=== PATIENT | male | born 1970 | race Caucasian/White ===

== ENCOUNTER 2017-08-24 15:31 | Emergency (ER) | payer SELFPAY ==
[2017-08-24] MEDS ORDERED: Ketorolac Tromethamine 30 MG/ML VIAL ONE (15:58)
[2017-08-24 16:27] LABS: #Eosinphils 0.1 thou/uL (0.0-0.7); #Lymphocytes 1.6 thou/uL (1.20-3.40); #Monocytes 0.8 thou/uL (0.11-0.59); #Neutrophils 4.8 thou/uL (1.40-6.50); %Basophils 0.6 % (0.0-1.0); %Eosinophils 1.6 % (0.0-10.0); %Lymphocytes 21.8 % (21.0-51.0); %Monocytes 10.2 % (0.0-10.0); Hematocrit 41.2 % (42.0-52.0); Mean Platelet Volume 6.6 fL (7.4-10.4); Red Blood Cell (RBC) Count 4.72 mill/uL (4.70-6.10); White Blood Cell (WBC) Count 7.3 thou/uL (4.8-10.8)
[2017-08-24 16:44] LABS: Lactic Acid - Sepsis 1.3 mmol/L (0.5-2.2)
[2017-08-24 16:53] LABS: ALT (SGPT) 27 U/L (8-55); AST (SGOT) 22 U/L (5-34); Alkaline Phosphatase 69 U/L (40-150); Anion Gap 13 mmol/L (10-20); BUN (Urea Nitrogen) 21 mg/dL (8.9-20.6); Bilirubin, Total 0.4 mg/dL (0.2-1.2); Calc. Creatinine Clearance 0 mL/min (70-130); Calcium 9.4 mg/dL (7.8-10.44); Carbon Dioxide 22 mmol/L (22-29); Chloride 105 mmol/L (98-107); Estimated GFR-MDRD 75; Globulin 3.8 g/dL (2.4-3.5); Protein, Total 7.8 g/dL (6.0-8.3)
[2017-08-24] MEDS ORDERED: Morphine 4 MG/ML VIAL ONE (17:08)
--- NOTE | 2017-08-24 20:31 | RAD ---
PELVIS ONE VIEW 08/24/17 HISTORY: Pain. COMPARISON: None. FINDINGS: The exam is limited due to patient rotation. There is gas stretching over the right testicle which ma y be a hernia. There is severe degenerative disease of the right hip with bridging bone formation of the greater tuberosity may be sequela of prior infection. There is heterotopic ossification on the ri ght hip with complete cartilage loss and subchondral sclerosis. There is subchondral cysts of the left hip. IMPRESSION: 1. Gas over the right hemiscrotum may be sequela of a hernia. Clinical correlation advised. 2. Severe degenerative disease of the right hip along with heterotopic ossification and bridging bone between the greater trochanter and the femoral head. These severe asymmetric findings could be sequela of prior septic arthritis. 3. Large subchondral cyst of the left acetabulum. POS: SANTIAGO
--- NOTE | 2017-08-24 20:33 | RAD ---
RIGHT HIP TWO VIEW 08/24/17 HISTORY: Pain. COMPARISON: None. FINDINGS: Severe degenerative changes of the right hip. Heterotopic ossification. Bridging bone within the grea ter trochanter and the femoral head. No displaced fracture. Complete degenerative disc cartilage loss . Lateral upturning of the acetabulum. IMPRESSION: Severe degenerative disease of the right hip with lateral upturning of the acetabulum along with femo ral head remodeling and large subchondral cysts. POS: SANTIAGO
== END 2017-08-24 18:36 | disposition home or self-care (01) ==
LOC: ERS 15:31
DX: M16.11 Unilateral primary osteoarthritis, right hip (principal); F17.210 Nicotine dependence, cigarettes, uncomplicated
CPT/HCPCS: 36415; 72170; 80053; 83605; 85025; 85652; 86140; 96374; 96375; J1885; J2270

== ENCOUNTER 2017-09-08 17:39 | Inpatient (IN) | payer OTHER, SELFPAY ==
[~2017-09-08 17:39] MED LIST: ISOVUE-370 76%-LOCM 1 ML ONE; Iopamidol 370 76% 50 ML VIAL FS ONE
[2017-09-08] MEDS ORDERED: Ibuprofen 200 MG TAB ONE (18:33)
[2017-09-08 19:03] LABS: Hematocrit 44.4 % (42.0-52.0); Mean Platelet Volume 6.1 fL (7.4-10.4); Red Blood Cell (RBC) Count 4.97 mill/uL (4.70-6.10); White Blood Cell (WBC) Count 24.2 thou/uL (4.8-10.8)
[2017-09-08 19:27] LABS: Band 6 % (5-11); Neutrophil 80 % (42-75); Reactive Lymphocytes 1 % (0-10)
[2017-09-08 19:36] LABS: Lactic Acid - Sepsis 2.2 mmol/L (0.5-2.2)
[2017-09-08 19:38] LABS: ALT (SGPT) 86 U/L (8-55); AST (SGOT) 190 U/L (5-34); Alkaline Phosphatase 156 U/L (40-150); Anion Gap 14 mmol/L (10-20); BUN (Urea Nitrogen) 37 mg/dL (8.9-20.6); Bilirubin, Total 0.4 mg/dL (0.2-1.2); Calc. Creatinine Clearance 0 mL/min (70-130); Carbon Dioxide 26 mmol/L (22-29); Chloride 95 mmol/L (98-107); Estimated GFR-MDRD 61; Globulin 6.3 g/dL (2.4-3.5); Protein, Total 9.2 g/dL (6.0-8.3)
[2017-09-08] MEDS ORDERED: Ondansetron HCl/PF 4 MG/2 ML Vial ONE (19:45)
[2017-09-08] MEDS ORDERED: Piperacillin/Tazobactam 4.5 GM in Sodium Chloride 0.9% 100 ML IVPB SCH (19:45)
--- NOTE | 2017-09-08 20:15 | RAD ---
AP VIEW CHEST 09/08/17 HISTORY: Cough. AP view chest is obtained. The lungs are well aerated. No evidence of active intrathoracic disease is seen. No evidence of effusions, pneumonia or pneumothorax seen. IMPRESSION: Unremarkable AP view chest. POS: [facility]
[2017-09-08 20:29] LABS: Sodium 131 mmol/L (135-148)
[2017-09-08] MEDS ORDERED: Morphine 2 mg/2ml in 0.9% NaCl PF SYRINGE ONE (20:29)
[2017-09-08] MEDS ORDERED: Morphine 4 MG/ML VIAL ONE (20:29)
[2017-09-08 20:30] LABS: Mode RA; Modified Allen's Test POSITIVE; Vent NO
[2017-09-08 20:36] LABS: Bilirubin Negative (Negative); Blood, Urine Negative (Negative); Glucose, Urine (Dipstick) Negative (Negative); Ketone, Urine Negative (Negative); Nitrite Negative (Negative); Protein, Urine (Dipstick) Trace mg/dL (Neg-Trace)
[2017-09-08 20:38] LABS: Bacteria/HPF None Seen HPF (None Seen); Hyaline Casts/LPF 7-10 HYALINE CAST LPF (0-3 Hyaline); RBC/HPF 0-3 HPF (0-3); Squamous Epithelial 0-3 HPF (0-3)
--- NOTE | 2017-09-08 22:18 | CT ---
CONTRAST ENHANCED CT IMAGES OF ABDOMEN AND PELVIS 09/08/[address] images of the abdomen and pelvis is obtained after administration of IV and oral contrast. The lung bases are unremarkable. The liver is unremarkable. The spleen contains some splenic granulom as. The pancreas and gallbladder are unremarkable. There is severe degenerative changes seen in the r ight hip joint with extensive interosseous cysts seen. There is a large synovial collection which is eroded upwards into the right iliopsoas muscle extending into the right psoas region migrating upward into the retroperitoneum. This may represent a possible abscess as well versus chronic synovial expa nsion. The right kidney is displaced anteriorly. The left kidney is unremarkable. There is vacuum dis c changes seen at L5-S1 intervertebral disc space. A large right inguinal hernia is seen with herniation of intraperitoneal fat and bowel into the right scrotal sac. IMPRESSION: Severe right hip degenerative change with cystic changes. There is a communication of the right hip j oint with a septated soft tissue collection which has migrated upwards into the right iliopsoas and r ight psoas muscle retroperitoneally. This may represent an unusual extension of synovial or synovial fluid versus possible loculated abscess collection which is originated from a septic right hip. POS: [facility]
[2017-09-08] MEDS ORDERED: Ondansetron ODT 4 MG TAB SL PRN (23:52)
[2017-09-08] MEDS ORDERED: Ondansetron HCl/PF 4 MG/2 ML Vial IVP PRN (23:52)
[2017-09-08] MEDS ORDERED: Acetaminophen 325 MG TAB PO PRN (23:52)
[2017-09-08] MEDS ORDERED: Sodium Chloride 0.9% 1,000 ML IV SCH (23:52)
[2017-09-08] MEDS ORDERED: Morphine 5 mg/5 ml in 0.9% NaCl/PF SYRINGE SLOW IVP PRN (23:54)
[2017-09-08 23:57] VITALS: BMI 25.7
[2017-09-09] MEDS ORDERED: cloNIDine 0.1 MG TAB PO PRN (01:12)
[2017-09-09] MEDS ORDERED: Ondansetron ODT 4 MG TAB PO PRN (01:12)
[2017-09-09] MEDS ORDERED: hydrALAZINE 20 MG/ML VIAL SLOW IVP PRN (01:12)
[2017-09-09] MEDS ORDERED: Ondansetron HCl/PF 4 MG/2 ML Vial IVP PRN (01:12)
[2017-09-09 02:06] LABS: Lactic Acid - Sepsis 0.7 mmol/L (0.5-2.2)
[2017-09-09] MEDS: Sodium Chloride 0.9% 1,000 ML IV SCH ×3 (02:27→16:46)
[2017-09-09] MEDS: Acetaminophen 500 MG TAB PO PRN ×2 (02:29→20:22)
--- NOTE | 2017-09-09 04:44 | HP ---
PRIMARY CARE PROVIDER: Dafne keane. CHIEF COMPLAINT: Abdominal pain and fatigue. HISTORY OF PRESENT ILLNESS: This is a 46-year-old male who presented to [facility] Emergency Department complaining of abdominal pain localizing to the right lower quad rant with hip pain and essentially nonweightbearing with the use of crutches over the last 2-3 weeks. The patient noted fever, worsening pain in the right lower quadrant and hip region with rigors. Th e patient was noted with a T-max of 102.7 degrees and tachycardic. The patient denies any recent tra ridge or injury, but does admit to IV drug abuse with heroin as well as methamphetamines. The patient states he has had to use crutches due to the pain in the right hip which has progressively gotten wor se. The patient describes the pain as sharp in nature, shooting into the back, rating it at 7/10. T he patient also notes a right-sided testicular pain with known history of right inguinal hernia. The patient denies taking any specific alleviating treatment other than the use crutches for ambulation. In the emergency room, the patient underwent evaluation including CT of the abdomen and pelvis show ing evidence of septic arthritis of the right hip with likely abscess into the iliopsoas complex. Th e patient was also noted with an incidental large right inguinal hernia containing peritoneal fat and bowel. The patient was noted with criteria for sepsis and received IV vancomycin and Zosyn in addit ion to 3 liters of normal saline. The patient also received intravenous morphine sulfate and ibuprof en. The patient was transferred to the surgical woods for further evaluation. PAST MEDICAL HISTORY: 1. Polysubstance abuse including heroin and methamphetamines. 2. Tobacco abuse. 3. Right inguinal hernia. PAST SURGICAL HISTORY: Status post vasectomy. CURRENT MEDICATIONS: Reviewed and negative. ALLERGIES: No known drug allergies. FAMILY HISTORY: No inheritable diseases per patient report. SOCIAL HISTORY: The patient resides in [place], [place]. Unemployed. Smokes up to half a pack of ci garettes daily. Positive for IV heroin and methamphetamine use. Occasional alcohol use. REVIEW OF SYSTEMS: The following complete review of systems was negative, unless otherwise mentioned in the HPI or below: Constitutional: Weight loss or gain, ability to conduct usual activities. Skin: Rash, itching. Eyes: Double vision, pain. ENT/Mouth: Nose bleeding, neck stiffness, pain, tenderness. Cardiovascular: Palpitations, dyspnea on exertion, orthopnea. Respiratory: Shortness of breath, wheezing, cough, hemoptysis, fever or night sweats. Gastrointestinal: Poor appetite, abdominal pain, heartburn, nausea, vomiting, constipation, or diarrhea. Genitourinary: Urgency, frequency, dysuria, nocturia. Musculoskeletal: Pain, swelling. Neurologic/Psychiatric: Anxiety, depression. Allergy/Immunologic: Skin rash, bleeding tendency. PHYSICAL EXAMINATION: VITAL SIGNS ON ADMISSION: Blood pressure 108/71, pulse 113, respiratory rate is 18, temperature 101. 8 degrees Fahrenheit, O2 saturation 94% on room air. GENERAL APPEARANCE: This is a 46-year-old male, ill-appearing, in mild distress. HEENT: Pupils are equal, round, and reactive to light and accommodation. Extraocular muscles are in tact. Mild conjunctival injection bilaterally. Nares patent. OP is clear. Teeth in fair repair. NECK: Supple, no cervical adenopathy, no thyromegaly, no carotid bruits, no JVD appreciated. Cervic al spine with full active and passive range of motion. No meningeal signs appreciated. CHEST: Diminished breath sounds in the bases bilaterally. CARDIOVASCULAR: S1, S2 with tachycardia. ABDOMEN: Rounded, soft, nontender, nondistended. Bowel sounds are positive in all 4 quadrants. No hepatosplenomegaly. Mild tenderness to deep palpation in the right upper quadrant. Right inguinal h ernia noted. EXTREMITIES: Warm and dry with fair turgor. Positive tenderness to palpation in the right greater t rochanter region. Limited range of motion and internal external rotation limited by pain. Pulses ar e palpable distally at the dorsalis pedis, posterior tibial, and popliteal arteries bilaterally. Cap illary refill less than 2 seconds. No distal asymmetric edema appreciated. NEUROLOGIC: Cranial nerves II-XII are grossly intact. No focal or lateralizing signs appreciated. PERTINENT LABORATORY AND X-RAY FINDINGS: Sodium 131, potassium 4.4, chloride 95, CO2 of 26, BUN 37, creatinine 1.26 with estimated GFR of 61, glucose 104, lactic acid level ranged between 1.0-2.2, calc ium 10.0, AST 190, ALT of 86, alkaline phosphatase 156, albumin 2.9. CBC showed a white blood cell c ount 24.2, hemoglobin 14, hematocrit 44, platelet count 611 with 80% neutrophilia. Urinalysis showed small leukocyte esterase with 11-20 WBCs per high power field. 7-10 hyaline casts noted. Influenza A and B antigen negative 09/08/2017. Portable chest x-ray dated 09/08/2017 showed no acute cardiopu lmonary process. CT of the abdomen and pelvis dated 09/08/2017 showed severe destructive changes of the right hip with cystic changes noted. Communication of the right hip joint with septated soft tis catherine collection migrating upward to the right iliopsoas and right psoas muscle retroperitoneally. Lar ge right inguinal hernia noted. ASSESSMENT AND PLAN: 1. Sepsis secondary to septic arthritis of the right hip. The patient will be admitted to the surgi hiram woods. We will continue vancomycin 1.25 grams IV q.12h. with additional Zosyn 4.5 grams IV q.6 ho urs. We will consult Orthopedic Surgery Service in the a.m. for evaluation and likely surgical inter vention with incision and debridement. Continue pain control with morphine sulfate 4 mg IV every 4 h ours p.r.n. Continue intravenous normal saline at 125 mL per hour. 2. Question of acute kidney injury. We will continue to avoid nephrotoxic agents and contrast media . Continue intravenous fluids as outlined previously. Repeat creatinine in the a.m. 3. Transaminitis. Suspect secondarily to sepsis; however, patient with polysubstance abuse. Check urine drug screen and hepatitis A, B, and C panel. Repeat LFTs in the a.m. 4. Hyponatremia. Suspect secondarily to #1. Continue normal saline and repeat sodium level in the a.m. 5. Leukocytosis with neutrophilia secondary to #1. Continue treatment as outlined in #1. Repeat CB C in the a.m. 6. Polysubstance abuse including heroin and methamphetamines. We will offer case management consult for drug abstinence programs after discharge. 7. Right inguinal hernia. Refer for outpatient evaluation after discharge. 8. Prophylaxis. Sequential compression devices while in bed. Pepcid 20 mg p.o. b.i.d. 9. Code status is full. Surrogate medical decision maker is the patient's mother.
[2017-09-09] MEDS: Piperacillin/Tazobactam 4.5 GM in Sodium Chloride 0.9% 100 ML IVPB SCH ×3 (05:16→17:09)
[2017-09-09 06:19] LABS: Band 5 % (5-11); Hematocrit 34.5 % (42.0-52.0); Mean Platelet Volume 5.9 fL (7.4-10.4); Neutrophil 83 % (42-75); Red Blood Cell (RBC) Count 3.88 mill/uL (4.70-6.10); White Blood Cell (WBC) Count 20.3 thou/uL (4.8-10.8)
[2017-09-09] MEDS: Morphine 4 MG/ML VIAL SLOW IVP PRN (06:31)
[2017-09-09 06:40] LABS: ALT (SGPT) 59 U/L (8-55); AST (SGOT) 94 U/L (5-34); Alkaline Phosphatase 111 U/L (40-150); Anion Gap 11 mmol/L (10-20); BUN (Urea Nitrogen) 30 mg/dL (8.9-20.6); Bilirubin, Total 0.3 mg/dL (0.2-1.2); Calc. Creatinine Clearance 105 mL/min (70-130); Calcium 8.8 mg/dL (7.8-10.44); Carbon Dioxide 24 mmol/L (22-29); Chloride 103 mmol/L (98-107); Estimated GFR-MDRD 70; Globulin 4.4 g/dL (2.4-3.5); Protein, Total 6.4 g/dL (6.0-8.3)
[2017-09-09 06:44] LABS: Amphetamine Detected (NotDetected); Methadone Not Detected (NotDetected); Methamphetamine Detected (NotDetected)
[2017-09-09] MEDS: Famotidine 20 MG TAB PO SCH ×3 (07:06→21:53)
--- NOTE | 2017-09-09 08:09 | CON ---
DATE OF CONSULTATION: 09/09/2017 CHIEF COMPLAINT: Right hip pain. HISTORY OF PRESENT ILLNESS: Mr. Jeffries is a 46-year-old male who presented to the emergency departm ent last night with severe right lower quadrant abdominal pain and hip pain. He has been basically i n bed for the last 2 weeks because of this pain. He has been worsening steadily. He has had fevers and chills. He presented with temperature max of 102.7. The patient underwent CT scan to rule out a ppendicitis; however, instead of that, he was found to have a large iliopsoas abscess with possible e xtension into the hip joint. Orthopedics was consulted for this finding. He has been admitted to [facility]. He has been started on intravenous antibiotics. He has received pain medication. PAST MEDICAL HISTORY: 1. Polysubstance abuse including intravenous heroin and methamphetamine. 2. Tobacco. 3. Right inguinal hernia. PAST SURGICAL HISTORY: Vasectomy. CURRENT MEDICATIONS: None. ALLERGIES: No known drug allergies. FAMILY MEDICAL HISTORY: Noncontributory. SOCIAL HISTORY: The patient again uses intravenous drugs. He is unemployed. He smokes cigarettes. He drinks alcohol. REVIEW OF SYSTEMS: Positive for right hip pain as well as abdominal pain. IMAGES: CT scan of the abdomen and pelvis is reviewed which demonstrates a large abscess of the righ t iliopsoas as well as extension around and possibly into the right hip joint. The patient has sever e chronic destructive and degenerative changes of the right hip joint. PHYSICAL EXAMINATION: VITAL SIGNS: Temperature is 98.1, pulse is 91, respiratory rate 16, oxygen saturation 92%, blood pre ssure is 103/63. GENERAL: The patient is lying on his left side. He will answer questions appropriately, in no appar ent distress. HEENT: Normocephalic and atraumatic. RESPIRATORY: Breathing comfortably. ABDOMEN: Soft and nondistended. He does have tenderness to palpation over the right lower quadrant. MUSCULOSKELETAL: He has pain with hip motion. There is swelling of his right thigh and hip. NEUROLOGICAL: He is neurovascularly intact distally. IMPRESSION: Right iliopsoas abscess and possible septic hip arthritis with chronic destructive carrasco es of the hip. PLAN: Given the CT scan findings, at this point, it appears that the primary focus of infection is a long the iliopsoas muscle with abscess formation. It is possible this involves the hip joint. [facility] er, the hip joint capsule has apparently spontaneously drained. At this point, I will recommend Inte rventional Radiology to place a percutaneous drain into the abscess if possible. This is in conjunct ion with intravenous antibiotics should treat his infectious process. This will allow a culture and sample to be taken. If this could not be achieved, we could consider operative drainage; however, dr guillermo the iliopsoas abscess is a largely invasive procedure and hopefully could be avoided. We will continue to follow and see the results of drainage with Interventional Radiology. He will have pain control. He has been started on intravenous antibiotics. Continue n.p.o. until after procedure.
[2017-09-09] MEDS: HYDROcodone/Acetaminophen 10/325 mg Tablet PO PRN ×2 (08:24→20:23)
[2017-09-09 08:48] LABS: Prothrombin Time 15.5 SEC (12.0-14.7)
[2017-09-09 08:49] LABS: PTT 34.2 SEC (22.9-36.1)
[2017-09-09] MEDS: Vancomycin HCl 1.5 GM in Sodium Chloride 0.9% 250 ML 300 ML IVPB SCH ×2 (08:56→21:40)
[2017-09-09] MEDS ORDERED: FLU VACC QS2017-18 36 mo. & older 0.5 ML SYRINGE IM ONE (09:00)
--- NOTE | 2017-09-09 12:05 | PDOC.EVN ---
Event Note - Event Note Event Note: Chart reviewed. Pt seen. c/o R hip pain. Awaiting abscess drainage. Will follow.
[2017-09-09] MEDS ORDERED: Midazolam HCl 2 mg/2 ml Vial ONE (13:00)
[2017-09-09] MEDS ORDERED: Fentanyl 100 MCG/2 ML VIAL ONE (13:00)
--- NOTE | 2017-09-09 16:31 | CT ---
CT GUIDED ABSCESS DRAINAGE 09/09/17 CLINICAL HISTORY: Pelvic abscess. PROCEDURE: Informed consent was obtained. Patient was escorted to the procedural suite and placed in a supine po sition. Tube Machine Operator Helper imaging revealed the abscess of interest within the right hemipelvis. The right hemipel vis was then prepped and draped in standard sterile fashion. Topical anesthesia was achieved with bu ffered 1% lidocaine. A small skin incision was made through which a 5 Slovak Yueh catheter was advanc ed into the infectious fluid collection of the right hemipelvis occupying expected region of the righ t iliacus muscle. The inner stylet of the Yueh catheter was removed and was exchanged for an Amplatz wire. The Yueh catheter was then removed and was exchanged for a 6 Slovak pigtail catheter which was advanced over the guide wire into the fluid cavity. Inner stylet was removed and the catheter was coi led as the guidewire was removed. Aspiration of the catheter yielded 10 mL of turbid, brown fluid. Th e fluid was placed into a sealed container and was sent to Laboratory for further analysis. The dave ter was then attached to a drainage bag and the catheter was secured to the patient's anterior lower abdominal wall with a Percu-Stay device. IMPRESSION: Technically successful drainage catheter placement within the right hemipelvic abscess. Laboratory results of the aspirated fluid are pending. POS: SANTIAGO
[2017-09-10] MEDS: Piperacillin/Tazobactam 4.5 GM in Sodium Chloride 0.9% 100 ML IVPB SCH ×4 (00:31→18:14)
[2017-09-10] MEDS: HYDROcodone/Acetaminophen 10/325 mg Tablet PO PRN ×4 (07:01→23:31)
[2017-09-10] MEDS: Sodium Chloride 0.9% 1,000 ML IV SCH (07:49)
[2017-09-10 09:09] LABS: Vancomycin, Trough 16.3 ug/mL
[2017-09-10] MEDS: Vancomycin HCl 1.5 GM in Sodium Chloride 0.9% 250 ML 300 ML IVPB SCH ×2 (09:54→21:06)
[2017-09-10] MEDS: Famotidine 20 MG TAB PO SCH ×2 (09:55→21:05)
--- NOTE | 2017-09-10 14:41 | PDOC.PN ---
- Subjective Encounter Start Date: 09/10/17 Encounter Start Time: 10:20 Pt seen for followup re: diarrhea. Reports pain still present right buttock to thigh, but medications are helping. No nausea, vomiting. Had diarrhea today. - Objective Resuscitation Status: Resuscitation Status FULL:Full Resuscitation MAR Reviewed: Yes Vital Signs & Weight: Vital Signs (12 hours) Temp Pulse Resp BP Pulse Ox 09/10/17 08:19 97.8 F 76 18 143/90 H 97 09/10/17 08:16 99.3 F 81 18 123/78 95 09/10/17 08:00 97.8 F 76 18 09/10/17 04:29 97.8 F 82 20 134/86 94 L I&O: 09/09/17 09/10/17 09/11/17 06:59 06:59 06:59 Intake Total 4650 Output Total 350 Balance 4300 Result Diagrams: 09/09/17 05:35 09/09/17 05:35 Phys Exam - Physical Examination Constitutional: NAD HEENT: moist MMs Neck: supple Respiratory: clear to auscultation bilateral Cardiovascular: RRR Gastrointestinal: positive bowel sounds Musculoskeletal: pulses present R thigh decreased ROM Neurological: moves all 4 limbs Psychiatric: normal affect Dx/Plan (1) Diarrhea Code(s): R19.7 - DIARRHEA, UNSPECIFIED Status: Acute (2) Iliopsoas abscess on right Code(s): K68.12 - PSOAS MUSCLE ABSCESS Status: Acute (3) Tobacco abuse Code(s): Z72.0 - TOBACCO USE Status: Chronic (4) Polysubstance abuse Code(s): F19.10 - OTHER PSYCHOACTIVE SUBSTANCE ABUSE, UNCOMPLICATED Status: Chronic - Plan continue antibiotics, out of bed/ambulate, DVT proph w/SCDs * . Continue IV Zosyn, IV vancomycin. s/p IR guided drainage of abscess. Smoking cessation counselling provided, start nicotine patch. Recreational drug use cessation counselling provided. Check stool studies (cultures, C. diff screen). Review of Systems - Review of Systems Respiratory: negative: Cough, Dry, Shortness of Breath, Hemoptysis, SOB with Excertion, Pleuritic Pain, Sputum, Wheezing Cardiovascular: negative: Chest Pain, Palpitations, Orthopnea, Paroxysmal Noc. Dyspnea, Edema, Light Headedness Musculoskeletal: Other (Thigh pain) - Medications/Allergies Allergies/Adverse Reactions: Allergies Allergy/AdvReac Type Severity Reaction Status Date / Time No Known Drug Allergies Allergy Verified 09/09/17 00:00 Medications: Current Medications Acetaminophen (Tylenol) 1,000 mg PO Q6H PRN PRN Reason: Headache/Fever or Mild Pain Last Admin: 09/09/17 20:22 Dose: 500 mg Hydrocodone Bitart/Acetaminophen ([place] 10/325) 2 tab PO Q4H PRN PRN Reason: Pain Last Admin: 09/10/17 13:57 Dose: 2 tab Clonidine (Catapres) 0.1 mg PO Q4H PRN PRN Reason: Systolic BP > 180 Famotidine (Pepcid) 20 mg PO BID [facility] Last Admin: 09/10/17 09:55 Dose: 20 mg Hydralazine HCl (Apresoline) 10 mg SLOW IVP Q4H PRN PRN Reason: Systolic BP > 180 Piperacillin Sod/Tazobactam (Sod 4.5 gm/ Sodium Chloride) 100 mls @ 200 mls/hr IVPB Q6HR [facility] Last Admin: 09/10/17 12:52 Dose: 100 mls Vancomycin HCl 1.5 gm/ Sodium (Chloride) 300 mls @ 200 mls/hr IVPB Q12HR [facility] Last Admin: 09/10/17 09:54 Dose: 300 mls Lorazepam (Ativan) 1 mg PO Q4H PRN PRN Reason: Anxiety/Agitation Miscellaneous Medication (Pharmacy To Dose) 0 each IVPB PRN PRN PRN Reason: [facility] Pharmacy to Dose Morphine Sulfate (Morphine) 4 mg SLOW IVP Q4H PRN PRN Reason: Moderate to Severe Pain (6-10) Last Admin: 09/09/17 06:31 Dose: 4 mg Ondansetron HCl (Zofran Odt) 4 mg PO Q6H PRN PRN Reason: Nausea/Vomiting Ondansetron HCl (Zofran) 4 mg IVP Q6H PRN PRN Reason: Nausea/Vomiting Sodium Chloride (Flush - Normal Saline) 10 ml IVF Q12HR [facility] Last Admin: 09/10/17 09:55 Dose: 10 ml Sodium Chloride (Flush - Normal Saline) 10 ml IVF PRN PRN PRN Reason: Saline Flush
[2017-09-10] MEDS: Nicotine 14 MG PATCH TD SCH ×2 (18:14→18:24)
[2017-09-11] MEDS: Piperacillin/Tazobactam 4.5 GM in Sodium Chloride 0.9% 100 ML IVPB SCH ×3 (00:48→11:55)
[2017-09-11] MEDS: HYDROcodone/Acetaminophen 10/325 mg Tablet PO PRN ×2 (06:12→10:10)
[2017-09-11] MEDS: Famotidine 20 MG TAB PO SCH ×2 (08:41→21:08)
[2017-09-11] MEDS: Vancomycin HCl 1.5 GM in Sodium Chloride 0.9% 250 ML 300 ML IVPB SCH (08:41)
[2017-09-11 08:53] LABS: #Basophils 0.1 thou/uL (0.0-0.2); #Eosinphils 0.1 thou/uL (0.0-0.7); #Lymphocytes 1.7 thou/uL (1.20-3.40); #Monocytes 0.9 thou/uL (0.11-0.59); #Neutrophils 14.3 thou/uL (1.40-6.50); %Basophils 0.5 % (0.0-1.0); %Eosinophils 0.9 % (0.0-10.0); %Lymphocytes 9.8 % (21.0-51.0); Hematocrit 36.3 % (42.0-52.0); Mean Platelet Volume 5.9 fL (7.4-10.4); Red Blood Cell (RBC) Count 4.06 mill/uL (4.70-6.10)
[2017-09-11] MEDS: Nicotine 14 MG PATCH TD SCH (11:06)
[2017-09-11 11:12] LABS: Hep C PCR-Quant HCV Not Detected IU/mL (.)
[2017-09-11] MEDS ORDERED: traMADol HCl 50 MG TAB PO PRN (13:28)
--- NOTE | 2017-09-11 13:34 | PDOC.PN ---
- Subjective Encounter Start Date: 09/11/17 Encounter Start Time: 13:33 Pt seen for followup re: diarrhea. Sleepy but arousable, no new complaints, still has diarrhea. - Objective Resuscitation Status: Resuscitation Status FULL:Full Resuscitation MAR Reviewed: Yes Vital Signs & Weight: Vital Signs (12 hours) Temp Pulse Resp BP Pulse Ox 09/11/17 11:00 98.2 F 84 18 131/85 93 L 09/11/17 07:33 98 F 68 14 114/70 94 L 09/11/17 07:20 99.4 F 85 19 09/11/17 04:00 98.4 F 79 16 109/73 95 I&O: 09/10/17 09/11/17 09/12/17 06:59 06:59 06:59 Intake Total 4650 650 Output Total 350 720 Balance 4300 -70 Result Diagrams: 09/11/17 08:34 09/09/17 05:35 Phys Exam - Physical Examination Constitutional: NAD HEENT: moist MMs Neck: supple Respiratory: clear to auscultation bilateral Cardiovascular: RRR Gastrointestinal: soft R hip tenderness Neurological: moves all 4 limbs Psychiatric: normal affect Dx/Plan (1) Diarrhea Code(s): R19.7 - DIARRHEA, UNSPECIFIED Status: Acute (2) Iliopsoas abscess on right Code(s): K68.12 - PSOAS MUSCLE ABSCESS Status: Acute (3) Tobacco abuse Code(s): Z72.0 - TOBACCO USE Status: Chronic (4) Polysubstance abuse Code(s): F19.10 - OTHER PSYCHOACTIVE SUBSTANCE ABUSE, UNCOMPLICATED Status: Chronic - Plan * .Staph aureus growing in hip aspirate, resistant to Zosyn, sensitive to vancomycin. * Will change antibiotic to ceftriaxone. * Await stool C. diff test * Continue NRT Review of Systems - Review of Systems Respiratory: negative: Cough, Dry, Shortness of Breath, Hemoptysis, SOB with Excertion, Pleuritic Pain, Sputum, Wheezing Cardiovascular: negative: Chest Pain, Palpitations, Orthopnea, Paroxysmal Noc. Dyspnea, Edema, Light Headedness, Other Gastrointestinal: Diarrhea - Medications/Allergies Allergies/Adverse Reactions: Allergies Allergy/AdvReac Type Severity Reaction Status Date / Time No Known Drug Allergies Allergy Verified 09/09/17 00:00 Medications: Current Medications Acetaminophen (Tylenol) 1,000 mg PO Q6H PRN PRN Reason: Headache/Fever or Mild Pain Last Admin: 09/09/17 20:22 Dose: 500 mg Hydrocodone Bitart/Acetaminophen ([place] 10/325) 2 tab PO Q4H PRN PRN Reason: Pain Last Admin: 09/11/17 10:10 Dose: 2 tab Clonidine (Catapres) 0.1 mg PO Q4H PRN PRN Reason: Systolic BP > 180 Famotidine (Pepcid) 20 mg PO BID [facility] Last Admin: 09/11/17 08:41 Dose: 20 mg Hydralazine HCl (Apresoline) 10 mg SLOW IVP Q4H PRN PRN Reason: Systolic BP > 180 Ceftriaxone Sodium 1 gm/ (Sodium Chloride) 100 mls @ 200 mls/hr IVPB Q24HR [facility] Lorazepam (Ativan) 1 mg PO Q4H PRN PRN Reason: Anxiety/Agitation Miscellaneous Medication (Pharmacy To Dose) 0 each IVPB PRN PRN PRN Reason: [facility] Pharmacy to Dose Morphine Sulfate (Morphine) 4 mg SLOW IVP Q4H PRN PRN Reason: Moderate to Severe Pain (6-10) Last Admin: 09/09/17 06:31 Dose: 4 mg Nicotine (Nicoderm Patch) 14 mg TD Q24HR [facility] Last Admin: 09/11/17 11:06 Dose: Not Given Ondansetron HCl (Zofran Odt) 4 mg PO Q6H PRN PRN Reason: Nausea/Vomiting Ondansetron HCl (Zofran) 4 mg IVP Q6H PRN PRN Reason: Nausea/Vomiting Sodium Chloride (Flush - Normal Saline) 10 ml IVF Q12HR [facility] Last Admin: 09/11/17 08:41 Dose: Not Given Sodium Chloride (Flush - Normal Saline) 10 ml IVF PRN PRN PRN Reason: Saline Flush Tramadol HCl (Ultram) 50 mg PO Q6H PRN PRN Reason: Pain
[2017-09-11] MEDS ORDERED: cefTRIAXone\\ROCEPHIN 1 GM in Sodium Chloride 0.9% 100 ML IVPB SCH (13:45)
[2017-09-11] MEDS: cefTRIAXone\\ROCEPHIN 1 GM, Syringe 0.4 ML in Sterile Water 9.6 ML SLOW IVP SCH (14:36)
[2017-09-11] MEDS ORDERED: Acetaminophen/Codeine 30-300mg Tablet PO PRN (17:46)
[2017-09-11] MEDS: traMADol HCl 50 MG TAB PO PRN (18:10)
[2017-09-11] MEDS: Acetaminophen/Codeine 30-300mg Tablet PO PRN (23:22)
[2017-09-11] MEDS: Lorazepam 1 MG TAB PO PRN (23:26)
[2017-09-12] MEDS: traMADol HCl 50 MG TAB PO PRN ×3 (06:51→20:59)
[2017-09-12] MEDS: Famotidine 20 MG TAB PO SCH ×2 (10:00→20:56)
[2017-09-12] MEDS: Nicotine 14 MG PATCH TD SCH (10:07)
[2017-09-12] MEDS: Acetaminophen/Codeine 30-300mg Tablet PO PRN ×2 (12:06→18:21)
--- NOTE | 2017-09-12 13:25 | PDOC.PN ---
- Subjective Encounter Start Date: 09/12/17 Encounter Start Time: 08:40 Pt seen for followup re: psoas abscess. No chest pain or shortness of breath. No fevers. - Objective Resuscitation Status: Resuscitation Status FULL:Full Resuscitation MAR Reviewed: Yes Vital Signs & Weight: Vital Signs (12 hours) Temp Pulse Resp BP Pulse Ox 09/12/17 12:00 98.5 F 79 14 107/65 95 09/12/17 08:00 97.9 F 79 14 143/89 H 93 L 09/12/17 07:24 98.1 F 76 16 09/12/17 04:00 98.1 F 76 16 122/79 98 I&O: 09/11/17 09/12/17 09/13/17 06:59 06:59 06:59 Intake Total 650 2960 Output Total 720 2270 Balance -70 690 Result Diagrams: 09/11/17 08:34 09/09/17 05:35 Phys Exam - Physical Examination Constitutional: NAD HEENT: moist MMs Neck: supple Respiratory: clear to auscultation bilateral Cardiovascular: RRR Gastrointestinal: soft Musculoskeletal: pulses present R hip tender Neurological: moves all 4 limbs Psychiatric: normal affect Dx/Plan (1) Iliopsoas abscess on right Code(s): K68.12 - PSOAS MUSCLE ABSCESS Status: Acute (2) Diarrhea Code(s): R19.7 - DIARRHEA, UNSPECIFIED Status: Acute (3) Tobacco abuse Code(s): Z72.0 - TOBACCO USE Status: Chronic (4) Polysubstance abuse Code(s): F19.10 - OTHER PSYCHOACTIVE SUBSTANCE ABUSE, UNCOMPLICATED Status: Chronic - Plan PT/OT, out of bed/ambulate * . Consult ID re; antibiotic choice and duration of treatment. Pt has some back pain as well. C. diff -ve. Start Imodium. Ambulate patient. Review of Systems - Review of Systems Constitutional: negative: Fever, Chills, Sweats, Weakness, Malaise Musculoskeletal: Other Other: RLE pain - Medications/Allergies Allergies/Adverse Reactions: Allergies Allergy/AdvReac Type Severity Reaction Status Date / Time No Known Drug Allergies Allergy Verified 09/09/17 00:00 Medications: Current Medications Acetaminophen (Tylenol) 1,000 mg PO Q6H PRN PRN Reason: Headache/Fever or Mild Pain Last Admin: 09/09/17 20:22 Dose: 500 mg Acetaminophen/Codeine Phosphate (Tylenol #3) 1 tab PO Q6H PRN PRN Reason: Pain 1-3 1ST LINE Acetaminophen/Codeine Phosphate (Tylenol #3) 2 tab PO Q6H PRN PRN Reason: Pain 1-3 2ND LINE Last Admin: 09/12/17 12:06 Dose: 2 tab Clonidine (Catapres) 0.1 mg PO Q4H PRN PRN Reason: Systolic BP > 180 Famotidine (Pepcid) 20 mg PO BID [facility] Last Admin: 09/12/17 10:00 Dose: 20 mg Hydralazine HCl (Apresoline) 10 mg SLOW IVP Q4H PRN PRN Reason: Systolic BP > 180 Ceftriaxone Sodium 1 gm/ (Syringe 0.4 ml/ Sterile Water) 10 mls @ 120 mls/hr SLOW IVP 1500 [facility] Last Admin: 09/11/17 14:36 Dose: 10 mls Lorazepam (Ativan) 1 mg PO Q4H PRN PRN Reason: Anxiety/Agitation Last Admin: 09/11/17 23:26 Dose: 1 mg Morphine Sulfate (Morphine) 4 mg SLOW IVP Q4H PRN PRN Reason: Moderate to Severe Pain (6-10) Last Admin: 09/09/17 06:31 Dose: 4 mg Nicotine (Nicoderm Patch) 14 mg TD Q24HR [facility] Last Admin: 09/12/17 10:07 Dose: Not Given Ondansetron HCl (Zofran Odt) 4 mg PO Q6H PRN PRN Reason: Nausea/Vomiting Ondansetron HCl (Zofran) 4 mg IVP Q6H PRN PRN Reason: Nausea/Vomiting Sodium Chloride (Flush - Normal Saline) 10 ml IVF Q12HR [facility] Last Admin: 09/12/17 09:58 Dose: Not Given Sodium Chloride (Flush - Normal Saline) 10 ml IVF PRN PRN PRN Reason: Saline Flush Tramadol HCl (Ultram) 50 mg PO Q6H PRN PRN Reason: Moderate Pain (4-6) Tramadol HCl (Ultram) 100 mg PO Q6H PRN PRN Reason: Pain 7-10 Last Admin: 09/12/17 06:51 Dose: 100 mg
[2017-09-12] MEDS ORDERED: Loperamide HCl 2 MG CAP PO PRN (13:28)
[2017-09-12] MEDS ORDERED: Loperamide HCl 2 MG CAP PO SCH (13:45)
[2017-09-12] MEDS: cefTRIAXone\\ROCEPHIN 1 GM, Syringe 0.4 ML in Sterile Water 9.6 ML SLOW IVP SCH (14:51)
[2017-09-13] MEDS: Morphine 4 MG/ML VIAL SLOW IVP PRN ×4 (00:17→21:52)
[2017-09-13] MEDS: Acetaminophen/Codeine 30-300mg Tablet PO PRN (03:23)
[2017-09-13 05:21] LABS: #Eosinphils 0.2 thou/uL (0.0-0.7); #Lymphocytes 1.7 thou/uL (1.20-3.40); #Monocytes 0.7 thou/uL (0.11-0.59); #Neutrophils 7.3 thou/uL (1.40-6.50); %Basophils 0.2 % (0.0-1.0); %Eosinophils 2.2 % (0.0-10.0); %Monocytes 7.4 % (0.0-10.0); Hematocrit 34.1 % (42.0-52.0); Mean Platelet Volume 6.1 fL (7.4-10.4); Red Blood Cell (RBC) Count 3.88 mill/uL (4.70-6.10)
[2017-09-13 05:41] LABS: Anion Gap 11 mmol/L (10-20); BUN (Urea Nitrogen) 10 mg/dL (8.9-20.6); Calc. Creatinine Clearance 154 mL/min (70-130); Calcium 9.1 mg/dL (7.8-10.44); Carbon Dioxide 26 mmol/L (22-29); Chloride 103 mmol/L (98-107); Estimated GFR-MDRD Greater than 90
[2017-09-13] MEDS: Famotidine 20 MG TAB PO SCH ×2 (09:55→21:53)
--- NOTE | 2017-09-13 12:40 | CON ---
DATE OF CONSULTATION: 09/13/2017 REASON FOR CONSULTATION: Staphylococcus aureus infection, right hip. HISTORY OF PRESENT ILLNESS: A 46-year-old with a history of IV drug use with heroin and methamphetam randy, previously on Suboxone treatment for drug dependency, but apparently the patient has stopped us ing it recently and has resumed IV heroin. He developed progressively worsening pain in the right hi p, which led to his admission. The patient had imaging study with an abdomen and pelvis CT on 2016, which demonstrated severe right hip degenerative change with cystic changes and a septated soft tissue collection extending from the hip joint towards the iliopsoas muscle on the right side. The patient had a CT-guided drainage. A catheter was advanced into the fluid collection and about 10 mL of turbid brown fluid was removed and then the catheter left for drainage. The patient is currently receiving ceftriaxone. He is still having quite a bit of pain and is unable to bear weight on the ri ght lower extremity. He is having withdrawals from his heroin, at this time with shivering. No head aches, visual symptoms, sore throat, odynophagia, dysphagia. No back pain, no chest pain, no dyspnea , no abdominal pain. Voiding without difficulty and some diarrhea. No other joint involvement noted at this time. PAST MEDICAL HISTORY: IV heroin and methamphetamine use, chronic smoking, inguinal hernia. PAST SURGICAL HISTORY: Vasectomy. ALLERGIES: None. MEDICATIONS: Medications have been listed above. FAMILY HISTORY: Noncontributory. SOCIAL HISTORY: Lives in [place] and has the drug use problems noted above, had been on Suboxone ma nagement of opioid dependency. Occasional alcoholic beverage use. PHYSICAL EXAMINATION: VITAL SIGNS: With a T-max 102.6. This has defervesced since admission. Blood pressure 120/80, puls e 71, respirations 16, O2 sat 96%. GENERAL: Shivering, a little bit diaphoretic, peripheral IV access in one of the extremities, no Fol ey catheter. LYMPH: No lymphadenopathy. HEENT: Ocular movements are conjugate. Pupils are equal and reactive. Nasal passages patent. Oral cavity normal. NECK: Supple. LUNGS: With symmetric clear breath sounds. HEART: S1, S2, regular rate without murmurs. ABDOMEN: Soft, not distended or tender, marked limitation of range of motion of the right hip. The patient has a percutaneous catheter in the anterior right groin region. EXTREMITIES: No other joint inflammatory process. Pulses are 1+ in dorsalis pedis. No edema. Plan tar responses are flexor. NEUROLOGIC: Cognitive function appears to be intact. LABORATORY DATA: White cell count down from 24,000 to 10,000, hemoglobin 11, platelets 482, 72% neut rophils. INR 1.2, pH 7.46, pCO2 of 32, pO2 of 70. Sodium 136; creatinine down to 0.76; AST 190, now 94; ALT 59; albumin 2.0. Patient is HIV serology nonreactive, hepatitis C antibody positive, but RN A PCR not detected. Toxicology positive for amphetamines. The imaging studies noted above. Chest x -ray unremarkable findings. ASSESSMENT: 1. IV methamphetamine and heroin use. 2. Right hip methicillin-resistant Staphylococcus aureus infection with extension into the psoas mus grey. 3. Withdrawal syndrome. DISCUSSION: The patient likely has had bacteremia with seeding of the right hip; the possibility of endocarditis is also considered. Other sites of involvement are not apparent at this time. Possibil ity of diskitis in the lumbosacral area with extension of the iliopsoas muscle is another considerati on, although he does not have significant pain in the back area. He will need protracted IV antimicr obial therapy with Rocephin given 2 grams daily until approximately 10/29/2017 with weekly labs. The issue of administration of outpatient antimicrobial therapy through PICC lines in IV drug users is c ontroversial. There are no guidelines. Some series published from other centers have demonstrated t he feasibility of doing such as long as there is clearcut establishment of goals and risks. Discusse d with patient the need to assume the responsibility of managing the access properly and avoiding rel apse. In this case, for example, he would have to resume his Suboxone withdrawal management program. The alternate would be to give intramuscular Rocephin, but I believe that it would not be feasible and most likely would lead to patient discontinuing treatment and end up being readmitted. So, I thi nk I would go ahead with a PICC line placement and plan for treatment in the outpatient oncology area with daily Rocephin until 10/29/2017 with weekly labs including CBC, CRP, comprehensive metabolic pa tramaine. Patient not ready for discharge planning at this time, still needs to become more functional be fore he can be discharged. We will go ahead and order a 2D echo to complete the workup. May need to order a lumbosacral spine MRI depending on clinical progress.
--- NOTE | 2017-09-13 14:48 | PDOC.PN ---
- Subjective Encounter Start Date: 09/13/17 Encounter Start Time: 08:40 Pt seen for followup re: psoas abscess. Reports pain R hip. Did not sleep well. Feels chills. - Objective Resuscitation Status: Resuscitation Status FULL:Full Resuscitation MAR Reviewed: Yes Vital Signs & Weight: Vital Signs (12 hours) Temp Pulse Resp BP Pulse Ox 09/13/17 11:35 98.4 F 71 16 125/82 97 09/13/17 08:00 97.6 F 71 16 09/13/17 07:20 97.6 F 71 16 125/80 96 I&O: 09/12/17 09/13/17 09/14/17 06:59 06:59 06:59 Intake Total 2960 2400 360 Output Total 2270 1930 Balance 690 470 360 Result Diagrams: 09/13/17 04:50 09/13/17 04:50 Phys Exam - Physical Examination Constitutional: NAD HEENT: moist MMs Neck: supple Respiratory: clear to auscultation bilateral Cardiovascular: RRR Gastrointestinal: soft R hip tenderness Neurological: moves all 4 limbs Psychiatric: normal affect Dx/Plan (1) Iliopsoas abscess on right Code(s): K68.12 - PSOAS MUSCLE ABSCESS Status: Acute (2) Tobacco abuse Code(s): Z72.0 - TOBACCO USE Status: Chronic (3) Polysubstance abuse Code(s): F19.10 - OTHER PSYCHOACTIVE SUBSTANCE ABUSE, UNCOMPLICATED Status: Chronic (4) Diarrhea Code(s): R19.7 - DIARRHEA, UNSPECIFIED Status: Resolved - Plan continue antibiotics, PT/OT, out of bed/ambulate, DVT proph w/lovenox * . Continue IV antibiotics as below. Appreciate ID service input. Review of Systems - Review of Systems Constitutional: Chills. negative: Fever, Sweats, Weakness, Malaise Cardiovascular: negative: Chest Pain, Palpitations, Orthopnea, Paroxysmal Noc. Dyspnea, Edema, Light Headedness Musculoskeletal: Other (R hip pain) - Medications/Allergies Allergies/Adverse Reactions: Allergies Allergy/AdvReac Type Severity Reaction Status Date / Time No Known Drug Allergies Allergy Verified 09/09/17 00:00 Medications: Current Medications Acetaminophen (Tylenol) 1,000 mg PO Q6H PRN PRN Reason: Headache/Fever or Mild Pain Last Admin: 09/09/17 20:22 Dose: 500 mg Acetaminophen/Codeine Phosphate (Tylenol #3) 1 tab PO Q6H PRN PRN Reason: Pain 1-3 1ST LINE Acetaminophen/Codeine Phosphate (Tylenol #3) 2 tab PO Q6H PRN PRN Reason: Pain 1-3 2ND LINE Last Admin: 09/13/17 03:23 Dose: 2 tab Clonidine (Catapres) 0.1 mg PO Q4H PRN PRN Reason: Systolic BP > 180 Famotidine (Pepcid) 20 mg PO BID [facility] Last Admin: 09/13/17 09:55 Dose: 20 mg Hydralazine HCl (Apresoline) 10 mg SLOW IVP Q4H PRN PRN Reason: Systolic BP > 180 Ceftriaxone Sodium 1 gm/ (Syringe 0.4 ml/ Sterile Water) 10 mls @ 120 mls/hr SLOW IVP 1500 [facility] Last Admin: 09/12/17 14:51 Dose: 10 mls Loperamide HCl (Imodium) 2 mg PO PRN PRN PRN Reason: Diarrhea/Loose Stools Lorazepam (Ativan) 1 mg PO Q4H PRN PRN Reason: Anxiety/Agitation Last Admin: 09/11/17 23:26 Dose: 1 mg Melatonin (Melatonin) 3 mg PO HSPRN PRN PRN Reason: Insomnia Morphine Sulfate (Morphine) 4 mg SLOW IVP Q4H PRN PRN Reason: Severe Pain (7-10) Last Admin: 09/13/17 10:16 Dose: 4 mg Morphine Sulfate (Morphine) 2 mg SLOW IVP Q4H PRN PRN Reason: Moderate Pain (4-6) Nicotine (Nicoderm Patch) 14 mg TD Q24HR [facility] Last Admin: 09/12/17 10:07 Dose: Not Given Ondansetron HCl (Zofran Odt) 4 mg PO Q6H PRN PRN Reason: Nausea/Vomiting Ondansetron HCl (Zofran) 4 mg IVP Q6H PRN PRN Reason: Nausea/Vomiting Sodium Chloride (Flush - Normal Saline) 10 ml IVF Q12HR [facility] Last Admin: 09/13/17 09:56 Dose: Not Given Sodium Chloride (Flush - Normal Saline) 10 ml IVF PRN PRN PRN Reason: Saline Flush Tramadol HCl (Ultram) 50 mg PO Q6H PRN PRN Reason: Moderate Pain (4-6) Tramadol HCl (Ultram) 100 mg PO Q6H PRN PRN Reason: Pain 7-10 Last Admin: 09/12/17 20:59 Dose: 100 mg
[2017-09-13] MEDS: Nicotine 14 MG PATCH TD SCH (15:33)
[2017-09-13] MEDS: Lorazepam 1 MG TAB PO PRN ×2 (15:35→16:19)
[2017-09-13] MEDS: cefTRIAXone\\ROCEPHIN 1 GM, Syringe 0.4 ML in Sterile Water 9.6 ML SLOW IVP SCH (15:54)
[2017-09-13] MEDS: Melatonin 3 MG TAB PO PRN (22:17)
[2017-09-14] MEDS: Lorazepam 1 MG TAB PO PRN (00:28)
[2017-09-14 05:37] LABS: #Basophils 0.1 thou/uL (0.0-0.2); #Eosinphils 0.1 thou/uL (0.0-0.7); #Lymphocytes 1.7 thou/uL (1.20-3.40); #Monocytes 0.6 thou/uL (0.11-0.59); #Neutrophils 5.3 thou/uL (1.40-6.50); %Basophils 0.9 % (0.0-1.0); %Eosinophils 1.6 % (0.0-10.0); %Lymphocytes 22.1 % (21.0-51.0); %Monocytes 7.8 % (0.0-10.0); Hematocrit 34.5 % (42.0-52.0); Red Blood Cell (RBC) Count 3.98 mill/uL (4.70-6.10); White Blood Cell (WBC) Count 7.9 thou/uL (4.8-10.8)
[2017-09-14 05:51] LABS: Anion Gap 10 mmol/L (10-20); BUN (Urea Nitrogen) 8 mg/dL (8.9-20.6); Calc. Creatinine Clearance 160 mL/min (70-130); Calcium 9.3 mg/dL (7.8-10.44); Carbon Dioxide 26 mmol/L (22-29); Chloride 102 mmol/L (98-107); Estimated GFR-MDRD Greater than 90
[2017-09-14] MEDS: Morphine 4 MG/ML VIAL SLOW IVP PRN ×4 (08:24→22:50)
[2017-09-14] MEDS: Famotidine 20 MG TAB PO SCH ×2 (08:24→20:15)
[2017-09-14] MEDS: Acetaminophen/Codeine 30-300mg Tablet PO PRN ×2 (10:09→16:40)
--- NOTE | 2017-09-14 12:48 | PDOC.PN ---
- Subjective Encounter Start Date: 09/14/17 Encounter Start Time: 08:40 Pt seen for followup re: psoas abscess. Denies chets pain. Hip pain better. Slept well last night. - Objective Resuscitation Status: Resuscitation Status FULL:Full Resuscitation MAR Reviewed: Yes Vital Signs & Weight: Vital Signs (12 hours) Temp Pulse Resp BP Pulse Ox 09/14/17 12:00 98.1 F 77 14 117/82 95 09/14/17 08:24 97.6 F 101 H 18 09/14/17 08:00 97.6 F 83 16 120/85 95 09/14/17 04:00 97.6 F 101 H 18 130/86 79 L I&O: 09/13/17 09/14/17 09/15/17 06:59 06:59 06:59 Intake Total 2400 1480 Output Total 1930 750 Balance 470 730 Result Diagrams: 09/14/17 04:43 09/14/17 04:43 Additional Labs: Accuchecks 09/14/17 09/13/17 05:29 21:09 POC Glucose 85 101 Phys Exam - Physical Examination Constitutional: NAD HEENT: moist MMs Neck: supple Respiratory: clear to auscultation bilateral Cardiovascular: RRR Gastrointestinal: soft R hip tenderness Neurological: moves all 4 limbs Psychiatric: normal affect Dx/Plan (1) Iliopsoas abscess on right Code(s): K68.12 - PSOAS MUSCLE ABSCESS Status: Acute (2) Tobacco abuse Code(s): Z72.0 - TOBACCO USE Status: Chronic (3) Polysubstance abuse Code(s): F19.10 - OTHER PSYCHOACTIVE SUBSTANCE ABUSE, UNCOMPLICATED Status: Chronic (4) Diarrhea Code(s): R19.7 - DIARRHEA, UNSPECIFIED Status: Resolved - Plan * . Continue IV antibiotics. Ambulate pt. Review of Systems - Review of Systems Cardiovascular: negative: Chest Pain, Palpitations, Orthopnea, Paroxysmal Noc. Dyspnea, Edema, Light Headedness Gastrointestinal: negative: Nausea, Vomiting, Abdominal Pain, Diarrhea, Constipation, Melena, Hematochezia Musculoskeletal: Other (Hip pain) - Medications/Allergies Allergies/Adverse Reactions: Allergies Allergy/AdvReac Type Severity Reaction Status Date / Time No Known Drug Allergies Allergy Verified 09/09/17 00:00 Medications: Current Medications Acetaminophen (Tylenol) 1,000 mg PO Q6H PRN PRN Reason: Headache/Fever or Mild Pain Last Admin: 09/09/17 20:22 Dose: 500 mg Acetaminophen/Codeine Phosphate (Tylenol #3) 1 tab PO Q6H PRN PRN Reason: Pain 1-3 1ST LINE Acetaminophen/Codeine Phosphate (Tylenol #3) 2 tab PO Q6H PRN PRN Reason: Pain 1-3 2ND LINE Last Admin: 09/14/17 10:09 Dose: 2 tab Clonidine (Catapres) 0.1 mg PO Q4H PRN PRN Reason: Systolic BP > 180 Famotidine (Pepcid) 20 mg PO BID [facility] Last Admin: 09/14/17 08:24 Dose: 20 mg Hydralazine HCl (Apresoline) 10 mg SLOW IVP Q4H PRN PRN Reason: Systolic BP > 180 Ceftriaxone Sodium 1 gm/ (Syringe 0.4 ml/ Sterile Water) 10 mls @ 120 mls/hr SLOW IVP 1500 [facility] Last Admin: 09/13/17 15:54 Dose: 10 mls Loperamide HCl (Imodium) 2 mg PO PRN PRN PRN Reason: Diarrhea/Loose Stools Lorazepam (Ativan) 1 mg PO Q4H PRN PRN Reason: Anxiety/Agitation Last Admin: 09/14/17 00:28 Dose: 1 mg Melatonin (Melatonin) 3 mg PO HSPRN PRN PRN Reason: Insomnia Last Admin: 09/13/17 22:17 Dose: 3 mg Morphine Sulfate (Morphine) 4 mg SLOW IVP Q4H PRN PRN Reason: Severe Pain (7-10) Last Admin: 09/14/17 08:24 Dose: 4 mg Morphine Sulfate (Morphine) 2 mg SLOW IVP Q4H PRN PRN Reason: Moderate Pain (4-6) Nicotine (Nicoderm Patch) 14 mg TD Q24HR [facility] Last Admin: 09/13/17 15:33 Dose: Not Given Ondansetron HCl (Zofran Odt) 4 mg PO Q6H PRN PRN Reason: Nausea/Vomiting Ondansetron HCl (Zofran) 4 mg IVP Q6H PRN PRN Reason: Nausea/Vomiting Sodium Chloride (Flush - Normal Saline) 10 ml IVF Q12HR [facility] Last Admin: 09/14/17 08:29 Dose: Not Given Sodium Chloride (Flush - Normal Saline) 10 ml IVF PRN PRN PRN Reason: Saline Flush Tramadol HCl (Ultram) 50 mg PO Q6H PRN PRN Reason: Moderate Pain (4-6) Tramadol HCl (Ultram) 100 mg PO Q6H PRN PRN Reason: Pain 7-10 Last Admin: 09/12/17 20:59 Dose: 100 mg
[2017-09-14] MEDS: cefTRIAXone\\ROCEPHIN 1 GM, Syringe 0.4 ML in Sterile Water 9.6 ML SLOW IVP SCH (15:12)
[2017-09-14] MEDS: Nicotine 14 MG PATCH TD SCH (15:12)
[2017-09-14] MEDS: traMADol HCl 50 MG TAB PO PRN ×2 (15:13→21:45)
[2017-09-14] MEDS: Melatonin 3 MG TAB PO PRN (21:45)
[2017-09-15] MEDS: Morphine 4 MG/ML VIAL SLOW IVP PRN ×5 (03:28→23:13)
[2017-09-15] MEDS: Acetaminophen/Codeine 30-300mg Tablet PO PRN ×3 (05:16→17:42)
[2017-09-15] MEDS ORDERED: Acetaminophen 325 MG TAB PO PRN (08:19)
[2017-09-15] MEDS ORDERED: Mag-Al 1200 mg/1200 mg/30 ML UDCUP PO PRN (08:19)
[2017-09-15] MEDS ORDERED: Loratadine 10 MG TAB PO PRN (08:19)
[2017-09-15] MEDS ORDERED: Eucerin (Mineral Oil/Petrolatum,White) 30 gm Jar TOP PRN (08:19)
[2017-09-15] MEDS ORDERED: Diabetic Tussin 200 MG/10 ML UDCUP PO PRN (08:19)
[2017-09-15] MEDS ORDERED: Senokot 8.6 MG TAB PO PRN (08:19)
[2017-09-15] MEDS ORDERED: Sodium Chloride 0.65% Nasal 44 ML BOT EA NARE PRN (08:19)
[2017-09-15] MEDS ORDERED: Milk Of Magnesia 30 ML UDCUP PO PRN (08:19)
[2017-09-15] MEDS ORDERED: Chloraseptic Spray 180 ml Bottle PO PRN (08:19)
[2017-09-15 09:02] LABS: #Basophils 0.1 thou/uL (0.0-0.2); #Eosinphils 0.1 thou/uL (0.0-0.7); #Lymphocytes 1.5 thou/uL (1.20-3.40); #Monocytes 0.6 thou/uL (0.11-0.59); #Neutrophils 4.4 thou/uL (1.40-6.50); %Basophils 0.8 % (0.0-1.0); %Eosinophils 1.7 % (0.0-10.0); %Lymphocytes 22.6 % (21.0-51.0); %Monocytes 8.9 % (0.0-10.0); Hematocrit 34.5 % (42.0-52.0); Mean Platelet Volume 5.8 fL (7.4-10.4); Red Blood Cell (RBC) Count 3.97 mill/uL (4.70-6.10); White Blood Cell (WBC) Count 6.7 thou/uL (4.8-10.8)
[2017-09-15 09:24] LABS: Alkaline Phosphatase 57 U/L (40-150); Anion Gap 9 mmol/L (10-20); Bilirubin, Total 0.2 mg/dL (0.2-1.2); Calcium 9.2 mg/dL (7.8-10.44); Carbon Dioxide 29 mmol/L (22-29); Chloride 103 mmol/L (98-107); Globulin 4.4 g/dL (2.4-3.5); Protein, Total 6.8 g/dL (6.0-8.3)
[2017-09-15 09:25] LABS: ALT (SGPT) 25 U/L (8-55); AST (SGOT) 20 U/L (5-34); BUN (Urea Nitrogen) 12 mg/dL (8.9-20.6); Calc. Creatinine Clearance 150 mL/min (70-130); Estimated GFR-MDRD Greater than 90
[2017-09-15] MEDS: Famotidine 20 MG TAB PO SCH ×2 (09:33→21:28)
--- NOTE | 2017-09-15 12:06 | PDOC.PN ---
- Subjective Encounter Start Date: 09/15/17 Encounter Start Time: 08:00 -: old records requested/rev Patient seen and examined. No new complaints. No overnight events - Objective Resuscitation Status: Resuscitation Status FULL:Full Resuscitation MAR Reviewed: Yes Vital Signs & Weight: Vital Signs (12 hours) Temp Pulse Resp BP Pulse Ox 09/15/17 08:00 98.3 F 71 16 114/78 96 09/15/17 03:34 98.1 F 78 18 127/75 96 I&O: 09/14/17 09/15/17 09/16/17 06:59 06:59 06:59 Intake Total 1480 3225 Output Total 750 2460 Balance 730 765 Result Diagrams: 09/15/17 08:37 09/15/17 08:37 Radiology Reviewed by me: Yes Phys Exam - Physical Examination Constitutional: NAD HEENT: PERRLA, moist MMs, sclera anicteric Neck: no JVD, supple Respiratory: no wheezing, no rales, no rhonchi Cardiovascular: RRR, no significant murmur, no rub Gastrointestinal: soft, non-tender, no distention, positive bowel sounds Musculoskeletal: no edema, pulses present Neurological: non-focal, normal sensation Psychiatric: normal affect, A&O x 3 Skin: no rash, normal turgor Dx/Plan (1) Sepsis Code(s): A41.9 - SEPSIS, UNSPECIFIED ORGANISM Status: Acute (2) Iliopsoas abscess on right Code(s): K68.12 - PSOAS MUSCLE ABSCESS Status: Acute (3) Abnormal LFTs Code(s): R79.89 - OTHER SPECIFIED ABNORMAL FINDINGS OF BLOOD CHEMISTRY Status : Acute (4) Methamphetamine abuse Code(s): F15.10 - OTHER STIMULANT ABUSE, UNCOMPLICATED Status: Chronic (5) Polysubstance abuse Code(s): F19.10 - OTHER PSYCHOACTIVE SUBSTANCE ABUSE, UNCOMPLICATED Status: Chronic (6) Tobacco abuse Code(s): Z72.0 - TOBACCO USE Status: Chronic (7) Diarrhea Code(s): R19.7 - DIARRHEA, UNSPECIFIED Status: Resolved - Plan cont current plan of care, continue antibiotics * continue IV rocephin * wound care * dr sharma to decide about antibiotics on discharge, IV vs oral and duration * pain control * pt needs more ambulation with PT * social work for discharge planning * medication reviewed as below * symptomatic treatment. * counselled to avoid polysubstance Review of Systems - Review of Systems ENT: negative: Ear Pain, Ear Discharge, Nose Pain, Nose Discharge, Nose Congestion, Mouth Pain, Mouth Swelling, Throat Pain, Throat Swelling, Other Respiratory: negative: Cough, Dry, Shortness of Breath, Hemoptysis, SOB with Excertion, Pleuritic Pain, Sputum, Wheezing Cardiovascular: negative: chest pain, palpitations, orthopnea, paroxysmal nocturnal dyspnea, edema, light headedness, other Gastrointestinal: negative: Nausea, Vomiting, Abdominal Pain, Diarrhea, Constipation, Melena, Hematochezia, Other Genitourinary: negative: Dysuria, Frequency, Incontinence, Hematuria, Retention , Other Musculoskeletal: Leg Pain. negative: Neck Pain, Shoulder Pain, Arm Pain, Back Pain, Hand Pain, Foot Pain, Other Skin: negative: Rash, Lesions, Parker, Bruising, Other - Medications/Allergies Allergies/Adverse Reactions: Allergies Allergy/AdvReac Type Severity Reaction Status Date / Time No Known Drug Allergies Allergy Verified 09/09/17 00:00 Medications: Current Medications Acetaminophen (Tylenol) 650 mg PO Q4H PRN PRN Reason: Headache/Fever or Mild Pain Acetaminophen/Codeine Phosphate (Tylenol #3) 1 tab PO Q6H PRN PRN Reason: Pain 1-3 1ST LINE Acetaminophen/Codeine Phosphate (Tylenol #3) 2 tab PO Q6H PRN PRN Reason: Pain 1-3 2ND LINE Last Admin: 09/15/17 11:34 Dose: 2 tab Hydrocodone Bitart/Acetaminophen ([place] 5/325) 1 tab PO Q4H PRN PRN Reason: Moderate Pain (4-6) Al Hydroxide/Mg Hydroxide (Maalox) 15 ml PO Q4H PRN PRN Reason: Heartburn or Indigestion Clonidine (Catapres) 0.1 mg PO Q4H PRN PRN Reason: Systolic BP > 180 Famotidine (Pepcid) 20 mg PO BID [facility] Last Admin: 09/15/17 09:33 Dose: 20 mg Guaifenesin (Robitussin Sf) 200 mg PO Q4H PRN PRN Reason: Cough Hydralazine HCl (Apresoline) 10 mg SLOW IVP Q4H PRN PRN Reason: Systolic BP > 180 Ceftriaxone Sodium 1 gm/ (Syringe 0.4 ml/ Sterile Water) 10 mls @ 120 mls/hr SLOW IVP 1500 [facility] Last Admin: 09/14/17 15:12 Dose: 10 mls Loperamide HCl (Imodium) 2 mg PO PRN PRN PRN Reason: Diarrhea/Loose Stools Loratadine (Claritin) 10 mg PO DAILYPRN PRN PRN Reason: Sinus Symptoms Lorazepam (Ativan) 1 mg PO Q4H PRN PRN Reason: Anxiety/Agitation Last Admin: 09/14/17 00:28 Dose: 1 mg Magnesium Hydroxide (Milk Of Magnesium) 30 ml PO DAILYPRN PRN PRN Reason: Constipation Melatonin (Melatonin) 3 mg PO HSPRN PRN PRN Reason: Insomnia Last Admin: 09/14/17 21:45 Dose: 3 mg Mineral Oil/White Petrolatum (Eucerin Cream) 0 gm TOP BIDPRN PRN PRN Reason: Dry Skin Morphine Sulfate (Morphine) 4 mg SLOW IVP Q4H PRN PRN Reason: Severe Pain (7-10) Last Admin: 09/15/17 09:34 Dose: 4 mg Morphine Sulfate (Morphine) 2 mg SLOW IVP Q4H PRN PRN Reason: Moderate Pain (4-6) Nicotine (Nicoderm Patch) 14 mg TD Q24HR [facility] Last Admin: 09/14/17 15:12 Dose: Not Given Ondansetron HCl (Zofran Odt) 4 mg PO Q6H PRN PRN Reason: Nausea/Vomiting Ondansetron HCl (Zofran) 4 mg IVP Q6H PRN PRN Reason: Nausea/Vomiting Phenol (Chloraseptic [place] 180 Ml Bot) 0 ml PO PRN PRN PRN Reason: Sore Throat Senna (Senokot) 2 tab PO HSPRN PRN PRN Reason: Constipation Sodium Chloride (Flush - Normal Saline) 10 ml IVF Q12HR [facility] Last Admin: 09/15/17 09:33 Dose: 10 ml Sodium Chloride (Flush - Normal Saline) 10 ml IVF PRN PRN PRN Reason: Saline Flush Sodium Chloride ([place] Nasal [place] 0.65%) 0 ml EA NARE QIDPRN PRN PRN Reason: Nasal Congestion Temazepam (Restoril) 15 mg PO HSPRN PRN PRN Reason: Insomnia Tramadol HCl (Ultram) 50 mg PO Q6H PRN PRN Reason: Moderate Pain (4-6) Tramadol HCl (Ultram) 100 mg PO Q6H PRN PRN Reason: Pain 7-10 Last Admin: 09/14/17 21:45 Dose: 100 mg
[2017-09-15] MEDS: cefTRIAXone\\ROCEPHIN 1 GM, Syringe 0.4 ML in Sterile Water 9.6 ML SLOW IVP SCH (15:13)
[2017-09-15] MEDS: Nicotine 14 MG PATCH TD SCH (15:20)
[2017-09-15] MEDS: traMADol HCl 50 MG TAB PO PRN ×2 (16:09→22:29)
[2017-09-15] MEDS ORDERED: cefTRIAXone\\ROCEPHIN 1 GM, Syringe 0.4 ML in Sterile Water 9.6 ML SLOW IVP SCH (18:30)
[2017-09-16] MEDS: traMADol HCl 50 MG TAB PO PRN (04:33)
[2017-09-16] MEDS: Famotidine 20 MG TAB PO SCH ×2 (08:46→20:24)
[2017-09-16] MEDS: Morphine 4 MG/ML VIAL SLOW IVP PRN ×4 (08:46→22:40)
--- NOTE | 2017-09-16 11:52 | PDOC.PN ---
- Subjective Encounter Start Date: 09/16/17 Encounter Start Time: 08:00 pt has lot of pain in right leg, he has drain in place, no fever - Objective Resuscitation Status: Resuscitation Status FULL:Full Resuscitation MAR Reviewed: Yes Vital Signs & Weight: Vital Signs (12 hours) Temp Pulse Resp BP BP Pulse Ox 09/16/17 08:00 97.6 F 75 16 135/78 94 L 09/16/17 05:02 98.0 F 70 16 130/88 96 09/16/17 00:51 98.0 F 81 16 119/75 94 L I&O: 09/15/17 09/16/17 09/17/17 06:59 06:59 06:59 Intake Total 3225 2040 Output Total 2460 870 Balance 765 1170 Result Diagrams: 09/15/17 08:37 09/15/17 08:37 Phys Exam - Physical Examination Constitutional: NAD HEENT: PERRLA, moist MMs, sclera anicteric Neck: no JVD, supple Respiratory: no wheezing, no rales, no rhonchi Cardiovascular: RRR, no significant murmur, no rub Gastrointestinal: soft, non-tender, no distention, positive bowel sounds Musculoskeletal: no edema, pulses present right hip with dressing and drain + Neurological: non-focal, normal sensation, moves all 4 limbs Psychiatric: normal affect, A&O x 3 Skin: no rash, normal turgor Dx/Plan (1) Sepsis Code(s): A41.9 - SEPSIS, UNSPECIFIED ORGANISM Status: Acute (2) Iliopsoas abscess on right Code(s): K68.12 - PSOAS MUSCLE ABSCESS Status: Acute (3) Abnormal LFTs Code(s): R79.89 - OTHER SPECIFIED ABNORMAL FINDINGS OF BLOOD CHEMISTRY Status : Acute (4) Methamphetamine abuse Code(s): F15.10 - OTHER STIMULANT ABUSE, UNCOMPLICATED Status: Chronic (5) Polysubstance abuse Code(s): F19.10 - OTHER PSYCHOACTIVE SUBSTANCE ABUSE, UNCOMPLICATED Status: Chronic (6) Tobacco abuse Code(s): Z72.0 - TOBACCO USE Status: Chronic (7) Diarrhea Code(s): R19.7 - DIARRHEA, UNSPECIFIED Status: Resolved - Plan cont current plan of care, continue antibiotics, PT/OT, renal social worker * continue pain control * start PT/OT * will need IV antibiotics rocephin 2 gm IV daily till Oct 29 * needs PICC line * MRI is pending * medication reviewed as below * symptomatic treatment. Review of Systems - Review of Systems Eyes: negative: Pain, Vision Change, Conjunctivae Inflammation, Eyelid Inflammation, Redness, Other ENT: negative: Ear Pain, Ear Discharge, Nose Pain, Nose Discharge, Nose Congestion, Mouth Pain, Mouth Swelling, Throat Pain, Throat Swelling, Other Respiratory: negative: Cough, Dry, Shortness of Breath, Hemoptysis, SOB with Excertion, Pleuritic Pain, Sputum, Wheezing Cardiovascular: negative: chest pain, palpitations, orthopnea, paroxysmal nocturnal dyspnea, edema, light headedness, other Gastrointestinal: negative: Nausea, Vomiting, Abdominal Pain, Diarrhea, Constipation, Melena, Hematochezia, Other Genitourinary: negative: Dysuria, Frequency, Incontinence, Hematuria, Retention , Other Musculoskeletal: Leg Pain. negative: Neck Pain, Shoulder Pain, Arm Pain, Back Pain, Hand Pain, Foot Pain, Other Skin: negative: Rash, Lesions, Parker, Bruising, Other - Medications/Allergies Allergies/Adverse Reactions: Allergies Allergy/AdvReac Type Severity Reaction Status Date / Time No Known Drug Allergies Allergy Verified 09/09/17 00:00 Medications: Current Medications Acetaminophen (Tylenol) 650 mg PO Q4H PRN PRN Reason: Headache/Fever or Mild Pain Acetaminophen/Codeine Phosphate (Tylenol #3) 1 tab PO Q6H PRN PRN Reason: Pain 1-3 1ST LINE Acetaminophen/Codeine Phosphate (Tylenol #3) 2 tab PO Q6H PRN PRN Reason: Pain 1-3 2ND LINE Last Admin: 09/15/17 17:42 Dose: 2 tab Hydrocodone Bitart/Acetaminophen ([place] 5/325) 1 tab PO Q4H PRN PRN Reason: Moderate Pain (4-6) Al Hydroxide/Mg Hydroxide (Maalox) 15 ml PO Q4H PRN PRN Reason: Heartburn or Indigestion Clonidine (Catapres) 0.1 mg PO Q4H PRN PRN Reason: Systolic BP > 180 Famotidine (Pepcid) 20 mg PO BID HERMAN Last Admin: 09/16/17 08:46 Dose: 20 mg Guaifenesin (Robitussin Sf) 200 mg PO Q4H PRN PRN Reason: Cough Hydralazine HCl (Apresoline) 10 mg SLOW IVP Q4H PRN PRN Reason: Systolic BP > 180 Ceftriaxone Sodium 2 gm/ (Sodium Chloride) 100 mls @ 200 mls/hr IVPB 1500 HERMAN Loperamide HCl (Imodium) 2 mg PO PRN PRN PRN Reason: Diarrhea/Loose Stools Loratadine (Claritin) 10 mg PO DAILYPRN PRN PRN Reason: Sinus Symptoms Lorazepam (Ativan) 1 mg PO Q4H PRN PRN Reason: Anxiety/Agitation Last Admin: 09/14/17 00:28 Dose: 1 mg Magnesium Hydroxide (Milk Of Magnesium) 30 ml PO DAILYPRN PRN PRN Reason: Constipation Melatonin (Melatonin) 3 mg PO HSPRN PRN PRN Reason: Insomnia Last Admin: 09/14/17 21:45 Dose: 3 mg Mineral Oil/White Petrolatum (Eucerin Cream) 0 gm TOP BIDPRN PRN PRN Reason: Dry Skin Morphine Sulfate (Morphine) 4 mg SLOW IVP Q4H PRN PRN Reason: Severe Pain (7-10) Last Admin: 09/16/17 08:46 Dose: 4 mg Morphine Sulfate (Morphine) 2 mg SLOW IVP Q4H PRN PRN Reason: Moderate Pain (4-6) Nicotine (Nicoderm Patch) 14 mg TD Q24HR COUNTS INCLUDE 234 BEDS AT THE [facility] Last Admin: 09/15/17 15:20 Dose: Not Given Ondansetron HCl (Zofran Odt) 4 mg PO Q6H PRN PRN Reason: Nausea/Vomiting Ondansetron HCl (Zofran) 4 mg IVP Q6H PRN PRN Reason: Nausea/Vomiting Phenol (Chloraseptic [place] 180 Ml Bot) 0 ml PO PRN PRN PRN Reason: Sore Throat Senna (Senokot) 2 tab PO HSPRN PRN PRN Reason: Constipation Sodium Chloride (Flush - Normal Saline) 10 ml IVF Q12HR COUNTS INCLUDE 234 BEDS AT THE [facility] Last Admin: 09/16/17 08:47 Dose: 10 ml Sodium Chloride (Flush - Normal Saline) 10 ml IVF PRN PRN PRN Reason: Saline Flush Last Admin: 09/15/17 18:25 Dose: 10 ml Sodium Chloride ([place] Nasal [place] 0.65%) 0 ml EA NARE QIDPRN PRN PRN Reason: Nasal Congestion Temazepam (Restoril) 15 mg PO HSPRN PRN PRN Reason: Insomnia Tramadol HCl (Ultram) 50 mg PO Q6H PRN PRN Reason: Moderate Pain (4-6) Tramadol HCl (Ultram) 100 mg PO Q6H PRN PRN Reason: Pain 7-10 Last Admin: 09/16/17 04:33 Dose: 100 mg
[2017-09-16] MEDS ORDERED: ISOVUE-370 76%-LOCM 1 ML ONE (12:24)
--- NOTE | 2017-09-16 14:31 | PRG ---
DATE OF SERVICE: 09/16/2017 SUBJECTIVE: Pain is steadily improving. He was able to walk to the restroom today on his own withou t any assistance. No headaches. No visual symptoms. No sore throat, odynophagia or dysphagia. No cough or sputum production. No chest pain. No abdominal pain or diarrhea. OBJECTIVE: VITAL SIGNS: Have normalized. He has not had a fever. GENERAL: He is awake, alert and oriented. LUNGS: Clear. HEART: S1 and S2, regular rate. ABDOMEN: Soft and not distended. LABORATORY DATA: Right groin area with a drainage catheter. Sodium 137 and creatinine 0.78. Liver profile normal. CRP down from 18-4.97. White cell count 6.7, hemoglobin 11 and platelets 513. Micr obiology with Staph aureus from the hip abscess, which is methicillin susceptible. The blood culture s with propionibacterium acne likely a contaminant. An MRI has been ordered, but patient could not t olerate. ASSESSMENT AND DISCUSSION: IV methamphetamine use and heroin use. Right hip methicillin-sensitive susceptible Staphylococcus aureus infection with extension at the psoas muscle and withdrawal syndrom e. Patient steadily improving inflammatory process. Continues with the drainage catheter and we zaina l repeat the CT instead of an MRI. I would only need an MRI to follow up the area of collection and see if we can remove the drainage catheter. The CT will suffice. Continue Rocephin. There is clear -cut improvement in the inflammatory markers. The end date of therapy is 10/29 and patient will have to be treated in the outpatient setting. He is getting close to discharge planning.
--- NOTE | 2017-09-16 15:25 | CT ---
CT OF PELVIS PERFORMED WITH IV CONTRAST ENHANCEMENT: Date: 09/16/17 HISTORY: Follow-up of iliopsoas muscle abscess. COMPARISON: 09/08/17 and 09/09/17 studies. FINDINGS: Today's examination only included the pelvis and the upper portion of the psoas component of this abs cess collection is not well visualized, although the portion seen is substantially decreased in size. The portion in the right of the right iliac muscle is also significantly decreased, and the collecti on which is in the region of the iliopsoas bursa is diminished. There is still a persistent collectio n in the region of the adductor muscles on the right, and there is joint effusion related to the righ t hip. There are severe arthritic changes of the hip joint. Subchondral cystic changes noted. I am no t certain of the primary source of the abscess. It is potentially arising from the hip region. Bilateral inguinal hernias, right larger than left, are also again noted. IMPRESSION: Interval reduction in the size of the visualized portion of the right psoas abscess. Significant redu ction in size of the right iliacus abscess. The catheter remains in place adjacent to the iliac crest . The fluid seen in the iliopsoas bursa is also decreased. There is still persistent fluid within the right hip joint with severe arthritic changes of the right hip which could be the sequelae of a sept ic arthritis and may be the original source of this infection. The abscess collection in the region o f the adductor muscles on the right is stable. POS: [facility]
[2017-09-16] MEDS: Nicotine 14 MG PATCH TD SCH (15:34)
[2017-09-16] MEDS: cefTRIAXone\\ROCEPHIN 2 GM in Sodium Chloride 0.9% 100 ML IVPB SCH (15:35)
[2017-09-16] MEDS: Acetaminophen/Codeine 30-300mg Tablet PO PRN (20:23)
[2017-09-16] MEDS: Melatonin 3 MG TAB PO PRN (23:00)
[2017-09-17] MEDS: Acetaminophen/Codeine 30-300mg Tablet PO PRN ×4 (01:30→22:10)
[2017-09-17] MEDS: Morphine 4 MG/ML VIAL SLOW IVP PRN ×4 (02:47→17:24)
[2017-09-17] MEDS: traMADol HCl 50 MG TAB PO PRN ×3 (03:58→18:45)
[2017-09-17] MEDS: Famotidine 20 MG TAB PO SCH ×2 (08:09→21:57)
--- NOTE | 2017-09-17 10:40 | PDOC.PN ---
- Subjective Encounter Start Date: 09/17/17 Encounter Start Time: 07:45 Patient seen and examined. No new complaints. No overnight events - Objective Resuscitation Status: Resuscitation Status FULL:Full Resuscitation MAR Reviewed: Yes Vital Signs & Weight: Vital Signs (12 hours) Temp Pulse Resp BP BP Pulse Ox 09/17/17 08:10 98.0 F 69 18 96 09/17/17 07:58 98.0 F 69 18 117/76 96 09/17/17 05:18 98.0 F 70 16 113/74 94 L 09/17/17 00:14 97.7 F 76 16 127/82 94 L Weight Admit Weight 199 lb 15.344 oz Weight 199 lb 15.344 oz I&O: 09/16/17 09/17/17 09/18/17 06:59 06:59 06:59 Intake Total 2040 600 500 Output Total 870 1090 650 Balance 1170 -490 -150 Result Diagrams: 09/15/17 08:37 09/15/17 08:37 Phys Exam - Physical Examination Constitutional: NAD HEENT: PERRLA, moist MMs, sclera anicteric Neck: no JVD, supple Respiratory: no wheezing, no rales, no rhonchi Cardiovascular: RRR, no significant murmur, no rub Gastrointestinal: soft, non-tender, no distention, positive bowel sounds right hip dressing with drain+ Musculoskeletal: no edema, pulses present Neurological: non-focal, normal sensation Lymphatic: no nodes Psychiatric: normal affect, A&O x 3 Skin: no rash, normal turgor Dx/Plan (1) Sepsis Code(s): A41.9 - SEPSIS, UNSPECIFIED ORGANISM Status: Acute (2) Iliopsoas abscess on right Code(s): K68.12 - PSOAS MUSCLE ABSCESS Status: Acute (3) Abnormal LFTs Code(s): R79.89 - OTHER SPECIFIED ABNORMAL FINDINGS OF BLOOD CHEMISTRY Status : Acute (4) Methamphetamine abuse Code(s): F15.10 - OTHER STIMULANT ABUSE, UNCOMPLICATED Status: Chronic (5) Polysubstance abuse Code(s): F19.10 - OTHER PSYCHOACTIVE SUBSTANCE ABUSE, UNCOMPLICATED Status: Chronic (6) Tobacco abuse Code(s): Z72.0 - TOBACCO USE Status: Chronic (7) Diarrhea Code(s): R19.7 - DIARRHEA, UNSPECIFIED Status: Resolved - Plan cont current plan of care, plan discussed w/ family, continue antibiotics, high school social studies tutor * still drain has lot of amount, so will need drain in place * discussed with ortho * pt needs Iv antibiotic rocephin 2 gm daily till october 29, 2017 * medication reviewed as below * symptomatic treatment * social work for iv antibiotics. Review of Systems - Review of Systems ENT: negative: Ear Pain, Ear Discharge, Nose Pain, Nose Discharge, Nose Congestion, Mouth Pain, Mouth Swelling, Throat Pain, Throat Swelling, Other Respiratory: negative: Cough, Dry, Shortness of Breath, Hemoptysis, SOB with Excertion, Pleuritic Pain, Sputum, Wheezing Cardiovascular: negative: chest pain, palpitations, orthopnea, paroxysmal nocturnal dyspnea, edema, light headedness, other Gastrointestinal: negative: Nausea, Vomiting, Abdominal Pain, Diarrhea, Constipation, Melena, Hematochezia, Other Genitourinary: negative: Dysuria, Frequency, Incontinence, Hematuria, Retention , Other Musculoskeletal: Leg Pain. negative: Neck Pain, Shoulder Pain, Arm Pain, Back Pain, Hand Pain, Foot Pain, Other Skin: negative: Rash, Lesions, Parker, Bruising, Other - Medications/Allergies Allergies/Adverse Reactions: Allergies Allergy/AdvReac Type Severity Reaction Status Date / Time No Known Drug Allergies Allergy Verified 09/09/17 00:00 Medications: Current Medications Acetaminophen (Tylenol) 650 mg PO Q4H PRN PRN Reason: Headache/Fever or Mild Pain Acetaminophen/Codeine Phosphate (Tylenol #3) 1 tab PO Q6H PRN PRN Reason: Pain 1-3 1ST LINE Acetaminophen/Codeine Phosphate (Tylenol #3) 2 tab PO Q6H PRN PRN Reason: Pain 1-3 2ND LINE Last Admin: 09/17/17 08:09 Dose: 2 tab Hydrocodone Bitart/Acetaminophen ([place] 5/325) 1 tab PO Q4H PRN PRN Reason: Moderate Pain (4-6) Al Hydroxide/Mg Hydroxide (Maalox) 15 ml PO Q4H PRN PRN Reason: Heartburn or Indigestion Clonidine (Catapres) 0.1 mg PO Q4H PRN PRN Reason: Systolic BP > 180 Famotidine (Pepcid) 20 mg PO BID HERMAN Last Admin: 09/17/17 08:09 Dose: 20 mg Guaifenesin (Robitussin Sf) 200 mg PO Q4H PRN PRN Reason: Cough Hydralazine HCl (Apresoline) 10 mg SLOW IVP Q4H PRN PRN Reason: Systolic BP > 180 Ceftriaxone Sodium 2 gm/ (Sodium Chloride) 100 mls @ 200 mls/hr IVPB 1500 HERMAN Last Admin: 09/16/17 15:35 Dose: 100 mls Loperamide HCl (Imodium) 2 mg PO PRN PRN PRN Reason: Diarrhea/Loose Stools Loratadine (Claritin) 10 mg PO DAILYPRN PRN PRN Reason: Sinus Symptoms Lorazepam (Ativan) 1 mg PO Q4H PRN PRN Reason: Anxiety/Agitation Last Admin: 09/14/17 00:28 Dose: 1 mg Magnesium Hydroxide (Milk Of Magnesium) 30 ml PO DAILYPRN PRN PRN Reason: Constipation Melatonin (Melatonin) 3 mg PO HSPRN PRN PRN Reason: Insomnia Last Admin: 09/16/17 23:00 Dose: 3 mg Mineral Oil/White Petrolatum (Eucerin Cream) 0 gm TOP BIDPRN PRN PRN Reason: Dry Skin Morphine Sulfate (Morphine) 4 mg SLOW IVP Q4H PRN PRN Reason: Severe Pain (7-10) Last Admin: 09/17/17 06:50 Dose: 4 mg Morphine Sulfate (Morphine) 2 mg SLOW IVP Q4H PRN PRN Reason: Moderate Pain (4-6) Nicotine (Nicoderm Patch) 14 mg TD Q24HR [facility] Last Admin: 09/16/17 15:34 Dose: Not Given Ondansetron HCl (Zofran Odt) 4 mg PO Q6H PRN PRN Reason: Nausea/Vomiting Ondansetron HCl (Zofran) 4 mg IVP Q6H PRN PRN Reason: Nausea/Vomiting Phenol (Chloraseptic [place] 180 Ml Bot) 0 ml PO PRN PRN PRN Reason: Sore Throat Senna (Senokot) 2 tab PO HSPRN PRN PRN Reason: Constipation Sodium Chloride (Flush - Normal Saline) 10 ml IVF Q12HR [facility]MAN Last Admin: 09/17/17 09:04 Dose: Not Given Sodium Chloride (Flush - Normal Saline) 10 ml IVF PRN PRN PRN Reason: Saline Flush Last Admin: 09/15/17 18:25 Dose: 10 ml Sodium Chloride ([place] Nasal [place] 0.65%) 0 ml EA NARE QIDPRN PRN PRN Reason: Nasal Congestion Temazepam (Restoril) 15 mg PO HSPRN PRN PRN Reason: Insomnia Tramadol HCl (Ultram) 50 mg PO Q6H PRN PRN Reason: Moderate Pain (4-6) Tramadol HCl (Ultram) 100 mg PO Q6H PRN PRN Reason: Pain 7-10 Last Admin: 09/17/17 03:58 Dose: 100 mg
[2017-09-17] MEDS: cefTRIAXone\\ROCEPHIN 2 GM in Sodium Chloride 0.9% 100 ML IVPB SCH (15:34)
[2017-09-17] MEDS: Nicotine 14 MG PATCH TD SCH (15:38)
[2017-09-17] MEDS: Temazepam 15 MG CAP PO PRN (22:11)
[2017-09-18] MEDS: Morphine 4 MG/ML VIAL SLOW IVP PRN ×5 (02:07→22:55)
[2017-09-18] MEDS: Acetaminophen/Codeine 30-300mg Tablet PO PRN ×3 (05:43→21:15)
[2017-09-18] MEDS: Famotidine 20 MG TAB PO SCH ×2 (09:04→21:15)
[2017-09-18] MEDS: HYDROcodone/Acetaminophen 5/325 mg Tablet PO PRN ×2 (09:11→16:21)
--- NOTE | 2017-09-18 11:30 | PDOC.PN ---
- Subjective Encounter Start Date: 09/18/17 Encounter Start Time: 07:45 Patient seen and examined. No new complaints. No overnight events pt has lot of pain with walking - Objective Resuscitation Status: Resuscitation Status FULL:Full Resuscitation MAR Reviewed: Yes Vital Signs & Weight: Vital Signs (12 hours) Temp Pulse Resp BP Pulse Ox 09/18/17 09:19 72 16 129/85 95 09/18/17 00:00 98.1 F 79 16 136/84 96 Weight Admit Weight 199 lb 15.344 oz Weight 199 lb 15.344 oz I&O: 09/17/17 09/18/17 09/19/17 06:59 06:59 06:59 Intake Total 600 3030 Output Total 1090 2630 Balance -490 400 Result Diagrams: 09/15/17 08:37 09/15/17 08:37 Phys Exam - Physical Examination Constitutional: NAD HEENT: PERRLA, moist MMs, sclera anicteric Neck: no nodes, no JVD, supple Respiratory: no wheezing, no rales, no rhonchi Cardiovascular: RRR, no significant murmur, no rub Gastrointestinal: soft, non-tender, no distention, positive bowel sounds Musculoskeletal: no edema, pulses present drain in place, dressing in place Neurological: non-focal, normal sensation, moves all 4 limbs Psychiatric: normal affect, A&O x 3 Skin: no rash, normal turgor Dx/Plan (1) Sepsis Code(s): A41.9 - SEPSIS, UNSPECIFIED ORGANISM Status: Acute (2) Iliopsoas abscess on right Code(s): K68.12 - PSOAS MUSCLE ABSCESS Status: Acute (3) Abnormal LFTs Code(s): R79.89 - OTHER SPECIFIED ABNORMAL FINDINGS OF BLOOD CHEMISTRY Status : Acute (4) Methamphetamine abuse Code(s): F15.10 - OTHER STIMULANT ABUSE, UNCOMPLICATED Status: Chronic (5) Polysubstance abuse Code(s): F19.10 - OTHER PSYCHOACTIVE SUBSTANCE ABUSE, UNCOMPLICATED Status: Chronic (6) Tobacco abuse Code(s): Z72.0 - TOBACCO USE Status: Chronic (7) Diarrhea Code(s): R19.7 - DIARRHEA, UNSPECIFIED Status: Resolved - Plan cont current plan of care, continue antibiotics, social worker palliative care * continue pain control * continue rocephin * social work to arrange outpt iv antibiotics * once pt ambulate well and pain controlled with oral meds, then will consider discharge * continue wound care and drain care * medication reviewed as below * symptomatic treatment. Review of Systems - Review of Systems ENT: negative: Ear Pain, Ear Discharge, Nose Pain, Nose Discharge, Nose Congestion, Mouth Pain, Mouth Swelling, Throat Pain, Throat Swelling, Other Respiratory: negative: Cough, Dry, Shortness of Breath, Hemoptysis, SOB with Excertion, Pleuritic Pain, Sputum, Wheezing Cardiovascular: negative: chest pain, palpitations, orthopnea, paroxysmal nocturnal dyspnea, edema, light headedness, other Gastrointestinal: negative: Nausea, Vomiting, Abdominal Pain, Diarrhea, Constipation, Melena, Hematochezia, Other Genitourinary: negative: Dysuria, Frequency, Incontinence, Hematuria, Retention , Other Musculoskeletal: negative: Neck Pain, Shoulder Pain, Arm Pain, Back Pain, Hand Pain, Leg Pain, Foot Pain, Other Skin: negative: Rash, Lesions, Parker, Bruising, Other - Medications/Allergies Allergies/Adverse Reactions: Allergies Allergy/AdvReac Type Severity Reaction Status Date / Time No Known Drug Allergies Allergy Verified 09/09/17 00:00 Medications: Current Medications Acetaminophen (Tylenol) 650 mg PO Q4H PRN PRN Reason: Headache/Fever or Mild Pain Acetaminophen/Codeine Phosphate (Tylenol #3) 1 tab PO Q6H PRN PRN Reason: Pain 1-3 1ST LINE Acetaminophen/Codeine Phosphate (Tylenol #3) 2 tab PO Q6H PRN PRN Reason: Pain 1-3 2ND LINE Last Admin: 09/18/17 05:43 Dose: 2 tab Hydrocodone Bitart/Acetaminophen ([place] 5/325) 1 tab PO Q4H PRN PRN Reason: Moderate Pain (4-6) Last Admin: 09/18/17 09:11 Dose: 1 tab Al Hydroxide/Mg Hydroxide (Maalox) 15 ml PO Q4H PRN PRN Reason: Heartburn or Indigestion Clonidine (Catapres) 0.1 mg PO Q4H PRN PRN Reason: Systolic BP > 180 Famotidine (Pepcid) 20 mg PO BID HERMAN Last Admin: 09/18/17 09:04 Dose: 20 mg Guaifenesin (Robitussin Sf) 200 mg PO Q4H PRN PRN Reason: Cough Hydralazine HCl (Apresoline) 10 mg SLOW IVP Q4H PRN PRN Reason: Systolic BP > 180 Ceftriaxone Sodium 2 gm/ (Sodium Chloride) 100 mls @ 200 mls/hr IVPB 1500 HERMAN Last Admin: 09/17/17 15:34 Dose: 100 mls Loperamide HCl (Imodium) 2 mg PO PRN PRN PRN Reason: Diarrhea/Loose Stools Loratadine (Claritin) 10 mg PO DAILYPRN PRN PRN Reason: Sinus Symptoms Lorazepam (Ativan) 1 mg PO Q4H PRN PRN Reason: Anxiety/Agitation Last Admin: 09/14/17 00:28 Dose: 1 mg Magnesium Hydroxide (Milk Of Magnesium) 30 ml PO DAILYPRN PRN PRN Reason: Constipation Melatonin (Melatonin) 3 mg PO HSPRN PRN PRN Reason: Insomnia Last Admin: 09/16/17 23:00 Dose: 3 mg Mineral Oil/White Petrolatum (Eucerin Cream) 0 gm TOP BIDPRN PRN PRN Reason: Dry Skin Morphine Sulfate (Morphine) 4 mg SLOW IVP Q4H PRN PRN Reason: Severe Pain (7-10) Last Admin: 09/18/17 06:55 Dose: 4 mg Morphine Sulfate (Morphine) 2 mg SLOW IVP Q4H PRN PRN Reason: Moderate Pain (4-6) Nicotine (Nicoderm Patch) 14 mg TD Q24HR [facility] Last Admin: 09/17/17 15:38 Dose: Not Given Ondansetron HCl (Zofran Odt) 4 mg PO Q6H PRN PRN Reason: Nausea/Vomiting Ondansetron HCl (Zofran) 4 mg IVP Q6H PRN PRN Reason: Nausea/Vomiting Phenol (Chloraseptic [place] 180 Ml Bot) 0 ml PO PRN PRN PRN Reason: Sore Throat Senna (Senokot) 2 tab PO HSPRN PRN PRN Reason: Constipation Sodium Chloride (Flush - Normal Saline) 10 ml IVF Q12HR [facility] Last Admin: 09/18/17 09:05 Dose: 10 ml Sodium Chloride (Flush - Normal Saline) 10 ml IVF PRN PRN PRN Reason: Saline Flush Last Admin: 09/18/17 02:07 Dose: 10 ml Sodium Chloride ([place] Nasal [place] 0.65%) 0 ml EA NARE QIDPRN PRN PRN Reason: Nasal Congestion Temazepam (Restoril) 15 mg PO HSPRN PRN PRN Reason: Insomnia Last Admin: 09/17/17 22:11 Dose: 15 mg Tramadol HCl (Ultram) 50 mg PO Q6H PRN PRN Reason: Moderate Pain (4-6) Tramadol HCl (Ultram) 100 mg PO Q6H PRN PRN Reason: Pain 7-10 Last Admin: 09/17/17 18:45 Dose: 100 mg
[2017-09-18] MEDS: cefTRIAXone\\ROCEPHIN 2 GM in Sodium Chloride 0.9% 100 ML IVPB SCH (14:56)
[2017-09-18] MEDS: Nicotine 14 MG PATCH TD SCH (14:56)
[2017-09-18] MEDS: traMADol HCl 50 MG TAB PO PRN (17:21)
[2017-09-18] MEDS: Temazepam 15 MG CAP PO PRN (22:55)
[2017-09-19] MEDS: traMADol HCl 50 MG TAB PO PRN (01:30)
[2017-09-19] MEDS: Acetaminophen/Codeine 30-300mg Tablet PO PRN ×3 (05:24→18:17)
[2017-09-19] MEDS: Famotidine 20 MG TAB PO SCH ×2 (08:50→20:53)
[2017-09-19] MEDS: Morphine 4 MG/ML VIAL SLOW IVP PRN ×3 (08:51→23:29)
--- NOTE | 2017-09-19 12:11 | PDOC.PN ---
- Subjective Encounter Start Date: 09/19/17 Encounter Start Time: 08:00 pt is only comfortable with left lateral position, other positing gives pain, still his pain level is high - Objective Resuscitation Status: Resuscitation Status FULL:Full Resuscitation MAR Reviewed: Yes Vital Signs & Weight: Vital Signs (12 hours) Temp Pulse Resp BP BP Pulse Ox 09/19/17 08:25 97.6 F 74 16 137/84 95 09/19/17 05:05 97.6 F 84 18 120/76 94 L 09/19/17 00:40 98.0 F 83 16 116/76 95 Weight Admit Weight 199 lb 15.344 oz Weight 199 lb 15.344 oz I&O: 09/18/17 09/19/17 09/20/17 06:59 06:59 06:59 Intake Total 3030 1200 Output Total 2630 30 Balance 400 1170 Result Diagrams: 09/15/17 08:37 09/15/17 08:37 Phys Exam - Physical Examination Constitutional: NAD HEENT: PERRLA, moist MMs, sclera anicteric Neck: no JVD, supple Respiratory: no wheezing, no rales, no rhonchi Cardiovascular: RRR, no significant murmur, no rub Gastrointestinal: soft, non-tender, no distention, positive bowel sounds Musculoskeletal: no edema, pulses present drain+, wound with dressing Neurological: non-focal, normal sensation, moves all 4 limbs Psychiatric: normal affect, A&O x 3 Skin: no rash, normal turgor Dx/Plan (1) Sepsis Code(s): A41.9 - SEPSIS, UNSPECIFIED ORGANISM Status: Acute (2) Iliopsoas abscess on right Code(s): K68.12 - PSOAS MUSCLE ABSCESS Status: Acute (3) Abnormal LFTs Code(s): R79.89 - OTHER SPECIFIED ABNORMAL FINDINGS OF BLOOD CHEMISTRY Status : Acute (4) Methamphetamine abuse Code(s): F15.10 - OTHER STIMULANT ABUSE, UNCOMPLICATED Status: Chronic (5) Polysubstance abuse Code(s): F19.10 - OTHER PSYCHOACTIVE SUBSTANCE ABUSE, UNCOMPLICATED Status: Chronic (6) Tobacco abuse Code(s): Z72.0 - TOBACCO USE Status: Chronic (7) Diarrhea Code(s): R19.7 - DIARRHEA, UNSPECIFIED Status: Resolved - Plan cont current plan of care, plan discussed w/ family, continue antibiotics, director of social work * continue IV rocephin * drain care, still draining will monitor * pain control with pain meds as below * will need arrangement for outpt IV antibiotics * medication reviewed as below * symptomatic treatment. Review of Systems - Review of Systems Constitutional: negative: fever, chills, sweats, weakness, malaise, other Eyes: negative: Pain, Vision Change, Conjunctivae Inflammation, Eyelid Inflammation, Redness, Other ENT: negative: Ear Pain, Ear Discharge, Nose Pain, Nose Discharge, Nose Congestion, Mouth Pain, Mouth Swelling, Throat Pain, Throat Swelling, Other Respiratory: negative: Cough, Dry, Shortness of Breath, Hemoptysis, SOB with Excertion, Pleuritic Pain, Sputum, Wheezing Cardiovascular: negative: chest pain, palpitations, orthopnea, paroxysmal nocturnal dyspnea, edema, light headedness, other Gastrointestinal: negative: Nausea, Vomiting, Abdominal Pain, Diarrhea, Constipation, Melena, Hematochezia, Other Genitourinary: negative: Dysuria, Frequency, Incontinence, Hematuria, Retention , Other Musculoskeletal: Leg Pain. negative: Neck Pain, Shoulder Pain, Arm Pain, Back Pain, Hand Pain, Foot Pain, Other - Medications/Allergies Allergies/Adverse Reactions: Allergies Allergy/AdvReac Type Severity Reaction Status Date / Time No Known Drug Allergies Allergy Verified 09/09/17 00:00 Medications: Current Medications Acetaminophen (Tylenol) 650 mg PO Q4H PRN PRN Reason: Headache/Fever or Mild Pain Acetaminophen/Codeine Phosphate (Tylenol #3) 1 tab PO Q6H PRN PRN Reason: Pain 1-3 1ST LINE Acetaminophen/Codeine Phosphate (Tylenol #3) 2 tab PO Q6H PRN PRN Reason: Pain 1-3 2ND LINE Last Admin: 09/19/17 12:09 Dose: 2 tab Hydrocodone Bitart/Acetaminophen (Waldo 5/325) 1 tab PO Q4H PRN PRN Reason: Moderate Pain (4-6) Last Admin: 09/18/17 16:21 Dose: 1 tab Al Hydroxide/Mg Hydroxide (Maalox) 15 ml PO Q4H PRN PRN Reason: Heartburn or Indigestion Clonidine (Catapres) 0.1 mg PO Q4H PRN PRN Reason: Systolic BP > 180 Famotidine (Pepcid) 20 mg PO BID [facility] Last Admin: 09/19/17 08:50 Dose: 20 mg Guaifenesin (Robitussin Sf) 200 mg PO Q4H PRN PRN Reason: Cough Hydralazine HCl (Apresoline) 10 mg SLOW IVP Q4H PRN PRN Reason: Systolic BP > 180 Ceftriaxone Sodium 2 gm/ (Sodium Chloride) 100 mls @ 200 mls/hr IVPB 1500 [facility] Last Admin: 09/18/17 14:56 Dose: 100 mls Loperamide HCl (Imodium) 2 mg PO PRN PRN PRN Reason: Diarrhea/Loose Stools Loratadine (Claritin) 10 mg PO DAILYPRN PRN PRN Reason: Sinus Symptoms Magnesium Hydroxide (Milk Of Magnesium) 30 ml PO DAILYPRN PRN PRN Reason: Constipation Melatonin (Melatonin) 3 mg PO HSPRN PRN PRN Reason: Insomnia Last Admin: 09/16/17 23:00 Dose: 3 mg Mineral Oil/White Petrolatum (Eucerin Cream) 0 gm TOP BIDPRN PRN PRN Reason: Dry Skin Morphine Sulfate (Morphine) 2 mg SLOW IVP Q4H PRN PRN Reason: Moderate Pain (4-6) Last Admin: 09/19/17 08:51 Dose: 2 mg Nicotine (Nicoderm Patch) 14 mg TD Q24HR [facility] Last Admin: 09/18/17 14:56 Dose: Not Given Ondansetron HCl (Zofran Odt) 4 mg PO Q6H PRN PRN Reason: Nausea/Vomiting Ondansetron HCl (Zofran) 4 mg IVP Q6H PRN PRN Reason: Nausea/Vomiting Phenol (Chloraseptic Kane 180 Ml Bot) 0 ml PO PRN PRN PRN Reason: Sore Throat Senna (Senokot) 2 tab PO HSPRN PRN PRN Reason: Constipation Sodium Chloride (Flush - Normal Saline) 10 ml IVF Q12HR [facility] Last Admin: 09/19/17 10:34 Dose: Not Given Sodium Chloride (Flush - Normal Saline) 10 ml IVF PRN PRN PRN Reason: Saline Flush Last Admin: 09/18/17 02:07 Dose: 10 ml Sodium Chloride (Vance Nasal Kane 0.65%) 0 ml EA NARE QIDPRN PRN PRN Reason: Nasal Congestion Temazepam (Restoril) 15 mg PO HSPRN PRN PRN Reason: Insomnia Last Admin: 09/18/17 22:55 Dose: 15 mg Tramadol HCl (Ultram) 50 mg PO Q6H PRN PRN Reason: Moderate Pain (4-6) Tramadol HCl (Ultram) 100 mg PO Q6H PRN PRN Reason: Pain 7-10 Last Admin: 09/19/17 01:30 Dose: 100 mg
[2017-09-19] MEDS: HYDROcodone/Acetaminophen 5/325 mg Tablet PO PRN ×2 (14:25→20:53)
[2017-09-19] MEDS: Nicotine 14 MG PATCH TD SCH (14:28)
[2017-09-19] MEDS: cefTRIAXone\\ROCEPHIN 2 GM in Sodium Chloride 0.9% 100 ML IVPB SCH ×2 (14:28→18:17)
[2017-09-19] MEDS: Temazepam 15 MG CAP PO PRN (20:55)
[2017-09-20] MEDS: Acetaminophen/Codeine 30-300mg Tablet PO PRN ×3 (02:56→19:56)
[2017-09-20] MEDS: traMADol HCl 50 MG TAB PO PRN ×3 (06:47→22:55)
[2017-09-20] MEDS: Famotidine 20 MG TAB PO SCH ×2 (08:37→19:55)
[2017-09-20] MEDS: HYDROcodone/Acetaminophen 5/325 mg Tablet PO PRN (11:34)
--- NOTE | 2017-09-20 14:15 | PDOC.PN ---
- Subjective Encounter Start Date: 09/20/17 Encounter Start Time: 14:13 Patient seen at bedside. No new events. - Objective Resuscitation Status: Resuscitation Status FULL:Full Resuscitation MAR Reviewed: Yes Vital Signs & Weight: Vital Signs (12 hours) Temp Pulse Resp BP Pulse Ox 09/20/17 12:05 97.5 F L 73 16 126/80 96 09/20/17 08:05 98.1 F 76 16 128/86 96 09/20/17 08:00 98.1 F 76 16 96 09/20/17 05:00 80 18 Weight Admit Weight 199 lb 15.344 oz Weight 199 lb 15.344 oz I&O: 09/19/17 09/20/17 09/21/17 06:59 06:59 06:59 Intake Total 1200 Output Total 30 800 Balance 1170 -800 Result Diagrams: 09/15/17 08:37 09/15/17 08:37 Phys Exam - Physical Examination Constitutional: NAD HEENT: PERRLA Neck: no nodes Respiratory: clear to auscultation bilateral Cardiovascular: RRR Gastrointestinal: soft Musculoskeletal: pulses present Drain (+) Neurological: moves all 4 limbs Psychiatric: A&O x 3 Dx/Plan (1) Iliopsoas abscess on right Code(s): K68.12 - PSOAS MUSCLE ABSCESS Status: Acute (2) Sepsis Code(s): A41.9 - SEPSIS, UNSPECIFIED ORGANISM Status: Acute (3) Polysubstance abuse Code(s): F19.10 - OTHER PSYCHOACTIVE SUBSTANCE ABUSE, UNCOMPLICATED Status: Chronic - Plan cont current plan of care, continue antibiotics, transition social worker * Continue with current management. * Awaiting outpatient abx arrangement
[2017-09-20] MEDS: Nicotine 14 MG PATCH TD SCH (15:29)
[2017-09-20] MEDS: Morphine 4 MG/ML VIAL SLOW IVP PRN (16:25)
[2017-09-20] MEDS: cefTRIAXone\\ROCEPHIN 2 GM in Sodium Chloride 0.9% 100 ML IVPB SCH (17:45)
[2017-09-20] MEDS: Temazepam 15 MG CAP PO PRN (19:56)
[2017-09-21] MEDS: HYDROcodone/Acetaminophen 5/325 mg Tablet PO PRN ×4 (01:09→22:11)
[2017-09-21] MEDS: Temazepam 15 MG CAP PO PRN ×2 (01:10→21:02)
[2017-09-21] MEDS: Acetaminophen/Codeine 30-300mg Tablet PO PRN ×2 (03:11→13:46)
[2017-09-21] MEDS: traMADol HCl 50 MG TAB PO PRN ×2 (05:49→16:11)
[2017-09-21] MEDS: Famotidine 20 MG TAB PO SCH ×2 (08:12→21:01)
--- NOTE | 2017-09-21 11:07 | PDOC.PN ---
- Subjective Encounter Start Date: 09/21/17 Encounter Start Time: 14:30 Subjective: Pain improved. Eager to go home. Ortho just pulled drain and has -: signed off. - Objective Resuscitation Status: Resuscitation Status FULL:Full Resuscitation MAR Reviewed: Yes Vital Signs & Weight: Vital Signs (12 hours) Temp Pulse Resp BP BP Pulse Ox 09/21/17 08:00 97.9 F 73 18 128/77 92 L 09/21/17 03:47 98.0 F 96 16 132/63 95 Weight Admit Weight 199 lb 15.344 oz Weight 199 lb 15.344 oz I&O: 09/20/17 09/21/17 09/22/17 06:59 06:59 06:59 Intake Total 1895 Output Total 800 20 5 Balance -800 1875 -5 Result Diagrams: 09/15/17 08:37 09/15/17 08:37 Phys Exam - Physical Examination Constitutional: NAD HEENT: moist MMs Respiratory: no wheezing, no rales, no rhonchi, clear to auscultation bilateral Cardiovascular: RRR, no significant murmur Gastrointestinal: soft, positive bowel sounds Neurological: non-focal Psychiatric: normal affect, A&O x 3 Dx/Plan (1) Iliopsoas abscess on right Code(s): K68.12 - PSOAS MUSCLE ABSCESS Status: Acute (2) Sepsis Code(s): A41.9 - SEPSIS, UNSPECIFIED ORGANISM Status: Acute Qualifiers: Sepsis type: methicillin susceptible Staphylococcus aureus Qualified Code(s ): A41.01 - Sepsis due to Methicillin susceptible Staphylococcus aureus (3) Methamphetamine abuse Code(s): F15.10 - OTHER STIMULANT ABUSE, UNCOMPLICATED Status: Chronic (4) Polysubstance abuse Code(s): F19.10 - OTHER PSYCHOACTIVE SUBSTANCE ABUSE, UNCOMPLICATED Status: Chronic (5) Tobacco abuse Code(s): Z72.0 - TOBACCO USE Status: Chronic - Plan cont current plan of care, continue antibiotics Will need outpatient IV abx until 10/29/2017 -: PICC line today and then plan on d/c tomorrow. * . - Discharge Day Encounter end time: 15:00
[2017-09-21] MEDS: Nicotine 14 MG PATCH TD SCH (17:30)
[2017-09-21] MEDS: cefTRIAXone\\ROCEPHIN 2 GM in Sodium Chloride 0.9% 100 ML IVPB SCH (17:54)
[2017-09-21] MEDS: Morphine 4 MG/ML VIAL SLOW IVP PRN (22:11)
[2017-09-22] MEDS: HYDROcodone/Acetaminophen 5/325 mg Tablet PO PRN ×3 (02:24→10:46)
[2017-09-22] MEDS: Morphine 4 MG/ML VIAL SLOW IVP PRN (05:06)
[2017-09-22] MEDS: Famotidine 20 MG TAB PO SCH (08:29)
--- NOTE | 2017-09-22 08:50 | PDOC.PN ---
- Subjective Encounter Start Date: 09/22/17 Encounter Start Time: 10:20 Subjective: Patient with pain from transfer after PICC. Otherwise doing well. - Objective Resuscitation Status: Resuscitation Status FULL:Full Resuscitation MAR Reviewed: Yes Vital Signs & Weight: Vital Signs (12 hours) Temp Pulse Resp BP Pulse Ox 09/22/17 04:51 98.0 F 78 18 128/84 94 L 09/22/17 00:15 97.7 F 81 18 125/81 96 09/21/17 21:23 98.2 F 81 17 134/81 99 09/21/17 21:02 98.2 F 81 17 99 Weight Admit Weight 199 lb 15.344 oz Weight 199 lb 15.344 oz I&O: 09/21/17 09/22/17 09/23/17 06:59 06:59 06:59 Intake Total 1895 1800 Output Total 20 2205 Balance 1875 -405 Result Diagrams: 09/15/17 08:37 09/15/17 08:37 Phys Exam - Physical Examination Constitutional: NAD HEENT: moist MMs Respiratory: no wheezing, no rales, no rhonchi Cardiovascular: RRR, no significant murmur Gastrointestinal: soft, positive bowel sounds Neurological: non-focal, moves all 4 limbs Psychiatric: normal affect, A&O x 3 Dx/Plan (1) Iliopsoas abscess on right Code(s): K68.12 - PSOAS MUSCLE ABSCESS Status: Acute (2) Sepsis Code(s): A41.9 - SEPSIS, UNSPECIFIED ORGANISM Status: Acute Qualifiers: Sepsis type: methicillin susceptible Staphylococcus aureus Qualified Code(s ): A41.01 - Sepsis due to Methicillin susceptible Staphylococcus aureus (3) Methamphetamine abuse Code(s): F15.10 - OTHER STIMULANT ABUSE, UNCOMPLICATED Status: Chronic (4) Polysubstance abuse Code(s): F19.10 - OTHER PSYCHOACTIVE SUBSTANCE ABUSE, UNCOMPLICATED Status: Chronic (5) Tobacco abuse Code(s): Z72.0 - TOBACCO USE Status: Chronic - Plan cont current plan of care, continue antibiotics PICC done today then d/c home -: IV Rocephin 2g daily until Oct 29, 2017 -: Weekly lab to Dr. Diaz' office * . - Discharge Day Encounter end time: 10:40
[2017-09-22] MEDS ORDERED: traMADol HCl 50 MG TAB PO PRN ×2 (10:45)
[2017-09-22] MEDS ORDERED: Heparin 1,000 UNITS/ML VIAL ONE (11:11)
--- NOTE | 2017-09-22 12:38 | SPC ---
SONOGRAPHIC GUIDED LEFT UPPER EXTREMITY PICC PLACEMENT: History: Hip infection. Need for long-term antibiotics. FINDINGS: After explaining the procedure and answering all questions, the left upper extremity was prepped and draped in the usual sterile fashion. Sterile technique, buffered local anesthesia, sonographic guidan ce, and a 22 gauge needle were used to access the left brachial vein. Standard technique was then use d to place a tip of a 5 [place] single lumen PICC so that the tip lies at the level of the superior ve na cava. Catheter was flushed and secured externally. Patient tolerated the procedure well and was re turned in unchanged condition. Fluoro time equals 0 seconds. IMPRESSION: Technically successful left upper extremity PICC placement. Catheter is now ready for use. POS: SANTIAGO
[2017-09-22 13:07] VITALS: BP 142/83; TEMP 97.9
--- NOTE | 2017-09-22 13:42 | DIS ---
PRIMARY CARE PHYSICIAN: Dafne keane. ADMISSION DIAGNOSES: 1. Sepsis. 2. Septic arthritis of the right hip. 3. Acute kidney injury. 4. Transaminitis. 5. Hypernatremia. 6. Polysubstance abuse including heroin and methamphetamines. 7. Right inguinal hernia, not incarcerated. DISCHARGE DIAGNOSES: 1. Right iliopsoas abscess, status post drainage. 2. Sepsis, resolved. 3. Polysubstance abuse. PROCEDURES: 1. CT abdomen and pelvis with contrast showing severe right hip degenerative changes along with comm unication of the right hip with a septated soft tissue collection in the right iliopsoas and right ps oas muscle retroperitoneal, likely an abscess. 2. CT guided cyst aspiration for abscess drainage with catheter placement. 3. Repeat CT of the pelvis showing reduction in the size of the psoas abscess. 4. PICC line placement. 5. Echocardiogram showing normal ejection fraction and borderline right ventricular heart size, no e vidence of congestive heart failure. PERTINENT LABORATORY: Culture from the abscess growing back Staphylococcus aureus resistant only to amoxicillin and sensitive to cephalosporins including Rocephin. CONSULTATIONS: 1. Orthopedics, Dr. Casas. 2. Infectious Disease, Dr. Diaz. SUMMARY OF HOSPITAL COURSE: This is a 46-year-old white male with a history of polysubstance abuse i ncluding IV drug abuse who came in with abdominal pain and nonweightbearing on the right hip for the last 2-3 weeks associated with a fever up to 102. He was found to have a septic hip with iliopsoas a bscess. He had surgery as above and culture positive for Staphylococcus. He was put on IV Rocephin with resolution of his white blood cell count, resolution of his fevers and improvement in his pain. The patient does have a history of IV drug abuse; however, he needed long-term IV antibiotics with w arnings given about not using the PICC line for injection of IV drugs. He had a PICC line placement and outpatient Rocephin was arranged per Dr. Diaz's orders. His mom has agreed to drive [facility]. DISCHARGE MANAGEMENT: Discharged home. The patient is to return for 2 grams of Rocephin daily IV un til 10/29/2017. He also needs weekly CBC, CRP, and CMP which will be drawn and sent to Dr. Diaz's o ffice. Follow up with Dr. Diaz as directed. ACTIVITY: As tolerated. DIET: Regular diet. IV therapy instructions. PICC line care given. DISCHARGE MEDICATIONS:. 1. Tylenol with codeine #3, 1-2 tablets every 6 hours as needed for pain, #60 tablets prescription d ispensed. 2. Rocephin 2 grams IV daily until 10/29/2017 as above. The patient has been warned strenuously not to use the PICC line for IV drug use.
== END 2017-09-22 13:09 | disposition home or self-care (01) | DRG 853 ==
LOC: ERS 17:39 → SURG A 23:35
PROVIDERS: ADMIT Family Medicine; ATTEND Family Medicine
PROC: 0W9J00Z Drainage of Pelvic Cavity with Drainage Device, Open Approach (ICD-10-PCS; principal; 2017-09-09)
PROC: 02HV33Z Insertion of Infusion Device into Superior Vena Cava, Percutaneous Approach (ICD-10-PCS; 2017-09-22)
DX: A41.01 Sepsis due to Methicillin susceptible Staphylococcus aureus (principal); K68.12 Psoas muscle abscess; M00.051 Staphylococcal arthritis, right hip; E87.1 Hypo-osmolality and hyponatremia; F19.10 Other psychoactive substance abuse, uncomplicated; K40.90 Unilateral inguinal hernia, without obstruction or gangrene, not specified as recurrent; F17.210 Nicotine dependence, cigarettes, uncomplicated; F15.10 Other stimulant abuse, uncomplicated; R19.7 Diarrhea, unspecified; R79.89 Other specified abnormal findings of blood chemistry
CPT/HCPCS: 36415; 36416; 36569; 49020; 71010; 72193; 74177; 77012; 80048; 80053; 80074; 80202; 80306; 81003; 81015; 82805; 83605; 85007; 85025; 85027; 85610; 85730; 86140; 87040; 87045; 87046; 87070; 87077; 87186; 87205; 87324; 87389; 87449; 87522; 87899; 93306; 96361; 96365; 96366; 96367; 96375; A4216; C1729; C1751; G8978-GP-CJ; G8979-GP-CJ; G8980-GP-CJ; G8987-GO-CK; G8988-GO-CI; J0696; J1644; J2250; J2270; J2405; J2543; J3010; J3370; J7050; Q0162

== ENCOUNTER 2017-10-06 19:07 | Emergency (ER) | payer OTHER, SELFPAY ==
[2017-10-06 20:09] LABS: #Eosinphils 0.2 thou/uL (0.0-0.7); #Lymphocytes 1.5 thou/uL (1.20-3.40); #Monocytes 0.6 thou/uL (0.11-0.59); #Neutrophils 5.2 thou/uL (1.40-6.50); %Basophils 0.1 % (0.0-1.0); %Lymphocytes 20.3 % (21.0-51.0); %Monocytes 7.8 % (0.0-10.0); %Neutrophils 69.7 % (42.0-75.0); Hemoglobin 10.5 g/dL (14.0-18.0); Mean Corpuscular HGB CONC 32.6 g/dL (32.0-36.0); Mean Corpuscular Hemoglobin 28.2 pg (27.0-31.0); Mean Corpuscular Volume 86.5 fl (80.0-94.0); Mean Platelet Volume 6.1 fL (7.4-10.4); Platelet Count 319 thou/uL (130-400); RBC Distribution Width 14.1 % (11.5-14.5); Red Blood Cell (RBC) Count 3.71 mill/uL (4.70-6.10); White Blood Cell (WBC) Count 7.4 thou/uL (4.8-10.8)
[2017-10-06 20:30] LABS: ALT (SGPT) 9 U/L (8-55); AST (SGOT) 13 U/L (5-34); Albumin 3.2 g/dL (3.5-5.0); Alkaline Phosphatase 73 U/L (40-150); Anion Gap 12 mmol/L (10-20); BUN (Urea Nitrogen) 17 mg/dL (8.9-20.6); Bilirubin, Total 0.2 mg/dL (0.2-1.2); Calc. Creatinine Clearance 0 mL/min (70-130); Calcium 9.7 mg/dL (7.8-10.44); Carbon Dioxide 29 mmol/L (22-29); Chloride 102 mmol/L (98-107); Estimated GFR-MDRD Greater than 90; Globulin 5.1 g/dL (2.4-3.5); Glucose 97 mg/dL (70-105); Potassium 4.5 mmol/L (3.5-5.1); Protein, Total 8.3 g/dL (6.0-8.3); Sodium 138 mmol/L (136-145)
[2017-10-06 20:35] LABS: CKMB 1.5 ng/mL (0-6.6); Troponin I Less than 0.010 ng/mL (< 0.028)
--- NOTE | 2017-10-06 20:59 | ULT ---
BILATERAL LOWER EXTREMITY VENOUS ULTRASOUND: History: Bilateral lower extremity pain and edema. Technique: Grayscale, color flow, and spectral doppler imaging of the deep venous systems of the lowe r extremities was performed bilaterally. FINDINGS: There is good flow, compression, and augmentation of the common femoral, femoral, deep femoral, popli teal, and posterior tibial veins on either side. There are lymph nodes seen in the groins on either s charlie. IMPRESSION: No evidence of DVT in either lower extremity. POS: SANTIAGO
== END 2017-10-06 22:00 | disposition home or self-care (01) ==
LOC: ERS 19:07
DX: R60.0 Localized edema (principal); K65.1 Peritoneal abscess; F17.210 Nicotine dependence, cigarettes, uncomplicated; Z71.6 Tobacco abuse counseling
CPT/HCPCS: 36415; 80053; 82553; 83880; 84484; 85025; 93970; 96372; 99406

== ENCOUNTER 2017-11-02 08:00 | Day surgery (SDC) | payer OTHER | END 2017-11-02 17:15 | disposition home or self-care (01) | LOC: ONC/OP 08:00 | PROVIDERS: ATTEND Internal Medicine Infectious Disease | DX: Z45.2 Encounter for adjustment and management of vascular access device (principal); M16.11 Unilateral primary osteoarthritis, right hip; F19.10 Other psychoactive substance abuse, uncomplicated; F15.10 Other stimulant abuse, uncomplicated; F17.200 Nicotine dependence, unspecified, uncomplicated; Z98.890 Other specified postprocedural states | CPT/HCPCS: 99211; G0463 ==

== ENCOUNTER 2018-01-30 18:25 | Inpatient (IN) | payer OTHER, SELFPAY ==
[~2018-01-30 18:25] MED LIST changes: -Iopamidol 370 76% 50 ML VIAL FS ONE
[2018-01-30] MEDS ORDERED: Ketorolac Tromethamine 30 MG/ML VIAL ONE (19:15)
[2018-01-30 19:18] LABS: #Eosinphils 0.1 thou/uL (0.0-0.7); #Lymphocytes 1.5 thou/uL (1.20-3.40); #Neutrophils 4.9 thou/uL (1.40-6.50); %Basophils 0.5 % (0.0-1.0); %Lymphocytes 19.8 % (21.0-51.0); %Monocytes 13.8 % (0.0-10.0); Mean Corpuscular HGB CONC 33.3 g/dL (32.0-36.0); Mean Corpuscular Hemoglobin 26.5 pg (27.0-31.0); Mean Corpuscular Volume 79.6 fl (80.0-94.0); Mean Platelet Volume 7.1 fL (7.4-10.4); Platelet Count 244 thou/uL (130-400); RBC Distribution Width 15.5 % (11.5-14.5); Red Blood Cell (RBC) Count 4.17 mill/uL (4.70-6.10); White Blood Cell (WBC) Count 7.5 thou/uL (4.8-10.8)
[2018-01-30 19:39] LABS: ALT (SGPT) 8 U/L (8-55); AST (SGOT) 13 U/L (5-34); Albumin 3.6 g/dL (3.5-5.0); Alkaline Phosphatase 59 U/L (40-150); Anion Gap 13 mmol/L (10-20); BUN (Urea Nitrogen) 21 mg/dL (8.9-20.6); Bilirubin, Total 0.5 mg/dL (0.2-1.2); Calc. Creatinine Clearance 0 mL/min (70-130); Calcium 9.4 mg/dL (7.8-10.44); Carbon Dioxide 25 mmol/L (22-29); Chloride 101 mmol/L (98-107); Estimated GFR-MDRD 67; Globulin 4.4 g/dL (2.4-3.5); Glucose 135 mg/dL (70-105); Potassium 3.9 mmol/L (3.5-5.1); Sodium 135 mmol/L (136-145)
--- NOTE | 2018-01-30 21:18 | CT ---
CT ABDOMEN AND PELVIS WITH CONTRAST: INDICATIONS: Right hip pain. Recently hospitalized with infection to right hip. COMPARISON: CT abdomen and pelvis from 09/08/2017. TECHNIQUE: Multiple axial tomograms obtained through the abdomen and pelvis with IV enhancement. FINDINGS: The lung bases are clear. The liver, spleen, and pancreas are unremarkable. Granulomatous calcifica tions are noted. There is mild nonspecific distention of proximal and mid small bowel loops. There is a large right i nguinal hernia with small and large bowel herniated into the inguinal canal and located in the scrotu m. This is probably producing a low grade bowel obstruction and resulting in the mild distention of the proximal and mid small bowel loops. There continues to be loculated fluid collections surrounding the right hip joint and extending into the iliacus muscle and the iliopsoas muscle. The collection in the iliacus muscle is smaller today, measuring approximately 3.2 cm on today's exam. Previously, this right iliacus collection was locula greta and measured up to 10 cm. The collections in the iliopsoas muscle are similar to the prior exam, with an area of low attenuation measuring up to 4 cm. Bone windows again show degenerative hypertro phic changes from the femoral head with erosive changes from the femoral head and acetabulum. A larg e cystic area in the femoral head has a similar appearance to the prior exam. Abnormal sclerosis in the femoral head and neck and acetabulum is seen. The kidneys are unremarkable with no evidence of hydronephrosis. IMPRESSION: 1. Large right inguinal hernia with colon and small bowel herniated into the scrotum. This appears to be producing a low grade small bowel obstruction. 2. Right hip effusion with loculated fluid collections adjacent to the right hip joint in the iliops oas muscle and iliacus muscle, similar to the prior exam of 09/08/2017. Erosive and cystic changes o f the hip joint are again noted, and appear stable. POS: AGW
[2018-01-30] MEDS ORDERED: Acetaminophen 325 MG TAB PO PRN (23:47)
[2018-01-30] MEDS ORDERED: Ondansetron HCl/PF 4 MG/2 ML Vial IVP PRN (23:47)
[2018-01-30] MEDS ORDERED: Ondansetron ODT 4 MG TAB SL PRN (23:51)
[2018-01-31 00:06] VITALS: BMI 23.5
--- NOTE | 2018-01-31 00:13 | PDOC.FPRHP ---
- History of Present Illness Chief Complaint: Right leg pain History of Present Illness: Pt is a 47 yo male with PMHx of IV drug use and R iliopsoas abscess with prolonged abx course who presents for recurrence of R hip pain. Pt states he has been on antibiotics since hospitalization in August of 2017 at which time he was diagnosed with MRSA psoas abscess and underwent drainage by IR. Patient was seen by Dr. Diaz during that hospitalization and started on rocephin as outpatient. He was then transitioned to Keflex which he was taking TID up until a week ago. After stopping antibiotics, patient notes that his right leg pain returned and was much worse than it had been. The pain has been progressing and was associated with a temperature of 101 F yesterday. Patient endorses IV heroin use for "pain", although it is suspected that the IVDA was the inciting factor for the abscess formation in the first place. He states that he uses heroin because he cannot get any doctor to give him pain medication. Per records, patient has been on suboxone treatment programs in the past, indicating that his heroin abuse started before his hospitalization in August. He does endorse using clean needles and does not share needles. He has had difficulty weight bearing on right leg due to pain. Patient also has a scrotal hernia which has been present for the last 4 years. He does not have funding available to have surgical repair. Patient denies any history of constipation, diarrhea, or decreased flatus. His last BM was yesterday. ED Course: Patient was given 1g of rocephin in 1 g of vancomycin in the ED for psoas abscess, possible septic joint, and likely osteomyelitis of right hip. Patient was also given 30 mg IV toradol for pain. - Allergies/Adverse Reactions Allergies Allergy/AdvReac Type Severity Reaction Status Date / Time No Known Drug Allergies Allergy Verified 01/31/18 00:04 - Home Medications Medication Instructions Recorded Confirmed Type No Known [No Known] 01/30/18 01/30/18 History - History PMHx: IVDA PSHx: Vasectomy, IR drainage of right iliopsoas abscess FHx: Non-contributory Social: Patient endorses IVDA. He admits to using heroin. Patient states he quit smoking during last hospitalization. He quit drinking alcohol 6 years ago. - Review of Systems General: reports: fever/chills. denies: weight/appetite/sleep changes Eyes: denies: vision changes ENT: denies: nasal congestion, rhinorrhea Respiratory: denies: cough, congestion, shortness of breath Cardiovascular: denies: chest pain, palpitation, edema Gastrointestinal: denies: nausea, vomiting, diarrhea, constipation, abdominal pain Genitourinary: denies: dysuria, polyuria Skin: denies: rashes, lesions, jaundice Musculoskeletal: reports: pain, tenderness, stiffness Neurological: reports: numbness, weakness. denies: syncope, seizure Psychological: reports: anxiety. denies: depression - Vital signs BP: 115/79 HR: 94 RR: 20 Tmax: 98.7 F Pox: 98% on RA Wt: 95.25 kg - Physical Exam Constitutional: awake, alert and oriented, well developed -Constitutional: Mild distress, particularly with movement HEENT: normocephalic and atraumatic, EOMI, no scleral icterus, normal nasal mucosa, MMM Neck: supple Heart: RRR, no murmurs/rubs/gallops, pulses present, no edema Lungs: CTAB, no respiratory distress, good air movement, no rales/rhonchi, no wheezing Abdomen: soft, non-tender, bowel sounds present -Abdomen: Right inguinal hernia reducible Musculoskeletal: normal structure -Musculoskeletal: Unable to lift right leg against gravity or resistance 2/2 pain, pain positional Neurological: no focal deficit Skin: no rash/lesions, capillary refill <2 seconds Heme/Lymphatic: no unusual bruising or bleeding, no purpura -Psychiatric: Anxious appearing FMR H&P: Results - Labs Result Diagrams: 01/31/18 05:17 01/31/18 05:17 Lab results: WBC 7.5 thou/uL (4.8-10.8) 01/30/18 19:05 Hgb 11.0 g/dL (14.0-18.0) L 01/30/18 19:05 Hct 33.2 % (42.0-52.0) L 01/30/18 19:05 MCV 79.6 fl (80.0-94.0) L 01/30/18 19:05 Plt Count 244 thou/uL (130-400) 01/30/18 19:05 Neutrophils % 65.0 % (42.0-75.0) 01/30/18 19:05 ESR Westergren 100 mm/hr (Less than 15) 01/30/18 19:05 Sodium 135 mmol/L (136-145) L 01/30/18 19:05 Potassium 3.9 mmol/L (3.5-5.1) 01/30/18 19:05 Chloride 101 mmol/L (98-107) 01/30/18 19:05 Carbon Dioxide 25 mmol/L (22-29) 01/30/18 19:05 BUN 21 mg/dL (8.9-20.6) H 01/30/18 19:05 Creatinine 1.17 mg/dL (0.6-1.3) 01/30/18 19:05 Glucose 135 mg/dL (70-105) H 01/30/18 19:05 Lactic Acid 1.0 mmol/L (0.5-2.2) 01/30/18 19:05 Calcium 9.4 mg/dL (7.8-10.44) 01/30/18 19:05 Total Bilirubin 0.5 mg/dL (0.2-1.2) 01/30/18 19:05 AST 13 U/L (5-34) 01/30/18 19:05 ALT 8 U/L (8-55) 01/30/18 19:05 Alkaline Phosphatase 59 U/L (40-150) 01/30/18 19:05 C-Reactive Protein 21.88 mg/dL (= or < 0.5) H 01/30/18 19:05 Serum Total Protein 8.0 g/dL (6.0-8.3) 01/30/18 19:05 Albumin 3.6 g/dL (3.5-5.0) 01/30/18 19:05 - Radiology Interpretation Other Status: image reviewed by me, report reviewed by me Additional comment: CT abdomen/pelvis: Large right inguinal hernia with colon and small bowel herniated into the scrotum which appears to be producing a low grade small bowel obstruction. Right hip effusion with loculated fluid collection adjacent to the right hip joint in the iliopsoas muscle and iliacus muscle. Erosive and cystic changes of the hip joint, consistent with changes of osteomyelitis. FMR H&P: A/P - Problem List (1) Iliopsoas abscess on right Current Visit: No Status: Acute Code(s): K68.12 - PSOAS MUSCLE ABSCESS (2) Osteomyelitis of right hip Current Visit: Yes Status: Acute Code(s): M86.9 - OSTEOMYELITIS, UNSPECIFIED (3) Polysubstance abuse Current Visit: No Status: Chronic Code(s): F19.10 - OTHER PSYCHOACTIVE SUBSTANCE ABUSE, UNCOMPLICATED (4) Tobacco abuse Current Visit: No Status: Chronic Code(s): Z72.0 - TOBACCO USE (5) Right inguinal hernia Current Visit: Yes Status: Chronic Code(s): K40.90 - UNIL INGUINAL HERNIA, W /O OBST OR GANGR, NOT SPCF RECUR - Plan Right psoas abscess - Chronic issue with R hip MRSA infection with iliopsoas extension - Has now completed protracted abx course (started in August and completed last week) - Worsening pain and fever at this time - CT shows continued suspected R psoas abscess; no imaging in interim to confirm resolution - Dr. Diaz was involved in mgmt; pt was on rocephin via PICC line and transitioned to keflex TID as outpatient for which he was taking up until a week ago - Pt has continued using IV drugs during this time - Will continue vancomycin and start patient on zosyn for broad spectrum coverage at this time - Dr. Casas consulted in ED and will evaluate tomorrow; appreciate recs - With osteomyelitis suspected on imaging, may need a hip washout vs IR drain; appreciate ortho recs - Blood cultures pending - No heart murmur or skin findings to suggest presence of endocarditis; No endocarditis in Sep 12. Right hip osteomyelitis - Suspected based on CT findings - ESR 100 - Ortho consulted; appreciate recs - Continue IV broad spectrum antibiotics - Pain control with opiates at this time with caution due to heroin addiction Polysubstance abuse - IV use of heroin - Has been in suboxone withdrawal program in past. Pt states only using for pain control. - [place] and prn morphine for pain control at this time. Likely to detox in hospital due to expected length of stay. - Blood cultures pending - HIV and RPR pending - Counseling given about need for primary care provider to assist in overall care and cessation of drug use Inguinal hernia - Very large and imaging suggested possible component of small bowel obstruction - Pt had bowel movement yesterday and does not clinically appear obstructed - Hernia was reduced with some effort by patient - Will not contact general surgery at this time as chronic hernia that has not yet been repaired due to funding issues. If concern for obstruction or no longer reducible, will consult general surgery. Dispo: Admit to medical unit with plans for possible surgical intervention by ortho. Anticipate LOS >48 hours. FMR H&P: Upper Level - Pertinent history Pt is a 47 yo CM with PMHx of IV drug use and R iliopsoas abscess with protracted abx course who presents for recurrence of R hip pain. Pt is poor historian overall. Poor follow-up and denies having a PCP. Had 2 wk hospital stay in Sep 12 for MRSA psoas abscess that was drained by IR and treated with outpt IV Rocephin per Dr. Diaz. Transitioned to Keflex at some point and ran out last week. States pain has been present since discharge in Aug and continues to worsen daily over last week ultimately leading to ED visit. Pt has hx of IV drug use (heroin) that is suspected to have been initial cause of hip infection. Pt endorses taking heroin currently due to no doctor giving him pain medicine. Per chart, he has been in suboxone treatment programs in past. Endorses using clean needles and not sharing needles. He states walking is difficult 2/2 pain. Fever 101 yesterday. Also has scrotal hernia present for at least 4 yrs but no funding available to have surgery to repair. Last bowel movement yesterday. - Pertinent findings Gen: A&Ox4, NAD CV: RRR, no m/r/g Lungs: CTAB, no increased WOB Abd: NT/ND, very large R scrotal hernia reducible with some effort, bowel sounds present in hernia MSK: + psoas sign (unable to extend hip against gravity 2/2 pain), pain with passive extension of R toes, normal active ROM L leg Ext: no edema or cyanosis Skin: track brown on bilateral antecubital fossa; no erythema or lesions visible on R hip - Plan Date/Time: 01/31/18 0013 1. R psoas abscess. Chronic issue with R hip MRSA infection with iliopsoas extension. Has now completed protracted abx course (started in August and completed last week) but endorses worsening pain and fever at this time. CT shows continued suspected R psoas abscess; no imaging in interim to confirm resolution. Dr. Diaz was involved in mgmt. Pt has continued using IV drugs during this time. Will expand to broad spectrum abx at this time. Dr. Casas consulted in ED and will evaluate tomorrow. With osteomyelitis suspected on imaging, may need a hip washout vs IR drain. Appreciate ortho recs. BCx collected. No heart murmur elicited. No endocarditis in Sep 12. No obvious findings on exam. Admit to medical with suspected >2 day stay. 2. R hip osteomyelitis. Suspected based on CT findings and ESR 100. Ortho consulted. Await recs. Continue IV abx. Pain control with opiates at this time with caution due to heroin addiction. 3. Polysubstance abuse. IV use of heroin continues at this time. Has been in suboxone withdrawal program in past. Pt states only using for pain control. [place] and prn morphine for pain control at this time. Likely to detox in hospital due to expected length of stay. Consider endocarditis. Await BCx. Also hx of methamphetamine abuse. Recheck HIV. Hep C Ab positive in Aug but RNA neg. Check RPR. Counseling given about need for primary care provider to assist in overall care. 4. Inguinal hernia. Very large and imaging suggested possible component of small bowel obstruction due to this. Pt had bowel movement yesterday and does not clinically appear obstructed. Hernia was reduced without issue. Will not contact general surgery at this time as chronic hernia that has not yet been repaired due to funding issues. If concern for obstruction or no longer reducible, will consult general surgery. I, Ed Barillas, have evaluated this patient and agree with findings/plan as outlined by internet sales representative resident. Pertinent changes/additions are listed here. Attending Addendum - Attending Addendum Date/Time: 01/31/182044 I personally evaluated the patient and discussed the management with Dr. Diaz and Dr. Barillas I agree with the History, Examination, Assessment and Plan documented above with any addition or exceptions noted below. 47 yo male with history of IV drug use complicated by recent right iliopsoas abscess presents with worsening s/sx of progressive infection. Now unable to ambulate. Worsening pain. Subjective fever and chills. Completed course of antibx 1.5 wks ago with symptoms started. Labs and imaging reviewed. Concern for right hip osteo. Will admit to medicine. Consult ortho surg and ID. Start vanc and zosyn. Discuss adding Rifampin with ID. Trend labs. Hernia. No obstruction at this time. Chronic, however worsening. Consider gen surg a needed. Reducible on exam. Continues to have regular BMs. Pain treatment. Maryam
[2018-01-31] MEDS ORDERED: Morphine 4 MG/ML VIAL SLOW IVP PRN (00:15)
[2018-01-31] MEDS: Sodium Chloride 0.9% 1,000 ML IV SCH ×4 (01:02→23:15)
[2018-01-31] MEDS: Piperacillin/Tazobactam 4.5 GM in Sodium Chloride 0.9% 100 ML IVPB SCH ×5 (01:03→23:15)
[2018-01-31] MEDS: HYDROcodone/Acetaminophen 10/325 mg Tablet PO SCH ×4 (01:04→07:52)
[2018-01-31 01:56] LABS: HIV (1/2) Antibody/Antigen Non-Reactive (NonReactive); HIV 1/2 INDEX 0.17 S/CO (<1.00)
[2018-01-31 05:06] LABS: Syphilis Antibody Nonreactive (Nonreactive); Syphilis Antibody Index 0.07 S/CO (<1.00 Non-Reactive)
[2018-01-31 05:43] LABS: Anion Gap 14 mmol/L (10-20); BUN (Urea Nitrogen) 26 mg/dL (8.9-20.6); Calc. Creatinine Clearance 83 mL/min (70-130); Calcium 8.7 mg/dL (7.8-10.44); Carbon Dioxide 23 mmol/L (22-29); Chloride 104 mmol/L (98-107); Estimated GFR-MDRD 60; Glucose 92 mg/dL (70-105); Potassium 4.2 mmol/L (3.5-5.1); Sodium 137 mmol/L (136-145)
[2018-01-31 05:47] LABS: Band 5 % (5-11); Eosinophils 4 % (0-10); Hemoglobin 9.9 g/dL (14.0-18.0); Lymphocytes 34 % (21-51); MDiff Complete? YES; Mean Corpuscular HGB CONC 32.4 g/dL (32.0-36.0); Mean Corpuscular Hemoglobin 26.2 pg (27.0-31.0); Mean Platelet Volume 6.9 fL (7.4-10.4); Monocytes 12 % (0-10); Neutrophil 45 % (42-75); PLT Morphology Comment Appears Adequate; Platelet Count 220 thou/uL (130-400); RBC Distribution Width 15.5 % (11.5-14.5); Red Blood Cell (RBC) Count 3.77 mill/uL (4.70-6.10); White Blood Cell (WBC) Count 6.2 thou/uL (4.8-10.8)
--- NOTE | 2018-01-31 05:56 | PDOC.FM ---
- Subjective Subjective: Patient states he did not have a good night. He states the pain did not allow him to sleep much overnight. He is resistant to moving because of his right hip pain. He has not had any n/v/d. He does complain of fevers that come and go. He has no other acute events overnight and no other complaints. - Objective Vital Signs & Weight: Vital Signs (12 hours) Temp Pulse Resp BP Pulse Ox 01/30/18 23:47 95 01/30/18 23:30 98.0 F 67 18 101/64 100 Weight Weight 83.007 kg Result Diagrams: 01/31/18 05:17 01/31/18 05:17 <Ren Navarrete - Last Filed: 01/31/18 06:53> - Objective Vital Signs & Weight: Vital Signs (12 hours) Temp Pulse Resp BP Pulse Ox 01/31/18 08:00 98.1 F 76 16 93/59 L 95 01/30/18 23:47 95 Weight Weight 83.007 kg I&O: 01/30/18 01/31/18 02/01/18 06:59 06:59 06:59 Intake Total 1015 Output Total 325 Balance 690 Result Diagrams: 01/31/18 05:17 01/31/18 05:17 <Zhao Castellanos - Last Filed: 01/31/18 11:32> Phys Exam - Physical Examination HEENT: moist MMs Respiratory: no wheezing, clear to auscultation bilateral Cardiovascular: RRR, no significant murmur Gastrointestinal: soft, non-tender, no distention, positive bowel sounds Musculoskeletal: no edema Neurological: non-focal Will not move RLE due to pain. Psychiatric: normal affect, A&O x 3 Skin: no rash <Ren Navarrete - Last Filed: 01/31/18 06:53> Dx/Plan (1) Osteomyelitis of right hip Code(s): M86.9 - OSTEOMYELITIS, UNSPECIFIED Status: Acute (2) Iliopsoas abscess on right Code(s): K68.12 - PSOAS MUSCLE ABSCESS Status: Acute (3) Right inguinal hernia Code(s): K40.90 - UNIL INGUINAL HERNIA, W/O OBST OR GANGR, NOT SPCF RECUR Status: Chronic (4) Polysubstance abuse Code(s): F19.10 - OTHER PSYCHOACTIVE SUBSTANCE ABUSE, UNCOMPLICATED Status: Chronic (5) Tobacco abuse Code(s): Z72.0 - TOBACCO USE Status: Chronic - Plan Plan: Right psoas abscess - 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 - Dr. Casas consulted, appreciate his rec - Blood cultures pending Right hip osteomyelitis - Suspected based on CT findings - ESR 100 - Ortho consulted; appreciate recs - Continue IV broad spectrum antibiotics - Pain control with opiates at this time with caution due to heroin addiction Polysubstance abuse - IV use of heroin - Has been in suboxone withdrawal program in past. Pt states only using for pain control. - [place] and prn morphine for pain control at this time. Likely to detox in hospital due to expected length of stay. - Blood cultures pending - HIV and RPR negative - Counseled on need to quit. Inguinal hernia - Very large and imaging suggested possible component of small bowel obstruction - Pt had bowel movement yesterday and does not clinically appear obstructed - Hernia was reduced with some effort by patient - Will consult General Surgery if patient becomes symptomatic Dispo: Stable, will await Ortho recs <Ren Navarrete - Last Filed: 01/31/18 06:53> Attending Addendum - Attending Addendum Date/Time: 01/31/18 1130 I personally evaluated the patient and discussed the management with Dr. Navarrete. I agree with the History, Examination, Assessment and Plan documented above with any addition or exceptions noted below. Patient resting comfortably at this time. Will work to control at this time with NSAIDs and add opiates for moderate/severe pain. Avoid IV opiates as much as possible due to his history of drug abuse, but will work to adequately control his pain. Ortho apparently planning surgery for debridement tomorrow morning. Will consult ID on case due to his risk for MDR organisms because of his IV drug use and fci antibiotic use in the recent past. No evidence of systemic infection at this time. <Zhao Castellanos - Last Filed: 01/31/18 11:32>
[2018-01-31 06:30] LABS: Amphetamine Detected (NotDetected); Barbiturates Screen Not Detected (NotDetected); Benzodiazepine Screen Not Detected (NotDetected); Cocaine Metabolite Screen Not Detected (NotDetected); Medtox Control Line Valid? VALID (VALID); Medtox Reader # READER 4; Methadone Not Detected (NotDetected); Methamphetamine Detected (NotDetected); Opiate Screen Detected (NotDetected); Oxycodone Screen Not Detected (NotDetected); Phencyclidine (PCP) Not Detected (NotDetected); THC/Cannabinoid Screen Not Detected (NotDetected); Tricyclic Screen Not Detected (NotDetected)
--- NOTE | 2018-01-31 09:00 | CON ---
DATE OF CONSULTATION: 01/31/2018 CHIEF COMPLAINT: Right hip pain. HISTORY OF PRESENT ILLNESS: Mr. Jeffries is a 47-year-old male who uses intravenous drugs. He has spann d an infection around the right hip in the past. He had an iliopsoas abscess, which was treated with a percutaneous drain and a 6 weeks course of intravenous antibiotics. He stopped his antibiotics ap proximately three weeks ago. He did have a MRSA infection. Unfortunately, he has had increased pain . He developed fevers and chills. He had a fever of 101 degrees Fahrenheit. He has been on crutche s since his previous infection. He has been unable to bear weight. He does have significant damage to his femoral head. He was admitted to the hospital after CT scan showed a recurrent abscess format ion with worsening of hip joint sepsis as well. There is evidence of osteomyelitis on his CT scan of the femoral head. PAST MEDICAL HISTORY: Intravenous drug use with osteomyelitis and psoas abscess as per HPI. PAST SURGICAL HISTORY: Vasectomy and drain placement into the right iliopsoas abscess. FAMILY MEDICAL HISTORY: Noncontributory. SOCIAL HISTORY: The patient uses intravenous drugs including heroin. He has a history of smoking. He has a history of alcohol use. IMAGES: CT scan of the right hip and pelvis is reviewed. The patient has an iliopsoas abscess with both intrapelvic and extrapelvic fluid collection. There is an abscess formation anterior to the hip joint as well as severe degenerative changes of the hip joint with cyst formation and collapse of th e femoral head suggestive of osteomyelitis. PHYSICAL EXAMINATION: VITAL SIGNS: Temperature is 98.0, pulse is 67, respiratory 18, oxygen saturation 100%. GENERAL: The patient is alert and oriented, sitting upright, in no apparent distress. RESPIRATORY: Breathing comfortably. ABDOMEN: Soft, nontender, and nondistended. MUSCULOSKELETAL: The patient's right lower extremity has pain with motion. There is some swelling o marshall the anterior and lateral aspect of the proximal thigh. He is neurovascularly intact in the foot and ankle. He has a palpable dorsalis pedis pulse. IMPRESSION: Recurrent iliopsoas abscess with septic hip joint and degenerative changes of the femora l head consistent with right hip osteomyelitis. PLAN: At this point, the patient will need to go to the operating room. I will plan for surgical in tervention tomorrow. I will plan for resection of his femoral head, irrigation and debridement of th e hip joint as well as the iliopsoas abscess. The patient will likely require a second surgery in ap proximately [address] bipolar hemiarthroplasty to restore some function. He will need a pro longed course of antibiotics. Goal of initial surgery is to assist in eradication of infection by re moving infected bone and decompression of his abscess. He is aware that he will have poor function o marshall the next one month. He will not be able to weightbear. He wants to proceed with this plan. He should be n.p.o. at midnight. He will continue his intravenous antibiotics.
[2018-01-31] MEDS: Vancomycin HCl 1.5 GM in Sodium Chloride 0.9% 250 ML 300 ML IVPB SCH ×2 (10:37→20:53)
[2018-01-31] MEDS: HYDROcodone/Acetaminophen 10/325 mg Tablet PO PRN ×2 (14:06→18:09)
[2018-02-01] MEDS: HYDROcodone/Acetaminophen 10/325 mg Tablet PO PRN ×4 (02:30→20:22)
[2018-02-01] MEDS: Sodium Chloride 0.9% 1,000 ML IV SCH (06:04)
[2018-02-01] MEDS: Piperacillin/Tazobactam 4.5 GM in Sodium Chloride 0.9% 100 ML IVPB SCH ×3 (06:04→20:11)
--- NOTE | 2018-02-01 06:21 | PDOC.FM ---
- Subjective Subjective: Patient had a good night. He states he still has pain in his right hip. He denies any fevers, chills, n/v/d. He states that he is ready to go to surgery today. He is unsure of his recovery and is hoping his pain is well controlled afterward. No other complaints this morning. - Objective Vital Signs & Weight: Vital Signs (12 hours) Temp Pulse Resp BP Pulse Ox 02/01/18 04:02 98 02/01/18 00:13 98.4 F 79 16 136/85 98 01/31/18 20:00 98.5 F 77 16 110/68 97 01/31/18 19:41 98.5 F 77 16 97 Weight Weight 83.007 kg I&O: 01/30/18 01/31/18 02/01/18 06:59 06:59 06:59 Intake Total 1015 3484 Output Total 325 1770 Balance 690 1714 Result Diagrams: 01/31/18 05:17 01/31/18 05:17 <Ren Navarrete - Last Filed: 02/01/18 07:38> - Objective Vital Signs & Weight: Vital Signs (12 hours) Temp Pulse Resp BP Pulse Ox 02/01/18 07:28 98.3 F 72 18 131/81 98 02/01/18 04:02 98 02/01/18 00:13 98.4 F 79 16 136/85 98 Weight Weight 83.007 kg I&O: 01/31/18 02/01/18 02/02/18 06:59 06:59 06:59 Intake Total 1015 3484 Output Total 325 1770 Balance 690 1714 Result Diagrams: 01/31/18 05:17 01/31/18 05:17 <Zhao Castellanos - Last Filed: 02/01/18 10:25> Phys Exam - Physical Examination HEENT: moist MMs Neck: no nodes Respiratory: no wheezing, clear to auscultation bilateral Cardiovascular: RRR, no significant murmur Gastrointestinal: soft, non-tender, no distention, positive bowel sounds Musculoskeletal: no edema, pulses present Neurological: non-focal, normal sensation Resistant to movement to Right lower extremity due to pain Lymphatic: no nodes Psychiatric: normal affect, A&O x 3 Skin: no rash <Ren Navarrete - Last Filed: 02/01/18 07:38> Dx/Plan (1) Osteomyelitis of right hip Code(s): M86.9 - OSTEOMYELITIS, UNSPECIFIED Status: Acute (2) Iliopsoas abscess on right Code(s): K68.12 - PSOAS MUSCLE ABSCESS Status: Acute (3) Right inguinal hernia Code(s): K40.90 - UNIL INGUINAL HERNIA, W/O OBST OR GANGR, NOT SPCF RECUR Status: Chronic (4) Polysubstance abuse Code(s): F19.10 - OTHER PSYCHOACTIVE SUBSTANCE ABUSE, UNCOMPLICATED Status: Chronic (5) Tobacco abuse Code(s): Z72.0 - TOBACCO USE Status: Chronic - Plan Plan: Right psoas abscess - 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 - Dr. Casas consulted, appreciate his rec. Surgery this AM. - Blood cultures pending Right hip osteomyelitis - Suspected based on CT findings - ESR 100 - Ortho consulted; appreciate recs - Surgery this AM, will follow up with Ortho recs Post-Op - Continue IV broad spectrum antibiotics - Pain control with opiates at this time with caution due to heroin addiction Polysubstance abuse - IV use of heroin - Has been in suboxone withdrawal program in past. Pt states only using for pain control. - [place] and prn morphine for pain control at this time. Likely to detox in hospital due to expected length of stay. - Blood cultures pending - UDS positive for opiates and amphetamines - HIV and RPR negative - Counseled on need to quit. Inguinal hernia - Very large and imaging suggested possible component of small bowel obstruction - Pt had bowel movement yesterday and does not clinically appear obstructed - Hernia was reduced with some effort by patient - Will consult General Surgery if patient becomes symptomatic Dispo: Stable, will await results from Surgery. <Ren Navarrete - Last Filed: 02/01/18 07:38> Attending Addendum - Attending Addendum Date/Time: 02/01/18 1023 I personally evaluated the patient and discussed the management with Dr. Navarrete. I agree with the History, Examination, Assessment and Plan documented above with any addition or exceptions noted below. Patient has continued pain in his hip joint and back, but is going for surgery sometime today with Ortho. Continue Vanc and Zosyn, and will obtain ID consult to help with decisions on intermodal customer service antibiotics. All likely a result of his IV drug use and bacterial seeding and non compliance with therapy. Will need intensive therapy and placement after his surgery. Pain control as needed but work to decrease need for opiates 2/2 heroin abuse. <Zhao Castellanos - Last Filed: 02/01/18 10:25>
[2018-02-01] MEDS: Ketorolac Tromethamine 30 MG/ML VIAL IVP PRN ×2 (08:33→20:21)
[2018-02-01 08:44] LABS: Vancomycin, Trough 13.2 ug/mL
[2018-02-01] MEDS: Vancomycin HCl 1.5 GM in Sodium Chloride 0.9% 250 ML 300 ML IVPB SCH ×2 (09:51→20:20)
[2018-02-01] MEDS ORDERED: PROPOFOL 200 MG/20 ML VIAL ONE (13:50)
[2018-02-01] MEDS ORDERED: Lidocaine 1% PF 5 ML VIAL ONE (13:50)
[2018-02-01] MEDS ORDERED: Fentanyl 250 MCG/5 ML VIAL ONE (14:42)
[2018-02-01] MEDS ORDERED: Fentanyl 100 MCG/2 ML VIAL ONE ×3 (14:43→18:49)
[2018-02-01] MEDS ORDERED: Albuterol Sulfate 2.5 mg/3 ml Neb NEB SCH (15:00)
[2018-02-01] MEDS ORDERED: Fentanyl 100 MCG/2 ML VIAL SLOW IVP SCH (15:00)
[2018-02-01] MEDS ORDERED: Tobramycin Sulfate 1.2 GM VIAL ONE (17:35)
[2018-02-01] MEDS ORDERED: HYDROmorphone 0.5 MG/0.5 ML SYRINGE ONE ×3 (18:18→19:15)
[2018-02-01] MEDS ORDERED: Promethazine HCl 25 MG/ML VIAL SLOW IVP PRN (18:48)
[2018-02-01] MEDS ORDERED: Ondansetron HCl/PF 4 MG/2 ML Vial IVP PRN (18:48)
[2018-02-01] MEDS ORDERED: HYDROmorphone 2 MG/ML VIAL SLOW IVP PRN (18:48)
[2018-02-01] MEDS ORDERED: Promethazine HCl 25 MG/ML VIAL IM PRN (18:48)
--- NOTE | 2018-02-01 19:10 | CON ---
DATE OF CONSULTATION: 02/01/2018 REASON FOR CONSULTATION: Recrudescence of hip inflammatory process. HISTORY OF PRESENT ILLNESS: A 47-year-old whom we had evaluated recently when he presented with a hi story of IV drug use with heroin and methamphetamine and right hip pain. The patient was identified with methicillin-sensitive Staph aureus infection with extension to the psoas muscle on withdrawal sy ndrome. There is improvement in inflammatory process. He was managed conservatively after percutane ous drainage and was sent to [place] with a PICC line for IV Rocephin. I did not see this patient in followup and now he presents with worsening pain in the right hip. He had been on Keflex orally whi ch he stopped about a week before this admission after stopping antimicrobial therapy noted the worse [place]non right hip pain associated with temperature elevation. He also acknowledges using IV heroin for pain management, claims to use clean needles for the injection. On initial evaluation, temperature 9 8.7, BP 115/79. HEENT exam is normal. Heart without murmurs. Lungs are clear. Abdomen is soft and nontender. There is a right reducible inguinal hernia. There was marked pain on mobilization of th e hip. White cell count 6.2, hemoglobin 9.9, platelets 220 with creatinine 1.28, sed rate 100. Live r profile within normal limits. CRP 21. CT of the abdomen and pelvis showed a right hip effusion wi th loculated fluid collection adjacent right hip joint and iliopsoas muscle and iliacus muscle, erosi ve and cystic changes in the hip joint and Dr. Casas has been consulted and is going to take the patient for I&D later on. No headaches or vomiting. No diarrhea. No dyspnea or chest pain. No gen itourinary symptoms. No skin disorder. PAST MEDICAL HISTORY: IV heroin and methamphetamine use; right hip and iliopsoas infection with MSSA ; chronic smoking; inguinal hernia, reducible. PAST SURGICAL HISTORY: Vasectomy. ALLERGIES: None. CURRENT MEDICATIONS: Tylenol, [place], Ventolin, Sublimaze, Toradol, Zofran, Zosyn, vancomycin. FAMILY HISTORY: Noncontributory. SOCIAL HISTORY: IV drug use, history of heroin addiction. PHYSICAL EXAMINATION: VITAL SIGNS: Essentially normal findings with temperature max 99.7. Peripheral IV access. No Gaytan catheter. No lymphadenopathy. HEENT: Ocular movements are conjugate. Oral cavity normal. NECK: Supple. LUNGS: With symmetric clear breath sounds. CARDIOVASCULAR: S1, S2. Regular rate without murmurs. ABDOMEN: Soft and not distended. Marked limitation of range of motion of the right hip. NEUROLOGIC: His cognitive function is intact. LABORATORY AND X-RAY FINDINGS: White cell count 6.2, hemoglobin 9.9, MCV 81, platelets 220, 65% neut rophils. Creatinine 1.17 to 1.28. Liver profile normal. CRP 21. HIV serology negative. Radiology studies reported above. ASSESSMENT: IV drug use dependency mostly heroin with previously identified in the right hip/psoas a nd iliacus pyomyositis, treated conservatively with percutaneous drainage and then protracted IV Roce phin, which he completed. He is doing well until recently when there is recrudescence of the infecti on with evidence of osteomyelitis. The patient is going to undergo I&D of the area probably resection of the head of the femur and then protracted antimicrobial therapy for at this time for 8 weeks and then continuation of suppressive th erapy probably for more than 6 months.
[2018-02-01] MEDS: Enoxaparin Sodium 40 MG/0.4 ML SYRINGE SC SCH (20:20)
--- NOTE | 2018-02-01 20:32 | RAD ---
AP PELVIS: 02/01/18 HISTORY: Resection of femoral head. COMPARISON: A 01/30/18 CT examination. Postoperative changes are now present. There has been resection of the femoral head with what appears to be some type of bone graft present. Sclerotic bone density now present in this area. IMPRESSION: Postoperative resection of the right femoral head. POS: [facility]
--- NOTE | 2018-02-01 22:02 | OP ---
DATE OF PROCEDURE: 02/01/2018 OPERATION: 1. Irrigation and debridement of right hip. 2. Resection of right femoral head. 3. Antibiotic spacer placement to right hip. 4. Irrigation and debridement of pelvic abscess. PREOPERATIVE DIAGNOSIS: Right septic hip with osteomyelitis and destruction of hip joint, right psoa s abscess, right pelvic wall abscess. POSTOPERATIVE DIAGNOSIS: Right septic hip with osteomyelitis and destruction of hip joint, right pso as abscess, right pelvic wall abscess. COMPLICATIONS: None. ESTIMATED BLOOD LOSS: 200 mL. SURGEON: Tanner Casas M.D. MINE CAPTAIN: Antwan Fuchs PA-C IMPLANTS: None. INDICATIONS FOR PROCEDURE: Mr. Jeffries is a 47-year-old male, who is an intravenous drug user. He h as become bacteremic and seeded his hip joint with bacteria. He has previously had a percutaneous dr ashley placed; however, this has failed to resolve his infection despite long-term antibiotics. He had a recurrence of infection and abscess formation. He has advanced osteomyelitis of the femoral head. He has been indicated for resection of the femoral head as well as irrigation and debridement to hop efully assist in eradication of infection. He will need long-term antibiotics as well. DESCRIPTION OF PROCEDURE: Mr. Jeffries was identified in the preoperative holding area. He was tami ed to the operating room. His correct extremity was marked. He was positioned supine. General anes thesia was induced. He was on intravenous antibiotics prior to surgery. We began the procedure with a Suárez-Sami approach to the right hip. We made an anterior incision, di ssected down through subcutaneous tissue to the tensor fascia. This was incised. We then worked med ially around the tensor fascia muscle more deeply. We then developed a plane between the rectus femo ris and the tensor fascia. We then opened the deep fascia down to the bony level. We placed a Hohma nn medially. We protected the neurovascular structures. We then performed a capsulotomy opening the anterior capsule of the hip joint. At this point, we dislocated the femoral head. There was a comp lete destruction of the femoral head with collapse, osteophyte formation and obvious infection. Ther e was purulent material. We cultured this. We sent bone as well to the lab. We then resected the f emoral head using oscillating saw. At this point, we thoroughly irrigated with copious lavage. We d ebrided deep tissue from the acetabulum. We then placed a batch of antibiotic laden cement, 3 grams of vancomycin and 3.6 grams of tobramycin were mixed and with our cement batch. This was placed with in the acetabulum. At this point, we moved more proximally. We made an incision over the iliac crest, dissected down th rough the subcutaneous tissue. We incised the fascia over the iliac crest. We then elevated the kenney acus muscle. At this point, we worked more deeply down into the pelvic brim. We encountered gross p urulence with abscess formation. A culture was taken from this fluid as well. We encountered signif icant abscess. This was thoroughly irrigated with copious lavage. We used a curette to debride as w ell. Once we had thorough debridement, we placed a deep Hemovac drain in this space. This was taken out through the skin. At this point, after final irrigation, we closed all wounds appropriately in layers. The patient was taken to the recovery room in good condition without complication.
[2018-02-02] MEDS ORDERED: HYDROcodone/Acetaminophen 5/325 mg Tablet PO SCH (00:15)
[2018-02-02] MEDS: Piperacillin/Tazobactam 4.5 GM in Sodium Chloride 0.9% 100 ML IVPB SCH ×4 (00:19→17:13)
[2018-02-02] MEDS: HYDROcodone/Acetaminophen 10/325 mg Tablet PO PRN ×5 (00:31→17:17)
[2018-02-02] MEDS: Ketorolac Tromethamine 30 MG/ML VIAL IVP PRN ×2 (02:03→20:44)
--- NOTE | 2018-02-02 06:10 | PDOC.FM ---
- Subjective Subjective: Patient has had significant pain since the procedure. He states that he didn't sleep much overnight. He has not had chest pain, sob, n/v/d, fevers, or chills. He would like better pain control. Because of his history of drug abuse, using Opiate pain medication is not ideal, patient has been counseled on using the provided ketoralac, ibuprofen, and tylenol with the [place] available for severe pain. No other complaints. - Objective Vital Signs & Weight: Vital Signs (12 hours) Temp Pulse Resp BP BP Pulse Ox 02/02/18 04:00 97.9 F 80 16 146/92 H 98 02/02/18 00:00 97.5 F L 82 18 125/81 95 02/01/18 20:00 98.5 F 74 20 128/83 97 Weight Weight 83.007 kg I&O: 01/31/18 02/01/18 02/02/18 06:59 06:59 06:59 Intake Total 1015 3484 Output Total 325 1770 80 Balance 690 1714 -80 Result Diagrams: 01/31/18 05:17 01/31/18 05:17 <Ren Navarrete - Last Filed: 02/02/18 08:18> - Objective Vital Signs & Weight: Vital Signs (12 hours) Temp Pulse Resp BP BP Pulse Ox 02/02/18 08:00 98.4 F 90 18 131/86 98 02/02/18 04:00 97.9 F 80 16 146/92 H 98 02/02/18 00:00 97.5 F L 82 18 125/81 95 Weight Weight 83.007 kg I&O: 02/01/18 02/02/18 02/03/18 06:59 06:59 06:59 Intake Total 3484 900 240 Output Total 1770 530 Balance 1714 370 240 Result Diagrams: 01/31/18 05:17 01/31/18 05:17 <Zhao Castellanos - Last Filed: 02/02/18 10:53> Phys Exam - Physical Examination HEENT: moist MMs Neck: no nodes Respiratory: no wheezing, clear to auscultation bilateral Cardiovascular: RRR, no significant murmur Gastrointestinal: soft, non-tender, no distention, positive bowel sounds Musculoskeletal: no edema, pulses present Right leg externally rotated Neurological: non-focal, normal sensation Does not move RLE secondary to pain, s/p surgery Lymphatic: no nodes Psychiatric: normal affect, A&O x 3 Skin: no rash <Ren Navarrete - Last Filed: 02/02/18 08:18> Dx/Plan (1) Osteomyelitis of right hip Code(s): M86.9 - OSTEOMYELITIS, UNSPECIFIED Status: Acute (2) Iliopsoas abscess on right Code(s): K68.12 - PSOAS MUSCLE ABSCESS Status: Acute (3) Right inguinal hernia Code(s): K40.90 - UNIL INGUINAL HERNIA, W/O OBST OR GANGR, NOT SPCF RECUR Status: Chronic (4) Polysubstance abuse Code(s): F19.10 - OTHER PSYCHOACTIVE SUBSTANCE ABUSE, UNCOMPLICATED Status: Chronic (5) Tobacco abuse Code(s): Z72.0 - TOBACCO USE Status: Chronic - Plan Plan: Right psoas abscess - 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 - Dr. Casas consulted, appreciate his rec. - Blood cultures no growth to date - Abscess cultures pending Right hip osteomyelitis - Suspected based on CT findings - ESR 100 - Ortho consulted; appreciate recs - S/P resection of femoral head - Continue IV broad spectrum antibiotics, Dr. Diaz recommends 6 months antibiotic therapy. - Pain control with opiates at this time with caution due to heroin addiction - Tylenol, Ibuprofen, Toradol, [place] available for pain. Polysubstance abuse - IV use of heroin - Has been in suboxone withdrawal program in past. Pt states only using for pain control. - [place] and prn morphine for pain control at this time. Likely to detox in hospital due to expected length of stay. - Blood cultures pending - UDS positive for opiates and amphetamines - HIV and RPR negative - Counseled on need to quit. Inguinal hernia - Very large and imaging suggested possible component of small bowel obstruction - Pt had bowel movement yesterday and does not clinically appear obstructed - Hernia was reduced with some effort by patient - Will consult General Surgery if patient becomes symptomatic Dispo: Stable, Tolerated surgery well. Will continue antibiotics. Patient will likely need placement. <Ren Navarrete - Last Filed: 02/02/18 08:18> Attending Addendum - Attending Addendum Date/Time: 02/02/18 1047 I personally evaluated the patient and discussed the management with Dr. Navarrete. I agree with the History, Examination, Assessment and Plan documented above with any addition or exceptions noted below. Patient is s/p femoral head surgery yesterday. Cultures were obtained during the surgery. Continue antibiotic treatment per ID recs. PT per Ortho. Will work to manage control of his pain but would appreciate Ortho assistance with the management of the patient's post op pain. <Zhao Castellanos - Last Filed: 02/02/18 10:53>
[2018-02-02] MEDS: Ibuprofen 800 MG TAB PO PRN (08:40)
[2018-02-02] MEDS: Vancomycin HCl 1.5 GM in Sodium Chloride 0.9% 250 ML 300 ML IVPB SCH ×2 (08:40→20:45)
[2018-02-02] MEDS: Morphine 4 MG/ML VIAL SLOW IVP PRN ×2 (10:08→14:43)
[2018-02-02] MEDS: tiZANidine HCl 4 MG TAB PO SCH ×2 (14:43→20:44)
--- NOTE | 2018-02-02 16:18 | PRG ---
DATE OF SERVICE: 02/02/2018 SUBJECTIVE: Mr. Jeffries had a resection of the hip and washout. He is having moderate pain at the s ite. No respiratory symptoms or abdominal pain. No diarrhea. OBJECTIVE: VITAL SIGNS: T-max 98.5, blood pressure 130/80, pulse 90, respirations 18, diaphoretic, probably fro m opioid withdrawal. HEENT: Pupils are somewhat miotic. NECK: Supple. LUNGS: Symmetric. Clear breath sounds. CARDIOVASCULAR: S1, S2, regular rate. ABDOMEN: Soft and not distended. HOSPITAL COURSE: Surgical report was reviewed and anterior incision made over the right hip, dissect ed down to subcutaneous tissue of the tensor fascia. The fascia was opened. Neurovascular structure s were protected. Capsulotomy was performed opening the anterior capsule of the hip joint. Femoral head was dislocated and noted complete destruction of the femoral head with collapse, osteophyte form ation, obvious infection, purulent material. The femoral head was resected and irrigated. The area irrigated. Antibiotic laden cement was placed with vancomycin and tobramycin. The incision over the iliac crest was performed and dissected down to the subcutaneous tissue. Fascia was incised over th e iliac crest and then gross purulence was found with abscess formation. Culture was taken and lavag ed. LABORATORY DATA: White cell count was 6.2, hemoglobin 9.9, platelets 220,000. Creatinine is up to 1 .28 and all the samples are pending. Gram stain did not show any organisms. ASSESSMENT AND DISCUSSION: IV drug use with dependency, mostly heroin with right hip/psoas and iliac us pyomyositis, which failed conservative treatment. Now, the patient is status post resection of th e head of the right hip and washout with incision and drainage of the pelvic area on the right side. The patient will have to continue IV antimicrobial therapy with Rocephin until 04/01, weekly labs, C BC, CRP, CMP. Setting of administration probably close to his residence, I believe somewhere in [facility].
[2018-02-02] MEDS: Enoxaparin Sodium 40 MG/0.4 ML SYRINGE SC SCH (20:43)
[2018-02-02 21:51] LABS: #Eosinphils 0.1 thou/uL (0.0-0.7); #Lymphocytes 1.5 thou/uL (1.20-3.40); #Monocytes 0.7 thou/uL (0.11-0.59); #Neutrophils 5.7 thou/uL (1.40-6.50); %Basophils 0.2 % (0.0-1.0); %Eosinophils 1.6 % (0.0-10.0); %Lymphocytes 18.7 % (21.0-51.0); %Monocytes 8.9 % (0.0-10.0); %Neutrophils 70.5 % (42.0-75.0); Hemoglobin 8.1 g/dL (14.0-18.0); Mean Corpuscular HGB CONC 32.9 g/dL (32.0-36.0); Mean Corpuscular Hemoglobin 26.2 pg (27.0-31.0); Mean Corpuscular Volume 79.6 fl (80.0-94.0); Mean Platelet Volume 6.1 fL (7.4-10.4); Platelet Count 295 thou/uL (130-400); RBC Distribution Width 14.9 % (11.5-14.5); Red Blood Cell (RBC) Count 3.08 mill/uL (4.70-6.10)
[2018-02-02 22:10] LABS: ALT (SGPT) Less than 7 U/L (8-55); AST (SGOT) 10 U/L (5-34); Albumin 2.6 g/dL (3.5-5.0); Alkaline Phosphatase 42 U/L (40-150); Anion Gap 11 mmol/L (10-20); BUN (Urea Nitrogen) 11 mg/dL (8.9-20.6); Bilirubin, Total 0.2 mg/dL (0.2-1.2); Calc. Creatinine Clearance 117 mL/min (70-130); Calcium 8.1 mg/dL (7.8-10.44); Carbon Dioxide 23 mmol/L (22-29); Chloride 108 mmol/L (98-107); Estimated GFR-MDRD 89; Globulin 3.2 g/dL (2.4-3.5); Glucose 139 mg/dL (70-105); Potassium 3.9 mmol/L (3.5-5.1); Protein, Total 5.8 g/dL (6.0-8.3); Sodium 138 mmol/L (136-145)
[2018-02-03] MEDS: Piperacillin/Tazobactam 4.5 GM in Sodium Chloride 0.9% 100 ML IVPB SCH ×5 (00:04→23:17)
[2018-02-03] MEDS: HYDROcodone/Acetaminophen 10/325 mg Tablet PO PRN ×5 (00:07→23:16)
[2018-02-03] MEDS: Ketorolac Tromethamine 30 MG/ML VIAL IVP PRN ×3 (03:48→20:30)
--- NOTE | 2018-02-03 06:22 | PDOC.FM ---
- Subjective Subjective: Patient has had improved pain control overnight. He does not have a firm grasp on the extent of his disease. He was counseled extensively on not being able to drive and a limitation in his ambulation until he can have his subsequent surgery. He states he doesn't have a great support system at home and won't be able to have a emergency medical technician/driver to take him to get his outpatient antibiotics every day. Otherwise no acute events. No other complaints. - Objective Vital Signs & Weight: Vital Signs (12 hours) Temp Pulse Resp BP BP Pulse Ox 02/03/18 03:57 98.5 F 80 16 109/69 97 02/02/18 20:01 99.6 F 86 20 99/62 96 02/02/18 20:00 99.6 F 86 20 96 Weight Weight 83.007 kg I&O: 02/01/18 02/02/18 02/03/18 06:59 06:59 06:59 Intake Total 3484 900 1840 Output Total 1770 530 860 Balance 1714 370 980 Result Diagrams: 02/02/18 21:43 02/02/18 21:43 <Ren Navarrete - Last Filed: 02/03/18 08:26> - Objective Vital Signs & Weight: Vital Signs (12 hours) Temp Pulse Resp BP Pulse Ox 02/03/18 03:57 98.5 F 80 16 109/69 97 Weight Weight 83.007 kg I&O: 02/02/18 02/03/18 02/04/18 06:59 06:59 06:59 Intake Total 900 1840 Output Total 530 860 Balance 370 980 Result Diagrams: 02/02/18 21:43 02/02/18 21:43 <Zhao Castellanos - Last Filed: 02/03/18 10:33> Phys Exam - Physical Examination HEENT: moist MMs Neck: no nodes Respiratory: no wheezing, clear to auscultation bilateral Cardiovascular: RRR, no significant murmur Gastrointestinal: soft, non-tender, no distention, positive bowel sounds Musculoskeletal: no edema, pulses present Neurological: non-focal, normal sensation RLE resists movement due to pain. Lymphatic: no nodes Psychiatric: normal affect, A&O x 3 Skin: no rash <Ren Navarrete - Last Filed: 02/03/18 08:26> Dx/Plan (1) Osteomyelitis of right hip Code(s): M86.9 - OSTEOMYELITIS, UNSPECIFIED Status: Acute (2) Iliopsoas abscess on right Code(s): K68.12 - PSOAS MUSCLE ABSCESS Status: Acute (3) Right inguinal hernia Code(s): K40.90 - UNIL INGUINAL HERNIA, W/O OBST OR GANGR, NOT SPCF RECUR Status: Chronic (4) Polysubstance abuse Code(s): F19.10 - OTHER PSYCHOACTIVE SUBSTANCE ABUSE, UNCOMPLICATED Status: Chronic (5) Tobacco abuse Code(s): Z72.0 - TOBACCO USE Status: Chronic - Plan Plan: Right psoas abscess - 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 - Dr. Casas consulted, appreciate his rec. - Blood cultures no growth to date - Abscess cultures pending Right hip osteomyelitis - Suspected based on CT findings - ESR 100 - Ortho consulted; appreciate recs - S/P resection of femoral head - Continue IV broad spectrum antibiotics, Dr. Diaz recommends antibiotics until 04/01 at this time. - Pain control with opiates at this time with caution due to heroin addiction - Tylenol, Ibuprofen, Toradol, [place] available for pain. - Ortho added Zanaflex and Morphine to regimen Polysubstance abuse - IV use of heroin - Has been in suboxone withdrawal program in past. Pt states only using for pain control. - [place] and prn morphine for pain control at this time. Likely to detox in hospital due to expected length of stay. - Blood cultures pending - UDS positive for opiates and amphetamines - HIV and RPR negative - Counseled on need to quit. Inguinal hernia - Very large and imaging suggested possible component of small bowel obstruction - Pt had bowel movement yesterday and does not clinically appear obstructed - Hernia was reduced with some effort by patient - Will consult General Surgery if patient becomes symptomatic Dispo: Stable, Will await PT recommendations. Placement will be large barrier because he is unfunded. Will monitor. <Ren Navarrete - Last Filed: 02/03/18 08:26> Attending Addendum - Attending Addendum Date/Time: 02/03/18 1032 I personally evaluated the patient and discussed the management with Dr. Navarrete. I agree with the History, Examination, Assessment and Plan documented above with any addition or exceptions noted below. Patient stable. Pain control regimen escalated by Ortho and we appreciate that. Continue IV abx until cultures result and then tailor per ID recs. Will be a placement issue due to his current disability and lack of funding. Will work with CM on that. Would like to repeat UDS today to ensure he is appropriately positive (opiates) in case of any concern in future time of drug use during hospitalization. <Zhao Castellanos - Last Filed: 02/03/18 10:33>
[2018-02-03] MEDS: tiZANidine HCl 4 MG TAB PO SCH ×3 (08:11→20:30)
[2018-02-03] MEDS: Vancomycin HCl 1.5 GM in Sodium Chloride 0.9% 250 ML 300 ML IVPB SCH ×2 (08:11→20:40)
[2018-02-03] MEDS: Lactated Ringer's 1,000 ML IV SCH (17:17)
[2018-02-03 20:30] LABS: Vancomycin, Trough 17.9 ug/mL
[2018-02-03] MEDS: Enoxaparin Sodium 40 MG/0.4 ML SYRINGE SC SCH (20:33)
[2018-02-04] MEDS: Lactated Ringer's 1,000 ML IV SCH ×3 (00:58→18:43)
[2018-02-04] MEDS: Ketorolac Tromethamine 30 MG/ML VIAL IVP PRN ×4 (03:58→23:34)
[2018-02-04] MEDS: HYDROcodone/Acetaminophen 10/325 mg Tablet PO PRN ×4 (03:59→18:37)
[2018-02-04 04:48] LABS: Amphetamine Detected (NotDetected); Barbiturates Screen Not Detected (NotDetected); Benzodiazepine Screen Not Detected (NotDetected); Cocaine Metabolite Screen Not Detected (NotDetected); Medtox Control Line Valid? VALID (VALID); Medtox Reader # READER 4; Methadone Not Detected (NotDetected); Methamphetamine Detected (NotDetected); Opiate Screen Detected (NotDetected); Oxycodone Screen Not Detected (NotDetected); Phencyclidine (PCP) Not Detected (NotDetected); THC/Cannabinoid Screen Not Detected (NotDetected); Tricyclic Screen Not Detected (NotDetected)
[2018-02-04] MEDS: Piperacillin/Tazobactam 4.5 GM in Sodium Chloride 0.9% 100 ML IVPB SCH ×4 (05:20→23:34)
--- NOTE | 2018-02-04 08:01 | PDOC.FM ---
- Subjective Subjective: Patient had good night. Better pain control overnight. Has not figured out his ADL plan upon discharge. He denies fevers, chills, n/v/d. No other complaints this morning. - Objective Vital Signs & Weight: Vital Signs (12 hours) Temp Pulse Resp BP Pulse Ox 02/04/18 07:43 98.1 F 75 16 109/68 97 02/03/18 20:00 98.5 F 83 18 97 Weight Weight 83.007 kg I&O: 02/03/18 02/04/18 02/05/18 06:59 06:59 06:59 Intake Total 1840 2640 Output Total 860 940 Balance 980 1700 Result Diagrams: 02/02/18 21:43 02/02/18 21:43 <Ren Navarrete - Last Filed: 02/04/18 07:59> - Objective Vital Signs & Weight: Vital Signs (12 hours) Temp Pulse Resp BP Pulse Ox 02/04/18 07:43 98.1 F 75 16 109/68 97 Weight Weight 83.007 kg I&O: 02/03/18 02/04/18 02/05/18 06:59 06:59 06:59 Intake Total 1840 2640 Output Total 860 940 Balance 980 1700 Result Diagrams: 02/02/18 21:43 02/02/18 21:43 <Zhao Castellanos - Last Filed: 02/04/18 09:50> Phys Exam - Physical Examination HEENT: moist MMs Neck: no nodes Respiratory: no wheezing, clear to auscultation bilateral Cardiovascular: RRR, no significant murmur Gastrointestinal: soft, non-tender, no distention, positive bowel sounds Musculoskeletal: no edema, pulses present Neurological: non-focal, normal sensation Resistent to movement to RLE Lymphatic: no nodes Psychiatric: normal affect, A&O x 3 Skin: no rash <Ren Navarrete - Last Filed: 02/04/18 07:59> Dx/Plan (1) Osteomyelitis of right hip Code(s): M86.9 - OSTEOMYELITIS, UNSPECIFIED Status: Acute (2) Iliopsoas abscess on right Code(s): K68.12 - PSOAS MUSCLE ABSCESS Status: Acute (3) Right inguinal hernia Code(s): K40.90 - UNIL INGUINAL HERNIA, W/O OBST OR GANGR, NOT SPCF RECUR Status: Chronic (4) Polysubstance abuse Code(s): F19.10 - OTHER PSYCHOACTIVE SUBSTANCE ABUSE, UNCOMPLICATED Status: Chronic (5) Tobacco abuse Code(s): Z72.0 - TOBACCO USE Status: Chronic - Plan Plan: Right psoas abscess - 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 - Dr. Casas consulted, appreciate his rec. - Blood cultures no growth to date - Abscess cultures growing Staph Aureas, sensitivities and final cultures pending Right hip osteomyelitis - Suspected based on CT findings - ESR 100 on admission - Ortho consulted; appreciate recs - S/P resection of femoral head - Continue IV broad spectrum antibiotics, Dr. Diaz recommends antibiotics ( Rocephin) until 04/01 as outpatient at this time. - Pain control with opiates at this time with caution due to heroin addiction - Tylenol, Ibuprofen, Toradol, [place] available for pain. - Ortho added Zanaflex and Morphine to regimen Polysubstance abuse - IV use of heroin - UDS positive for opiates and amphetamines x2 - HIV and RPR negative - Counseled on need to quit. Inguinal hernia - asymptomatic - Will consult General Surgery if patient becomes symptomatic Dispo: Stable, Will await surgical clearance and then options for outpatient antibiotic therapy and physical therapy. <Ren Navarrete - Last Filed: 02/04/18 07:59> Attending Addendum - Attending Addendum Date/Time: 02/04/18 0948 I personally evaluated the patient and discussed the management with Dr. Navarrete. I agree with the History, Examination, Assessment and Plan documented above with any addition or exceptions noted below. Patient feels better this morning. Contine opiate pain control and PT per Ortho. Abx to continue and will need routine vanc troughs checked to ensure no toxicity. No other active issues at this time. <Zhao Castellanos - Last Filed: 02/04/18 09:50>
[2018-02-04] MEDS: tiZANidine HCl 4 MG TAB PO SCH ×3 (08:56→20:22)
[2018-02-04] MEDS: Vancomycin HCl 1.5 GM in Sodium Chloride 0.9% 250 ML 300 ML IVPB SCH ×2 (08:59→20:22)
[2018-02-04] MEDS: Enoxaparin Sodium 40 MG/0.4 ML SYRINGE SC SCH (20:22)
[2018-02-05] MEDS: HYDROcodone/Acetaminophen 10/325 mg Tablet PO PRN ×4 (04:16→18:31)
[2018-02-05] MEDS: Lactated Ringer's 1,000 ML IV SCH ×4 (04:18→21:09)
[2018-02-05] MEDS: Piperacillin/Tazobactam 4.5 GM in Sodium Chloride 0.9% 100 ML IVPB SCH ×2 (05:32→12:50)
[2018-02-05] MEDS: Ketorolac Tromethamine 30 MG/ML VIAL IVP PRN (05:35)
--- NOTE | 2018-02-05 06:42 | PDOC.FM ---
- Subjective Subjective: Patient feels better. His pain is well controlled. He does not have a plan for discharge at this time. He is still currently waiting for social security disability benefits at this time. He denies any new complaints this morning. - Objective Vital Signs & Weight: Vital Signs (12 hours) Temp Pulse Resp BP Pulse Ox 02/04/18 21:40 97.6 F 76 18 99 02/04/18 19:57 97.6 F 76 18 126/80 99 Weight Weight 83.007 kg I&O: 02/03/18 02/04/18 02/05/18 06:59 06:59 06:59 Intake Total 1840 2640 4214 Output Total 949 517 1049 Balance 980 1700 3128 Result Diagrams: 02/02/18 21:43 02/02/18 21:43 <Rne Navarrete - Last Filed: 02/05/18 07:16> - Objective Vital Signs & Weight: Vital Signs (12 hours) Temp Pulse Resp BP Pulse Ox 02/05/18 07:20 98.5 F 76 16 143/94 H 98 Weight Weight 83.007 kg I&O: 02/04/18 02/05/18 02/06/18 06:59 06:59 06:59 Intake Total 2640 4214 Output Total 940 1786 Balance 1700 2428 Result Diagrams: 02/02/18 21:43 02/02/18 21:43 <Zhao Castellanos - Last Filed: 02/05/18 10:44> Phys Exam - Physical Examination HEENT: PERRLA, moist MMs Neck: no nodes Respiratory: no wheezing, clear to auscultation bilateral Cardiovascular: RRR, no significant murmur Gastrointestinal: soft, non-tender, no distention, positive bowel sounds Musculoskeletal: no edema, pulses present Neurological: non-focal, normal sensation Resistant to movement of RLE Lymphatic: no nodes Psychiatric: normal affect, A&O x 3 Skin: no rash <Ren Navarrete - Last Filed: 02/05/18 07:16> Dx/Plan (1) Osteomyelitis of right hip Code(s): M86.9 - OSTEOMYELITIS, UNSPECIFIED Status: Acute (2) Iliopsoas abscess on right Code(s): K68.12 - PSOAS MUSCLE ABSCESS Status: Acute (3) Right inguinal hernia Code(s): K40.90 - UNIL INGUINAL HERNIA, W/O OBST OR GANGR, NOT SPCF RECUR Status: Chronic (4) Polysubstance abuse Code(s): F19.10 - OTHER PSYCHOACTIVE SUBSTANCE ABUSE, UNCOMPLICATED Status: Chronic (5) Tobacco abuse Code(s): Z72.0 - TOBACCO USE Status: Chronic - Plan Plan: Right psoas abscess - 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 - Dr. Casas consulted, appreciate his rec. - Blood cultures no growth to date - Abscess cultures growing Staph Aureas, Rocephin sensitive. Will de-escalate therapy to that. Right hip osteomyelitis - Suspected based on CT findings - ESR 100 on admission - Ortho consulted; appreciate recs - S/P resection of femoral head - Continue IV broad spectrum antibiotics, Dr. Diaz recommends antibiotics ( Rocephin) until 04/01 as outpatient at this time. - Pain control with opiates at this time with caution due to heroin addiction - Tylenol, Ibuprofen, Toradol, [place] available for pain. - Ortho added Zanaflex and Morphine to regimen Polysubstance abuse - IV use of heroin - UDS positive for opiates and amphetamines x2 - HIV and RPR negative - Counseled on need to quit. - Admitted to use during hospitalization, have restricted visitation at this time. Inguinal hernia - asymptomatic - Will consult General Surgery if patient becomes symptomatic Dispo: Stable, Will await surgical clearance and then options for outpatient antibiotic therapy and physical therapy. <Ren Navarrete - Last Filed: 02/05/18 07:16> Attending Addendum - Attending Addendum Date/Time: 02/05/18 1043 I personally evaluated the patient and discussed the management with Dr. Navarrete. I agree with the History, Examination, Assessment and Plan documented above with any addition or exceptions noted below. Patient to be transitioned to Rocephin for abx based on bacterial cultures and ID recs. 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 Continue pain control and PT per Ortho recs. Patient admitted yesterday to using illicit drugs during hospitalization and he was been informed that if noted again he will be taken to long term. Security aware, and we will attempt to restrict visitors to his room. Recheck labs tomorrow. <Zhao Castellanos R - Last Filed: 02/05/18 10:44>
[2018-02-05] MEDS: tiZANidine HCl 4 MG TAB PO SCH ×3 (09:23→21:00)
[2018-02-05] MEDS: Vancomycin HCl 1.5 GM in Sodium Chloride 0.9% 250 ML 300 ML IVPB SCH (09:32)
[2018-02-05] MEDS: cefTRIAXone\\ROCEPHIN 2 GM in Sodium Chloride 0.9% 100 ML IVPB SCH (14:07)
[2018-02-05] MEDS: Ibuprofen 800 MG TAB PO PRN ×2 (15:31→21:14)
[2018-02-05] MEDS: Enoxaparin Sodium 40 MG/0.4 ML SYRINGE SC SCH (21:00)
[2018-02-06] MEDS: HYDROcodone/Acetaminophen 10/325 mg Tablet PO PRN ×5 (01:11→21:49)
[2018-02-06 04:49] LABS: ALT (SGPT) 7 U/L (8-55); AST (SGOT) 11 U/L (5-34); Albumin 2.7 g/dL (3.5-5.0); Alkaline Phosphatase 44 U/L (40-150); Anion Gap 11 mmol/L (10-20); BUN (Urea Nitrogen) 7 mg/dL (8.9-20.6); Bilirubin, Total 0.3 mg/dL (0.2-1.2); Calc. Creatinine Clearance 133 mL/min (70-130); Calcium 8.5 mg/dL (7.8-10.44); Carbon Dioxide 24 mmol/L (22-29); Chloride 109 mmol/L (98-107); Estimated GFR-MDRD Greater than 90; Globulin 3.5 g/dL (2.4-3.5); Glucose 87 mg/dL (70-105); Potassium 3.9 mmol/L (3.5-5.1); Protein, Total 6.2 g/dL (6.0-8.3); Sodium 140 mmol/L (136-145)
[2018-02-06 04:59] LABS: Eosinophils 7 % (0-10); Hemoglobin 7.8 g/dL (14.0-18.0); Lymphocytes 26 % (21-51); MDiff Complete? YES; Mean Corpuscular HGB CONC 32.4 g/dL (32.0-36.0); Mean Corpuscular Hemoglobin 25.9 pg (27.0-31.0); Mean Corpuscular Volume 79.8 fl (80.0-94.0); Monocytes 4 % (0-10); Neutrophil 63 % (42-75); Platelet Count 303 thou/uL (130-400); RBC Distribution Width 15.2 % (11.5-14.5); White Blood Cell (WBC) Count 6.7 thou/uL (4.8-10.8)
[2018-02-06] MEDS: Lactated Ringer's 1,000 ML IV SCH (05:15)
--- NOTE | 2018-02-06 07:37 | PDOC.FM ---
- Subjective Subjective: Patient continues to complain of out of control pain. He states that he isn't getting enough medicine and that he only wants to lay in bed from the pain. He was counseled on the need to reduce his opiate pain medication dosages because of his abuse history and the fact that he will not be going home on a substantial amount of opiates. He is advised to use some of the non-opiate pain medication for pain relief first. He has no other complaints this morning. - Objective Vital Signs & Weight: Vital Signs (12 hours) Temp Pulse Resp BP Pulse Ox 02/05/18 21:54 98.5 F 76 16 99 02/05/18 20:00 98.2 F 86 18 129/77 99 Weight Weight 83.007 kg I&O: 02/05/18 02/06/18 02/07/18 06:59 06:59 06:59 Intake Total 4214 2900 1500 Output Total 1801 2710 2508 Balance 2413 190 -1008 Result Diagrams: 02/06/18 04:24 02/06/18 04:24 <Ren Navarrete - Last Filed: 02/06/18 07:35> - Objective Vital Signs & Weight: Vital Signs (12 hours) Temp Pulse Resp BP Pulse Ox 02/06/18 07:59 98.1 F 76 18 157/86 H 98 Weight Weight 83.007 kg I&O: 02/05/18 02/06/18 02/07/18 06:59 06:59 06:59 Intake Total 4214 2900 1500 Output Total 1801 2710 2508 Balance 2413 190 -1008 Result Diagrams: 02/06/18 04:24 02/06/18 04:24 <Zhao Castellanos - Last Filed: 02/06/18 10:47> Phys Exam - Physical Examination HEENT: moist MMs Neck: no nodes Respiratory: no wheezing, clear to auscultation bilateral Cardiovascular: RRR, no significant murmur Gastrointestinal: soft, non-tender, no distention, positive bowel sounds Musculoskeletal: no edema, pulses present Neurological: non-focal, normal sensation RLE resistent to movement due to pain Psychiatric: normal affect, A&O x 3 Skin: no rash <Ren Navarrete - Last Filed: 02/06/18 07:35> Dx/Plan (1) Osteomyelitis of right hip Code(s): M86.9 - OSTEOMYELITIS, UNSPECIFIED Status: Acute (2) Iliopsoas abscess on right Code(s): K68.12 - PSOAS MUSCLE ABSCESS Status: Acute (3) Right inguinal hernia Code(s): K40.90 - UNIL INGUINAL HERNIA, W/O OBST OR GANGR, NOT SPCF RECUR Status: Chronic (4) Polysubstance abuse Code(s): F19.10 - OTHER PSYCHOACTIVE SUBSTANCE ABUSE, UNCOMPLICATED Status: Chronic (5) Tobacco abuse Code(s): Z72.0 - TOBACCO USE Status: Chronic - Plan Plan: Right psoas abscess - 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 Casas consulted, appreciate his rec. s/p surgery - Blood cultures no growth. - Abscess cultures growing Staph Aureas, Rocephin sensitive. Will de-escalate therapy to that. Right hip osteomyelitis - Ortho consulted; appreciate recs - S/P resection of femoral head - Rocephin /12 daily until 04/01 - Pain control with opiates at this time with caution due to heroin addiction - Tylenol, Ibuprofen, Toradol, [place] available for pain. - Ortho added Zanaflex and Morphine to regimen. Encouraged to use non-opiate medications. Polysubstance abuse - IV use of heroin - UDS positive for opiates and amphetamines x2 - HIV and RPR negative - Counseled on need to quit. - Admitted to use during hospitalization, have restricted visitation at this time. Inguinal hernia - asymptomatic - Will consult General Surgery if patient becomes symptomatic Dispo: Stable, continue current plan of care. <Ren Navarrete - Last Filed: 02/06/18 07:35> Attending Addendum - Attending Addendum Date/Time: 02/06/18 1046 I personally evaluated the patient and discussed the management with Dr. Navarrete. I agree with the History, Examination, Assessment and Plan documented above with any addition or exceptions noted below. Patient stable. Continue pain control and needs to participate with PT. 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 <Zhao Castellanos - Last Filed: 02/06/18 10:47>
[2018-02-06] MEDS: Ibuprofen 800 MG TAB PO PRN (09:17)
[2018-02-06] MEDS: tiZANidine HCl 4 MG TAB PO SCH ×3 (09:17→20:33)
[2018-02-06] MEDS: cefTRIAXone\\ROCEPHIN 2 GM in Sodium Chloride 0.9% 100 ML IVPB SCH (14:09)
[2018-02-06] MEDS: Enoxaparin Sodium 40 MG/0.4 ML SYRINGE SC SCH ×2 (20:33→21:54)
[2018-02-07] MEDS: HYDROcodone/Acetaminophen 10/325 mg Tablet PO PRN ×4 (01:49→17:42)
[2018-02-07] MEDS: Ibuprofen 800 MG TAB PO PRN ×2 (05:18→20:29)
--- NOTE | 2018-02-07 06:24 | PDOC.FM ---
- Subjective Subjective: Patient had a good night. He still complains of inadequate pain control. He has been counseled on likely being discharged at some point this week for follow up in one month for his next surgery. He denies any other complaints this morning. - Objective Vital Signs & Weight: Vital Signs (12 hours) Temp Pulse Resp BP Pulse Ox 02/06/18 20:17 99.4 F 82 18 146/80 H 98 02/06/18 20:00 99.4 F 82 18 Weight Weight 83.007 kg I&O: 02/05/18 02/06/18 02/07/18 06:59 06:59 06:59 Intake Total 4214 2900 4000 Output Total 1801 6370 5460 Balance 2411 190 -9551 Result Diagrams: 02/06/18 04:24 02/06/18 04:24 Phys Exam - Physical Examination Constitutional: NAD HEENT: moist MMs Neck: no nodes Respiratory: no wheezing, clear to auscultation bilateral Cardiovascular: RRR, no significant murmur Gastrointestinal: soft, non-tender, no distention, positive bowel sounds Musculoskeletal: no edema, pulses present Neurological: non-focal, normal sensation Improved movement of RLE Lymphatic: no nodes Psychiatric: normal affect, A&O x 3 Skin: no rash Dx/Plan (1) Osteomyelitis of right hip Code(s): M86.9 - OSTEOMYELITIS, UNSPECIFIED Status: Acute (2) Iliopsoas abscess on right Code(s): K68.12 - PSOAS MUSCLE ABSCESS Status: Acute (3) Right inguinal hernia Code(s): K40.90 - UNIL INGUINAL HERNIA, W/O OBST OR GANGR, NOT SPCF RECUR Status: Chronic (4) Polysubstance abuse Code(s): F19.10 - OTHER PSYCHOACTIVE SUBSTANCE ABUSE, UNCOMPLICATED Status: Chronic (5) Tobacco abuse Code(s): Z72.0 - TOBACCO USE Status: Chronic - Plan Plan: Right psoas abscess - 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 Casas consulted, appreciate his rec. s/p surgery - Blood cultures no growth. - Abscess cultures growing Staph Aureas, Rocephin sensitive. Will de-escalate therapy to that. - Begin discharge planning for outpatient antibiotics per Dr. Diaz Right hip osteomyelitis - Ortho consulted; appreciate recs - S/P resection of femoral head - Rocephin 02/05 daily until 04/01 - Pain control with opiates at this time with caution due to heroin addiction - Tylenol, Ibuprofen, Toradol, [place] available for pain. - Ortho added Zanaflex and Morphine to regimen. Encouraged to use non-opiate medications. Polysubstance abuse - IV use of heroin - UDS positive for opiates and amphetamines x2 - HIV and RPR negative - Counseled on need to quit. - Admitted to use during hospitalization, have restricted visitation at this time. Inguinal hernia - asymptomatic - Will consult General Surgery if patient becomes symptomatic Dispo: Stable, continue current plan of care and continue working for discharge.
[2018-02-07] MEDS: tiZANidine HCl 4 MG TAB PO SCH ×3 (07:19→20:28)
[2018-02-07] MEDS: cefTRIAXone\\ROCEPHIN 2 GM in Sodium Chloride 0.9% 100 ML IVPB SCH (13:47)
--- NOTE | 2018-02-07 14:27 | ADD-PRG ---
DATE OF SERVICE: 02/07/2018 Please add this as an addendum to the note of Dr. Ren Navarrete. Mr. Jeffries has a history of substance abuse and has an osteomyelitis of his right hip. He has alrea dy been seen by Dr. Diaz, who has recommended long-term intravenous antibiotics. We are waiting for arrangements to be made for him to have long-term outpatient antibiotics. Clinically stable.
[2018-02-07] MEDS: Enoxaparin Sodium 40 MG/0.4 ML SYRINGE SC SCH (22:00)
[2018-02-08] MEDS: HYDROcodone/Acetaminophen 10/325 mg Tablet PO PRN ×4 (00:26→17:32)
[2018-02-08] MEDS: Ibuprofen 800 MG TAB PO PRN ×3 (03:21→16:07)
--- NOTE | 2018-02-08 06:43 | PDOC.FM ---
- Subjective Subjective: Patient states pain is under better control. He is ready to get out of the hospital. He states that he can be successful at home. No other complaints today. - Objective Vital Signs & Weight: Vital Signs (12 hours) Temp Pulse Resp BP Pulse Ox 02/08/18 04:00 97.9 F 74 16 144/89 H 99 02/08/18 00:00 98.1 F 76 16 144/87 H 99 02/07/18 20:00 98.1 F 76 16 145/90 H 98 Weight Weight 83.007 kg I&O: 02/06/18 02/07/18 02/08/18 06:59 06:59 06:59 Intake Total 2900 4000 1080 Output Total 2710 5479 10 Balance 190 -3299 1070 Result Diagrams: 02/06/18 04:24 02/06/18 04:24 Phys Exam - Physical Examination HEENT: moist MMs Neck: no nodes Respiratory: no wheezing Cardiovascular: RRR, no significant murmur Gastrointestinal: soft, non-tender, no distention, positive bowel sounds Musculoskeletal: no edema, pulses present Neurological: non-focal RLE resistent to movement due to pain. However, increased motion of R foot Lymphatic: no nodes Psychiatric: normal affect, A&O x 3 Skin: no rash Dx/Plan (1) Osteomyelitis of right hip Code(s): M86.9 - OSTEOMYELITIS, UNSPECIFIED Status: Acute (2) Iliopsoas abscess on right Code(s): K68.12 - PSOAS MUSCLE ABSCESS Status: Acute (3) Right inguinal hernia Code(s): K40.90 - UNIL INGUINAL HERNIA, W/O OBST OR GANGR, NOT SPCF RECUR Status: Chronic (4) Polysubstance abuse Code(s): F19.10 - OTHER PSYCHOACTIVE SUBSTANCE ABUSE, UNCOMPLICATED Status: Chronic (5) Tobacco abuse Code(s): Z72.0 - TOBACCO USE Status: Chronic - Plan Plan: Right psoas abscess - 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 Casas consulted, appreciate his rec. s/p surgery. To return for surgery in February 2018 for hip prosthetic placement. - Will confirm with Dr. Casas for scheduling. - Blood cultures no growth. - Abscess cultures growing Staph Aureas, Rocephin sensitive. Will de-escalate therapy to that. - Begin discharge planning for outpatient antibiotics per Dr. Diaz Right hip osteomyelitis - Ortho consulted; appreciate recs - S/P resection of femoral head - Rocephin / daily until 04/01 - Pain control with opiates at this time with caution due to heroin addiction - Tylenol, Ibuprofen, Toradol, [place] available for pain. - Ortho added Zanaflex and Morphine to regimen. Encouraged to use non-opiate medications. Polysubstance abuse - IV use of heroin - UDS positive for opiates and amphetamines x2 - HIV and RPR negative - Counseled on need to quit. - Admitted to use during hospitalization, have restricted visitation at this time. Inguinal hernia - asymptomatic - Will consult General Surgery if patient becomes symptomatic Dispo: Stable, continue current plan of care and continue working for discharge.
[2018-02-08] MEDS: tiZANidine HCl 4 MG TAB PO SCH ×3 (09:28→20:53)
--- NOTE | 2018-02-08 13:28 | ADD-PRG ---
DATE OF SERVICE: 02/08/2018 This is an addendum to the note of Dr. Ren Navarrete. Mr. Jeffries is offering no new complaints this morning. We are awaiting placement and arrangements f or his long-term intravenous antibiotic therapy for osteomyelitis of his hip. Clinically, he remains improved though deconditioned. We have encouraged a bedside chair, walking in the hallway and walki ng outside.
[2018-02-08] MEDS: cefTRIAXone\\ROCEPHIN 2 GM in Sodium Chloride 0.9% 100 ML IVPB SCH (14:44)
[2018-02-08] MEDS: Enoxaparin Sodium 40 MG/0.4 ML SYRINGE SC SCH (20:54)
[2018-02-09] MEDS: Ibuprofen 800 MG TAB PO PRN ×2 (00:43→08:25)
[2018-02-09] MEDS: HYDROcodone/Acetaminophen 10/325 mg Tablet PO PRN ×2 (03:54→09:59)
--- NOTE | 2018-02-09 06:27 | PDOC.FM ---
- Subjective Subjective: Unchanged this AM. Patient states the pain is improved. He is ready to go home. No other complaints. - Objective Vital Signs & Weight: Vital Signs (12 hours) Temp Pulse Resp BP Pulse Ox 02/09/18 04:00 98.0 F 74 16 124/74 98 02/09/18 00:00 98.1 F 75 16 130/82 99 02/08/18 20:00 99.2 F 81 16 127/76 99 Weight Weight 83.007 kg I&O: 02/07/18 02/08/18 02/09/18 06:59 06:59 06:59 Intake Total 4000 1080 1060 Output Total 5479 310 700 Balance -1479 770 360 Result Diagrams: 02/06/18 04:24 02/06/18 04:24 Phys Exam - Physical Examination Constitutional: NAD HEENT: moist MMs Neck: no nodes Respiratory: no wheezing, clear to auscultation bilateral Cardiovascular: RRR, no significant murmur Gastrointestinal: soft, non-tender, no distention, positive bowel sounds Musculoskeletal: no edema, pulses present Neurological: non-focal, normal sensation, moves all 4 limbs Lymphatic: no nodes Psychiatric: normal affect, A&O x 3 Skin: no rash Dx/Plan (1) Osteomyelitis of right hip Code(s): M86.9 - OSTEOMYELITIS, UNSPECIFIED Status: Acute (2) Iliopsoas abscess on right Code(s): K68.12 - PSOAS MUSCLE ABSCESS Status: Acute (3) Right inguinal hernia Code(s): K40.90 - UNIL INGUINAL HERNIA, W/O OBST OR GANGR, NOT SPCF RECUR Status: Chronic (4) Polysubstance abuse Code(s): F19.10 - OTHER PSYCHOACTIVE SUBSTANCE ABUSE, UNCOMPLICATED Status: Chronic (5) Tobacco abuse Code(s): Z72.0 - TOBACCO USE Status: Chronic - Plan Plan: Right psoas abscess - 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 Casas consulted, appreciate his rec. s/p surgery. To return for surgery in February 2018 for hip prosthetic placement. - Will confirm with Dr. Casas for scheduling. - Blood cultures no growth. - Abscess cultures growing Staph Aureas, Rocephin sensitive. Will de-escalate therapy to that. - Begin discharge planning for outpatient antibiotics per Dr. Diaz Right hip osteomyelitis - Ortho consulted; appreciate recs - S/P resection of femoral head - Rocephin 5/12 daily until 04/01 - Pain control with opiates at this time with caution due to heroin addiction - Tylenol, Ibuprofen, Toradol, [place] available for pain. - Ortho added Zanaflex and Morphine to regimen. Encouraged to use non-opiate medications. - Coordinate discharge and return for 2nd surgery with Dr. Casas Polysubstance abuse - IV use of heroin - UDS positive for opiates and amphetamines x2 - HIV and RPR negative - Counseled on need to quit. - Admitted to use during hospitalization, have restricted visitation at this time. Inguinal hernia - asymptomatic - Will consult General Surgery if patient becomes symptomatic Dispo: Stable, continue current plan of care and continue working for discharge.
[2018-02-09] MEDS: tiZANidine HCl 4 MG TAB PO SCH (08:25)
[2018-02-09 12:01] VITALS: BP 118/74; TEMP 98.5
[2018-02-09] MEDS: cefTRIAXone\\ROCEPHIN 2 GM in Sodium Chloride 0.9% 100 ML IVPB SCH (12:11)
--- NOTE | 2018-02-09 12:46 | PRG ---
DATE OF SERVICE: 02/09/2018 This is an addendum to the note of Dr. Ren Navarrete. Mr. Jeffries is resting quietly in no distress. Arrangements have been made for him to receive outpat ient IV drug therapy and to follow up with Orthopedics. He will therefore be discharged today after these arrangements are made.
--- NOTE | 2018-02-10 13:11 | DIS-2 ---
DATE OF ADMISSION: 01/30/2018 DATE OF DISCHARGE: 02/09/2018 RESIDENT: Ren Navarrete MD ADMITTING ATTENDING: Arianne Birmingham MD DISCHARGE ATTENDING: Armando Brian MD CONSULTS: 1. Infectious Disease, Dr. Diaz. 2. Orthopedics, Dr. Casas. 3. Case management. PROCEDURES: The patient underwent abdominal pelvis CT on 01/30/2018 that showed large right inguinal hernia with colon and small bowel hernia into the scrotum. This appears to be producing a low grade small-bowel obstruction. Right hip effusion with loculated fluid collection adjacent to the right hip joint and the iliopsoas muscle and iliacus muscle similar to prior exam on 09/08/2017. Erosive and cystic change of the hip joint are again noted and appear stable. On 02/01/2018, the patient underwent an irrigation and debridement of the right hip, resection of the right femoral head, antibiotic spacer placement to the right hip, irrigation and debridement of pelvic abscess. On 02/01/2018, the patient underwent a pelvis x-ray that showed postoperative resection of the right femoral head. PRIMARY DIAGNOSES: 1. Osteomyelitis of the right hip. 2. Iliopsoas abscess of the right hip. 3. Right inguinal hernia. 4. Polysubstance abuse. 5. Tobacco abuse. DISCHARGE MEDICATIONS: 1. [place] Rio 10/325 mg 1 tab p.o. q.4 hours p.r.n. #84. 2. Ibuprofen 800 mg p.o. q.6 hours p.r.n. 3. Tizanidine 4 mg p.o. t.i.d. 4. Rocephin 1 gram daily until 04/01. DISCONTINUED MEDICATIONS: None. HISTORY OF PRESENT ILLNESS AND HOSPITAL COURSE: The patient is a 47-year-old male with past medical history of IV drug use and right iliopsoas abscess with prolonged antibiotic course, who presents for recurrence of right hip pain. Patient states he has been on antibiotics since hospitalization 2016 at which time he was diagnosed with bursa psoas abscess and underwent drainage by IR. patient was seen by Dr. Diaz during the hospitalization, started on Rocephin as an outpatient. He was then transitioned to Keflex, which he was taken t.i.d. until a week ago. After stopping antibiotics, patient notes that his right leg pain returned much worse than it had been. The pain has been progressing, and it was associated with temperature of 101 degrees yesterday. The patient endorses IV heroin use for pain, although it is suspected that the IV drug abuse was a side impact of the abscess formation in the first place. He states that he uses heroin because he cannot get any doctor give him pain medication. Per records, the patient has been on Suboxone treatment program in the past and indicating that heroin abuse started before his hospitalization in August. He does endorse using clean needles and does not share needles. He has had difficulty weightbearing on his right leg due to pain. Patient also has a scrotal hernia that has been present for the last 4 years. He does not have funding to be able to have surgical repair. Patient denies any history of constipation, diarrhea, or decreased flatus. His last BM was yesterday. In the ER, the patient was given 1 gram of Rocephin, 1 gram of vancomycin for the psoas abscess and 30 mg IV Toradol for pain. During this hospitalization, the patient was found to have a nonviable femoral head and had to have a resection with Dr. Casas, Orthopedics. Patient has had extensive antibiotic history in the past, so Dr. Diaz with Infectious Disease was consulted for further management. The patient had some blood cultures that were negative for any growth; however, the patient did have bacterial cultures of his hip tissue and inner pelvis, that did grow out methicillin sensitive Staph aureus. Those 2 growths were sensitive to Rocephin and the patient's antibiotics were then deescalated down to Rocephin daily, to be continued for 2 months. Patient had hemoglobin that ranged from 11.0 that trended down to 7.8, to be expected after the surgical procedure. The patient was syphilis and HIV negative. Patient did endorse a polysubstance abuse and stated that he does use more than just IV heroin. His urine drug screen on admission showed opiates as well as amphetamines present. The patient was tested again 4 days later and again had opiates and methamphetamines present in his UDS. Patient then admitted that he used at least IV heroin during the hospitalization that his friend brought up to give pain relief. The patient was advised that he could no longer use IV heroin as his infection could return , could become worse, and the result is he could lose his leg if the infection progresses. The patient had visitation restricted at that time because of the polysubstance abuse following in the hospital. The patient was seen by physical therapy and was evaluated for qualification into a rehab facility; however, the physical therapist felt that he would be successful if he returned home with good family support. Patient was able to become mobile and began to walk with crutches and at that time, it was decided that the patient was ready for discharge. Patient did undergo extensive case management evaluation for his outpatient antibiotics and for further physical therapy with support. The patient is totally unfunded and so would be very difficult for him to afford those medications and those treatments; however, he was not willing to give up his polysubstance abuse. The patient was accepted for outpatient antibiotics because of his recent polysubstance abuse, he was not given a PICC line and he will have to have injections or intravenous access obtained every time he goes to the hospital because of his prior history. Patient otherwise began to recover well and had no further complications. Dr. Casas would like to see this patient in 10 days, take out his stitches and then he also like to return in 6 weeks after his antibiotic course to have the second surgery to remove the antibiotic compound and to replace it with a hip prosthesis. Dr. Diaz with Infectious Disease would like to keep this patient on 2 months of antibiotics and so coordination of care between Dr. Casas and Dr. Diaz will happen as an outpatient. Otherwise, the patient tolerated the hospitalization well and had no further complications and was discharged on appropriate condition. DISPOSITION: Stable. DISCHARGE INSTRUCTIONS: 1. Location: The patient will be discharged to home in the care of himself and his family. 2. Diet will be as tolerated with no restrictions. 3. Activity will be obviously with orthopedic limitations as he is nonweightbearing on his right side. 4. Follow up will be with Dr. Tanner Casas, Orthopedics in 10 days [address]. Diaz in the [facility] for antibiotic treatment to be in 1 day and with further coordination of care to occur between those two specialists as an outpatient. We wish this paloma the best of luck and hope he has no further complications because of this condition. [facility] [place] DIVISIONSonja
== END 2018-02-09 13:35 | disposition home or self-care (01) | DRG 480 ==
LOC: ERS 18:25 → T4-B 23:24
PROVIDERS: ADMIT Student in an Organized Health Care Education/Training Program; ATTEND Student in an Organized Health Care Education/Training Program
PROC: 0QT60ZZ Resection of Right Upper Femur, Open Approach (ICD-10-PCS; principal; 2018-02-01)
PROC: 0KBN0ZZ Excision of Right Hip Muscle, Open Approach (ICD-10-PCS; 2018-02-01)
PROC: 0SH908Z Insertion of Spacer into Right Hip Joint, Open Approach (ICD-10-PCS; 2018-02-01)
DX: M00.051 Staphylococcal arthritis, right hip (principal); K68.12 Psoas muscle abscess; M86.8X5 Other osteomyelitis, thigh; F11.20 Opioid dependence, uncomplicated; K40.90 Unilateral inguinal hernia, without obstruction or gangrene, not specified as recurrent; B95.62 Methicillin resistant Staphylococcus aureus infection as the cause of diseases classified elsewhere; F19.10 Other psychoactive substance abuse, uncomplicated; F15.10 Other stimulant abuse, uncomplicated; Z87.891 Personal history of nicotine dependence
CPT/HCPCS: 36415; 72170; 74177; 80048; 80053; 80202; 80306; 83605; 85025; 85652; 86140; 86780; 87040; 87070; 87077; 87186; 87205; 87389; 88305; 88311; 96365; 96375; A4216; C1713; G8978-GP-CI; G8979-GP-CI; G8980-GP-CI; J0696; J1170; J1650; J1885; J2001; J2270; J2543; J2704; J3010; J3260; J3370; J7050

== ENCOUNTER 2018-05-19 19:54 | Inpatient (IN) | payer SELFPAY ==
[~2018-05-19 19:54] MED LIST changes: -ISOVUE-370 76%-LOCM 1 ML ONE; +Ketorolac Tromethamine 30 MG/ML VIAL ONE; +Lidocaine 1% PF 5 ML VIAL ONE; +Ondansetron HCl/PF 4 MG/2 ML Vial ONE; +PROPOFOL 200 MG/20 ML VIAL ONE; +Succinylcholine Chloride 20 MG/ML 10 ml SYRINGE FS ONE
[2018-05-19] MEDS ORDERED: Morphine 4 MG/ML VIAL ONE (20:53)
[2018-05-19] MEDS ORDERED: Ondansetron HCl/PF 4 MG/2 ML Vial ONE (21:01)
[2018-05-19] MEDS ORDERED: CEFAZOLIN/Water 2 GM/20 ML SYRINGE ONE (21:21)
[2018-05-19 21:24] LABS: #Eosinphils 0.2 thou/uL (0.0-0.7); #Lymphocytes 1.6 thou/uL (1.20-3.40); #Monocytes 0.6 thou/uL (0.11-0.59); #Neutrophils 4.9 thou/uL (1.40-6.50); %Basophils 0.3 % (0.0-1.0); %Eosinophils 2.5 % (0.0-10.0); %Lymphocytes 22.3 % (21.0-51.0); %Monocytes 7.9 % (0.0-10.0); %Neutrophils 67.1 % (42.0-75.0); Hemoglobin 12.3 g/dL (14.0-18.0); Mean Corpuscular HGB CONC 32.9 g/dL (32.0-36.0); Mean Corpuscular Hemoglobin 26.2 pg (27.0-31.0); Mean Corpuscular Volume 79.5 fL (78.0-98.0); Mean Platelet Volume 7.1 fL (7.4-10.4); Platelet Count 231 thou/uL (130-400); Red Blood Cell (RBC) Count 4.69 mill/uL (4.70-6.10); White Blood Cell (WBC) Count 7.3 thou/uL (4.8-10.8)
[2018-05-19 21:50] LABS: ALT (SGPT) 8 U/L (8-55); AST (SGOT) 14 U/L (5-34); Albumin 3.8 g/dL (3.5-5.0); Alkaline Phosphatase 71 U/L (40-150); Anion Gap 12 mmol/L (10-20); BUN (Urea Nitrogen) 18 mg/dL (8.9-20.6); Bilirubin, Total 0.4 mg/dL (0.2-1.2); Calc. Creatinine Clearance 0 mL/min (70-130); Carbon Dioxide 27 mmol/L (22-29); Chloride 104 mmol/L (98-107); Estimated GFR-MDRD 76; Globulin 3.3 g/dL (2.4-3.5); Glucose 112 mg/dL (70-105); Potassium 3.9 mmol/L (3.5-5.1); Protein, Total 7.1 g/dL (6.0-8.3); Sodium 139 mmol/L (136-145)
[2018-05-19] MEDS ORDERED: Bupivacaine/Epinephrine 0.25% 30 ML VIAL ONE (21:55)
[2018-05-19] MEDS ORDERED: Lidocaine 2% 10 ML INJ ONE (21:55)
[2018-05-19] MEDS ORDERED: Bupivacaine PF 0.5% 30 ML VIAL ONE (21:55)
[2018-05-19] MEDS ORDERED: Fentanyl 250 MCG/5 ML VIAL ONE (21:57)
[2018-05-19] MEDS ORDERED: Ondansetron HCl/PF 4 MG/2 ML Vial IVP PRN ×2 (23:28→23:43)
[2018-05-19] MEDS ORDERED: Meperidine HCl/PF 25 MG/ML VIAL SLOW IVP PRN (23:28)
[2018-05-19] MEDS ORDERED: HYDROmorphone 2 MG/ML VIAL SLOW IVP PRN (23:28)
[2018-05-19] MEDS ORDERED: Promethazine HCl 25 MG/ML VIAL IM PRN ×2 (23:28→23:43)
[2018-05-19] MEDS ORDERED: Morphine Sulfate 2 MG/ML SYRINGE SLOW IVP PRN (23:28)
[2018-05-19] MEDS ORDERED: Promethazine HCl 25 MG/ML VIAL SLOW IVP PRN (23:28)
[2018-05-19] MEDS ORDERED: Fentanyl 100 MCG/2 ML VIAL ONE (23:36)
[2018-05-19] MEDS ORDERED: Dextrose 50% Abboject 50 ML SYRINGE SLOW IVP PRN (23:43)
[2018-05-19] MEDS ORDERED: hydrALAZINE 20 MG/ML VIAL SLOW IVP PRN (23:43)
[2018-05-19] MEDS ORDERED: HYDROcodone/Acetaminophen 10/325 mg Tablet PO PRN (23:43)
[2018-05-19] MEDS ORDERED: Dextrose 5% in Water 1,000 ML IV PRN (23:43)
[2018-05-19] MEDS ORDERED: Morphine 4 MG/ML VIAL SLOW IVP PRN (23:43)
[2018-05-19] MEDS ORDERED: Ketorolac Tromethamine 30 MG/ML VIAL IVP SCH (23:59)
[2018-05-20] MEDS: D5 1/2 NS w/20 mEq KCL 1,000 ML IV SCH ×3 (01:01→15:33)
--- NOTE | 2018-05-20 02:24 | HP ---
DATE OF ADMISSION: 05/19/2018 CHIEF COMPLAINT: Right groin pain. HISTORY OF PRESENT ILLNESS: This is a 47-year-old male with a known right inguinal hernia, who has h ad previous multiple visits to the [facility] for this hernia, now presents with much larger and more painful associated with abdominal pain. This started a couple days ago. He states t hat he previously was able to reduce it on his own. He has never been seen by a physician in the out patient setting in terms of general surgeon: No nausea or vomiting, although he is not hungry. Pain is described as 8/10 and sharp, especially when people push on it he says. PAST MEDICAL HISTORY: Denies. PAST SURGICAL HISTORY: Denies. MEDICINES TAKEN DAILY: None. ALLERGIES: No known drug allergies. SOCIAL HISTORY: Former smoker, former heavy drinker, but none in the last 4 years. REVIEW OF SYSTEMS: Ten system review of systems otherwise negative unless described above. PHYSICAL EXAMINATION: HEENT: Sclerae are anicteric. Oropharynx clear. NECK: No lymphadenopathy. CHEST: Clear. HEART: Regular rate and rhythm. ABDOMEN: Soft, nontender, nondistended. Examination of the right groin reveals there to be a large incarcerated hernia. Multiple attempts at reduction are unsuccessful. The patient is complaining of severe pain when attempts at reduction are performed. LABORATORY DATA: Pending. ASSESSMENT: Incarcerated right inguinal hernia. PLAN: Emergent right inguinal hernia repair with mesh. Risks, benefits, alternatives discussed. He gives consent. We will do this today.
[2018-05-20 02:47] VITALS: BMI 28.6
[2018-05-20] MEDS: Ketorolac Tromethamine 30 MG/ML VIAL IVP SCH ×3 (06:13→18:04)
[2018-05-20] MEDS: Famotidine 20 MG TAB PO SCH ×2 (08:51→20:40)
[2018-05-20] MEDS: Famotidine/PF 20 mg/2ml Vial SLOW IVP SCH (08:51)
--- NOTE | 2018-05-20 15:00 | PRG ---
DATE OF SERVICE: 05/20/2018 SUBJECTIVE: Postop day #1, incarcerated right inguinal hernia. Mr. Jeffries is complaining of pain. He has not been out of bed yet. He is limited due to crutches and nonweightbearing to his right hip from prior injury and hip repair. He is afebrile. Vital signs are stable. His abdomen is soft and nondistended. His wounds healing well. ASSESSMENT: Postop day #1 incarcerated right inguinal hernia. PLAN: Advance diet. Potentially home tomorrow.
[2018-05-20] MEDS: HYDROcodone/Acetaminophen 10/325 mg Tablet PO PRN ×2 (15:33→20:40)
[2018-05-21] MEDS: Famotidine/PF 20 mg/2ml Vial SLOW IVP SCH ×2 (00:30→11:31)
[2018-05-21] MEDS: Ketorolac Tromethamine 30 MG/ML VIAL IVP SCH ×2 (00:32→06:55)
[2018-05-21] MEDS: D5 1/2 NS w/20 mEq KCL 1,000 ML IV SCH (04:36)
--- NOTE | 2018-05-21 09:04 | DIS ---
DATE OF ADMISSION: 05/20/2018 DATE OF DISCHARGE: 05/21/2018 ADMIT DIAGNOSIS: Incarcerated strangulated right inguinal hernia. DISCHARGE DIAGNOSIS: Incarcerated strangulated right inguinal hernia. PROCEDURES: Incarcerated strangulated right inguinal repair with mesh by Dr. Brooks without complic ation. CONDITION AT DISCHARGE: Improved. STAFF: Johan Brooks M.D. HOSPITAL COURSE: On postop day 2, the patient is doing well. He is tolerating regular food, althoug h he is not real hungry. He has some mild swelling in the right groin. His wounds are clear. He spann s active bowel sounds. He is discharged to home. DISPOSITION: He will follow up with me in 2 weeks. Prescription for Far[place] given for pain. I also r ecommended ibuprofen or Aleve. He will do MiraLax or Milk of Magnesia if he is not having bowel move ments daily. He is able to be up and around. Activities as tolerated.
[2018-05-21] MEDS: Famotidine 20 MG TAB PO SCH (09:29)
--- NOTE | 2018-05-21 10:54 | EKG ---
Test Reason : Blood Pressure : / mmHG Vent. Rate : 076 BPM Atrial Rate : 076 BPM P-R Int : 152 ms QRS Dur : 102 ms QT Int : 394 ms P-R-T Axes : 046 043 047 degrees QTc Int : 443 ms Normal sinus rhythm Possible Left atrial enlargement Borderline ECG Confirmed by KIRK GRADY, JAMES ([id number]), video news editor SHELTON MOSELEY ([id number]) on 05/21/2018 10:53:12 AM Referred By: Confirmed By:JAMES BRADLEY MD
[2018-05-21] MEDS: HYDROcodone/Acetaminophen 10/325 mg Tablet PO PRN (11:29)
[2018-05-21 11:32] VITALS: BP 156/98; TEMP 98.1
== END 2018-05-21 12:05 | disposition home or self-care (01) | DRG 352 ==
LOC: ERS 19:54 → SDC/OP 23:00 → SURG B 05-20 00:02
PROVIDERS: ADMIT Surgery; ATTEND Surgery
PROC: 0YU50JZ Supplement Right Inguinal Region with Synthetic Substitute, Open Approach (ICD-10-PCS; principal; 2018-05-20)
DX: K40.30 Unilateral inguinal hernia, with obstruction, without gangrene, not specified as recurrent (principal); Z87.891 Personal history of nicotine dependence; Z98.890 Other specified postprocedural states
CPT/HCPCS: 36415; 80053; 83605; 85025; 93005; 96361; 96374; 96375; A4306; C1781; J0360; J1885; J2001; J2270; J2405; J2704; J3010; S0020; S0028

== ENCOUNTER 2019-03-05 18:38 | Observation (INO) | payer SELFPAY ==
[2019-03-05] MEDS ORDERED: Morphine 4 MG/ML VIAL ONE (19:57)
--- NOTE | 2019-03-05 20:58 | ULT ---
ULTRASOUND DOPPLER DUPLEX VENOUS BILATERAL LOWER EXTREMITIES: DATE: 03/05/2019 HISTORY: Bilateral lower extremity pain, erythema, and edema in 48-year-old male TECHNIQUE: Grayscale, color-flow, and spectral analysis, of major veins of bilateral lower extremities. FINDINGS: There is demonstration of blood flow with normal compressibility, of the bilateral common femoral, pr ofunda femoral, greater saphenous, femoral, popliteal, and posterior tibial, veins. IMPRESSION: Negative. No deep venous thrombosis of bilateral lower extremities.
[2019-03-05 21:19] LABS: Bilirubin Negative (Negative); Blood, Urine Negative (Negative); Clarity CLEAR (Clear); Glucose, Urine (Dipstick) Negative (Negative); Leukocyte Negative (Negative); Nitrite Negative (Negative); Protein, Urine (Dipstick) Negative (Neg-Trace); Specific Gravity, Urine 1.025 (1.002-1.036); Urobilinogen 0.2 mg/dL (0.2-1.0)
[2019-03-05 21:28] LABS: Amphetamine Detected (NotDetected); Barbiturates Screen Not Detected (NotDetected); Benzodiazepine Screen Not Detected (NotDetected); Cocaine Metabolite Screen Not Detected (NotDetected); Medtox Reader # READER 4; Methadone Not Detected (NotDetected); Methamphetamine Detected (NotDetected); Opiate Screen Detected (NotDetected); Oxycodone Screen Not Detected (NotDetected); Phencyclidine (PCP) Not Detected (NotDetected); THC/Cannabinoid Screen Not Detected (NotDetected); Tricyclic Screen Not Detected (NotDetected)
[2019-03-05 21:29] LABS: Medtox Control Line Valid? VALID (VALID)
[2019-03-05] MEDS ORDERED: Piperacillin/Tazobactam 4.5 GM in Sodium Chloride 0.9% 100 ML IVPB SCH (22:00)
[2019-03-05 22:04] VITALS: BMI 30.8
[2019-03-05] MEDS: Sodium Chloride 0.9% 1,000 ML IV SCH (22:20)
[2019-03-05] MEDS ORDERED: Ondansetron PF 4 MG/2 ML Vial IVP PRN (23:34)
[2019-03-05] MEDS ORDERED: Ondansetron ODT 4 MG TAB PO PRN (23:34)
[2019-03-05] MEDS ORDERED: Acetaminophen 325 MG TAB PO PRN (23:39)
--- NOTE | 2019-03-06 01:59 | HP ---
PRIMARY CARE DOCTOR: The patient has no PCP. CODE STATUS: Full code. TIME OF EVALUATION: 10:00 p.m. CHIEF COMPLAINT: Bilateral lower extremity redness. HISTORY OF PRESENT ILLNESS: A 48-year-old male patient with significant past medical problems except for drug abuse. The patient came to the hospital after having severe level worsening bilateral lower extremity redness, tenderness with decreased range of motion with no clear triggers. No alleviating factors. He reported that the symptoms have been present for the past day. He cannot relate any event to this problem. REVIEW OF SYSTEMS: CONSTITUTIONAL: The patient had no fever, chills, generalized weakness. RESPIRATORY: No cough, sputum production, or shortness of breath. CARDIOVASCULAR: No chest pain or palpitation. GASTROINTESTINAL: No nausea. No vomiting, diarrhea, or abdominal pain. [employer]INTENANCE: No dizziness, headache, or feeling lightheaded. GENITOURINARY: No burning on urination. EXTREMITIES: Bilateral lower extremities swelling and redness. All other systems were reviewed and negative except for the findings mentioned above. PAST MEDICAL HISTORY: Positive for osteomyelitis of the right hip. PAST SURGICAL HISTORY: Orthopedic surgery of the right hip, history of vasectomy, and hernia repair. PSYCHIATRIC HISTORY: No previous psych history. FAMILY HISTORY:Reviewed and no contributory for current presentation. SOCIAL HISTORY: No alcohol. No drugs. No smoking history. The patient is a former drug user, abused methamphetamine. Former tobacco user, reportedly quit smoking past year. The patient currently uses heroin. No alcohol use. ALLERGIES: NO KNOWN DRUG ALLERGIES. REPORTED MEDICATIONS: None. PHYSICAL EXAMINATION: VITAL SIGNS: On presentation; blood pressure 137/83 with heart rate 87, respiratory rate was 18, temperature 98, pain was , oxygen saturation was 98% on room air. General Appearance: The patient is alert, oriented, in no acute distress. HEENT: Eyes, normal conjunctivae. Moist oral mucosa. Anicteric. No JVD. RESPIRATORY: Bilateral air entry. No rales or wheezes. Symmetric expansion. CARDIOVASCULAR: Normal rate, regular rhythm. No murmurs. No gallop. No edema. ABDOMEN: Soft. Normal bowel sounds. MUSCULOSKELETAL: Baseline range of motion and strength. SKIN: Warm and intact. No pallor. No rash. The patient has bilateral lower extremity redness, tenderness, swelling, decreased range of motion in the bilateral lower extremities due to the tenderness. Capillary refill seems to be intact. NEUROLOGIC: No evidence of any new focal weakness. Cranial nerves seem to be intact. PSYCH: The patient is in good mood. No anxiety. Optimal judgment. LABORATORY DATA: Reviewed. The patient has a white count of , hemoglobin 13.6, MCV 82, and platelet count 182. Chemistry; sodium 138, potassium 4.0, chloride 103, carbon dioxide 24, anion gap 15, BUN 22, and creatinine 1.17, GFR 66, glucose 104. Lactic acid 1.6. Uric acid 6.5. Calcium 9.2. LFTs were negative. UA was done and was negative. Toxicology was done. The patient was positive for opioids, amphetamines, and methamphetamines. ASSESSMENT AND PLAN: The patient will be placed in the hospital with following medical problems: 1. Bilateral lower extremity cellulitis given redness, tenderness, swelling, and decreased range of motion due to tenderness. The patient has been started on antibiotics. We will continue for now. The patient is at high risk of bloodstream infection due to history of heroin abuse and IV drug use. For that reason, we have covered with broad-spectrum antibiotics. Follow cultures and adjust treatment as needed. 2. Deep venous thrombosis prophylaxis. 3. Drug abuse. Advised to quit using drugs. Job ID: [id number] [facility] HEALTHSonja
[2019-03-06] MEDS: Vancomycin HCl 1.5 GM in Sodium Chloride 0.9% 250 ML 300 ML IVPB SCH ×2 (03:51→16:29)
[2019-03-06] MEDS: traMADol HCl 50 MG TAB PO PRN ×2 (03:55→19:29)
[2019-03-06] MEDS ORDERED: Vancomycin HCl 1.5 GM in Sodium Chloride 0.9% 250 ML 300 ML IVPB SCH (04:00)
[2019-03-06 05:44] LABS: Anion Gap 12 mmol/L (10-20); BUN (Urea Nitrogen) 14 mg/dL (8.9-20.6); Calc. Creatinine Clearance 151 mL/min (70-130); Calcium 8.6 mg/dL (7.8-10.44); Carbon Dioxide 19 mmol/L (22-29); Chloride 110 mmol/L (98-107); Estimated GFR-MDRD 89; Glucose 92 mg/dL (70-105); Sodium 137 mmol/L (136-145)
[2019-03-06] MEDS: Piperacillin/Tazobactam 4.5 GM in Sodium Chloride 0.9% 100 ML IVPB SCH ×3 (06:02→21:47)
[2019-03-06 06:37] LABS: #Eosinphils 0.2 thou/uL (0.0-0.7); #Lymphocytes 1.8 thou/uL (1.20-3.40); #Neutrophils 4.8 thou/uL (1.40-6.50); %Basophils 0.1 % (0.0-1.0); %Lymphocytes 23.3 % (21.0-51.0); %Monocytes 12.5 % (0.0-10.0); %Neutrophils 62.2 % (42.0-75.0); Hemoglobin 11.7 g/dL (14.0-18.0); Mean Corpuscular HGB CONC 32.2 g/dL (32.0-36.0); Mean Corpuscular Hemoglobin 27.6 pg (27.0-31.0); Mean Corpuscular Volume 85.7 fL (78.0-98.0); Mean Platelet Volume 7.8 fL (7.4-10.4); Platelet Count 163 thou/uL (130-400); RBC Distribution Width 13.8 % (11.5-14.5); Red Blood Cell (RBC) Count 4.25 mill/uL (4.70-6.10); White Blood Cell (WBC) Count 7.7 thou/uL (4.8-10.8)
[2019-03-06] MEDS: Enoxaparin Sodium 40 MG/0.4 ML SYRINGE SC SCH (08:40)
[2019-03-06] MEDS: Sodium Chloride 0.9% 1,000 ML IV SCH ×3 (08:40→23:07)
--- NOTE | 2019-03-06 17:40 | PDOC.PN ---
- Subjective Encounter Start Date: 03/06/19 Encounter Start Time: 10:53 Subjective: Patient states he feels worn out and "groggy". -: Continues to have pain in both feet. States he has never had skin infection -: involving his feet before. Feels most pain around his ankles. Has noted improvement with swelling as well as redness. No fevers overnight. Denies any n/v. Eating/drinking without difficulty. Denies any other complaints. Continues to deny drug use despite positive urine test. - Objective Resuscitation Status - Order Detail: 03/05/19 23:34 Resuscitation Status Routine Resuscitation Status: FULL: Full Resuscitation Vital Signs & Weight: Vital Signs (12 hours) Temp Pulse Resp BP Pulse Ox 03/06/19 15:51 99.3 F 82 16 133/77 100 03/06/19 11:40 98.2 F 74 20 130/84 98 03/06/19 07:22 99.0 F 75 20 103/62 97 Weight Weight 239 lb 14.4 oz I&O: 03/05/19 03/06/19 03/07/19 06:59 06:59 06:59 Intake Total 1440 Balance 1440 Result Diagrams: 03/06/19 04:56 03/06/19 04:55 Phys Exam - Physical Examination Constitutional: NAD HEENT: PERRLA, sclera anicteric, oral pharynx no lesions Neck: supple, full ROM Respiratory: no wheezing, no rales, no rhonchi, clear to auscultation bilateral Cardiovascular: RRR Gastrointestinal: soft, non-tender, no distention, positive bowel sounds slight edema involving bilateral feet and ankles as well as erythema, slight warmth (per patient improved) Neurological: normal sensation, moves all 4 limbs Psychiatric: normal affect, A&O x 3 Dx/Plan (1) Cellulitis of both feet Code(s): L03.115 - CELLULITIS OF RIGHT LOWER LIMB; L03.116 - CELLULITIS OF LEFT LOWER LIMB Status: Acute (2) Methamphetamine abuse Code(s): F15.10 - OTHER STIMULANT ABUSE, UNCOMPLICATED Status: Chronic (3) Polysubstance abuse Code(s): F19.10 - OTHER PSYCHOACTIVE SUBSTANCE ABUSE, UNCOMPLICATED Status: Chronic - Plan cont current plan of care, continue antibiotics S/p venogram which was negative. -: Urine positive for opiates, amphetamines and methamphetamine. No UTI. -: Continue to monitor temp and vitals. -: Continue Abx. Repeat labs in AM as well as lactate and CK. * .
[2019-03-06] MEDS: Morphine 2 MG/ML SYRINGE SLOW IVP PRN (21:24)
[2019-03-07 03:35] LABS: Vancomycin, Trough 11.6 ug/mL
[2019-03-07] MEDS: Vancomycin HCl 1.5 GM in Sodium Chloride 0.9% 250 ML 300 ML IVPB SCH (03:41)
[2019-03-07 03:48] LABS: Lactic Acid 0.7 mmol/L (0.5-2.2)
[2019-03-07 03:50] LABS: Anion Gap 14 mmol/L (10-20); BUN (Urea Nitrogen) 8 mg/dL (8.9-20.6); Calc. Creatinine Clearance 164 mL/min (70-130); Calcium 8.7 mg/dL (7.8-10.44); Carbon Dioxide 17 mmol/L (22-29); Chloride 110 mmol/L (98-107); Estimated GFR-MDRD Greater than 90; Glucose 91 mg/dL (70-105); Potassium 3.8 mmol/L (3.5-5.1); Sodium 137 mmol/L (136-145)
[2019-03-07] MEDS: Morphine 2 MG/ML SYRINGE SLOW IVP PRN (04:43)
[2019-03-07] MEDS: Piperacillin/Tazobactam 4.5 GM in Sodium Chloride 0.9% 100 ML IVPB SCH ×2 (05:50→14:43)
[2019-03-07] MEDS: traMADol HCl 50 MG TAB PO PRN (09:00)
[2019-03-07] MEDS: Enoxaparin Sodium 40 MG/0.4 ML SYRINGE SC SCH (09:01)
[2019-03-07 09:04] LABS: #Eosinphils 0.1 thou/uL (0.0-0.7); #Lymphocytes 1.4 thou/uL (1.20-3.40); #Monocytes 0.6 thou/uL (0.11-0.59); #Neutrophils 3.8 thou/uL (1.40-6.50); %Basophils 0.8 % (0.0-1.0); %Eosinophils 2.3 % (0.0-10.0); %Lymphocytes 23.1 % (21.0-51.0); %Monocytes 10.4 % (0.0-10.0); %Neutrophils 63.5 % (42.0-75.0); Hemoglobin 12.3 g/dL (14.0-18.0); Mean Corpuscular HGB CONC 34.8 g/dL (32.0-36.0); Mean Corpuscular Volume 83.2 fL (78.0-98.0); Mean Platelet Volume 7.7 fL (7.4-10.4); Platelet Count 154 thou/uL (130-400); RBC Distribution Width 13.1 % (11.5-14.5); Red Blood Cell (RBC) Count 4.26 mill/uL (4.70-6.10)
[2019-03-07 12:03] VITALS: BP 139/88; TEMP 99
--- NOTE | 2019-03-08 11:28 | DIS ---
DATE OF ADMISSION: 03/05/2019 DATE OF DISCHARGE: 03/07/2019 This is JUAN JOSE Cruz dictating a report for Karen Erwin MD. CONSULTING PHYSICIANS: None. DISCHARGE DIAGNOSES: 1. Bilateral foot cellulitis. 2. Methamphetamine abuse. 3. Polysubstance abuse. HOSPITAL COURSE: Mr. Jeffries is a 48-year-old man with a history of known polysubstance abuse including methamphetamines who presented with bilateral foot pain, redness, and swelling. He was started on IV antibiotics. On initial presentation, he was noted to have a white cell count that was normal and a lactic acid that was also normal. CRP was elevated at 16.99. Urine drug screen was positive for opiates, amphetamines, and methamphetamines. The patient had clinical and symptomatic improvement after being started on antibiotic treatment with Zosyn and vancomycin. He was unable to walk around without any trouble. On day of discharge, the patient is feeling significantly better and very eager to go home. Denies having any pain. Afebrile. REVIEW OF SYSTEMS: The patient reports having no nausea or vomiting. No abdominal pain or cramping. No diarrhea or constipation. He did tell the nurses earlier today had been having a couple of loose stools, but this has fully resolved according to the patient now. Denies having any urinary symptoms. The swelling of his feet and erythema have nearly resolved fully. He denies any further pain in his feet and he is able to walk around with much ease. All other review of systems are negative. PHYSICAL EXAMINATION: GENERAL: The patient appears well developed, in no acute distress. VITAL SIGNS: Temperature 98.8, pulse 68, respirations 18, O2 saturation 98% on room air, blood pressure 124/82. HEENT: Normocephalic and atraumatic. Pupils are equal, round, and reactive to light. Sclerae without icterus. Oropharynx clear. NECK: Supple. LUNGS: Clear to auscultation bilaterally. CARDIAC: Regular rate and rhythm. ABDOMEN: Soft, nontender, nondistended. Normoactive bowel sounds present. EXTREMITIES: No lower leg edema. No calf tenderness. Both feet with significantly improved erythema. Not warm to touch. No wounds or sores. Pulses are strong and equal bilaterally. NEUROLOGIC: Alert and oriented x3. The patient with a flat affect. SKIN: Without rash or jaundice. LABORATORY DATA: White blood counts 6, hemoglobin 12.2, hematocrit 35.4, platelets 154. Sodium 137, potassium 3.8, BUN 8, creatinine 0.84, GFR greater than 90. Lactic acid 0.7. Urinalysis negative. Urine tox screen notable for opiates, amphetamines, and methamphetamines. IMAGING DATA: Venogram on 03/05/2019, no deep venous thrombosis of bilateral lower extremities. CONDITION: Stable at discharge. ACTIVITY: As tolerated. DIET: Regular diet. DISCHARGE MEDICATIONS: The patient was given a prescription for Omnicef 300 mg p.o. twice daily for 10 days. FOLLOWUP: The patient ia advised to follow up with his primary care physician within 1 week and to ensure he has continued improvement. DISPOSITION: The patient medically cleared for discharge home on 03/07/2019. The patient's case was discussed with Dr. Erwin who agrees upon care as described above. Job ID: [id number]
== END 2019-03-07 15:32 | disposition home or self-care (01) ==
LOC: ERS 18:38 → 2SW 20:12
PROVIDERS: ADMIT Hospitalist; ATTEND Hospitalist
DX: L03.116 Cellulitis of left lower limb (principal); L03.115 Cellulitis of right lower limb; F19.10 Other psychoactive substance abuse, uncomplicated; M86.9 Osteomyelitis, unspecified; Z87.891 Personal history of nicotine dependence
CPT/HCPCS: 36415; 80048; 80202; 80306; 81003; 83605; 85025; 85652; 86140; 87324; 87449; 93970; 96361; 96365; 96366; 96367; 96372; 96374; 96375; 96376; G0378; J1650; J2270; J2543; J3370; J3490; J7050

== ENCOUNTER 2020-10-10 12:07 | Outpatient (CLI) | payer OTHER ==
--- NOTE | 2020-10-10 13:02 | RAD ---
CHEST 2 VIEWS: Date: 10/10/2020 HISTORY: Disability exam. COMPARISON: None. FINDINGS: Lungs are clear. No pneumothorax or effusion. Cardiac silhouette and mediastinal contours within norm al limits. No acute osseous abnormality. IMPRESSION: No acute intrathoracic abnormality. POS: HOME
--- NOTE | 2020-10-10 13:06 | RAD ---
RIGHT HIP 2 VIEWS: Date: 10/10/2020 HISTORY: Disability exam. COMPARISON: Radiograph from 2017. Pelvis radiograph from 2018. FINDINGS: The right femoral head and neck have been resected with replacement of antibiotic cement. This is a s imilar appearance to the comparison of 2018 postoperative radiograph. Some mild bilateral subluxation of the femoral metaphysis relative to the cement with some foreshorte vernon. The right obturator ring is intact. IMPRESSION: Low grade lateral subluxation and foreshortening of the right hip relative to the 2018 postoperative radiograph with resection of the right femoral head and neck and replacement with antibiotic spacer. POS: HOME
--- NOTE | 2020-10-10 14:24 | RAD ---
RIGHT FEMUR TWO VIEW: 10/10/20 HISTORY: Pain. COMPARISON: None. FINDINGS: Some low grade lateral subluxation and foreshortening of the right femur relative to the prior pelvis radiograph 2018. No acute fracture. IMPRESSION: Mild lateral subluxation and foreshortening of the right femur with femoral head and neck resection a nd placement of antibiotic spacer. POS: HOME
== END 2020-10-10 12:08 | disposition home or self-care (01) ==
LOC: BICRAD 12:07
PROVIDERS: ATTEND Internal Medicine
DX: Z02.71 Encounter for disability determination (principal); M24.451 Recurrent dislocation, right hip
CPT/HCPCS: 71046

== ENCOUNTER 2020-11-01 19:16 | Emergency (ER) | payer MEDICAID, SELFPAY ==
[2020-11-01] MEDS ORDERED: Clindamycin 150 MG CAP ONE (20:36)
== END 2020-11-01 20:53 | disposition home or self-care (01) ==
LOC: ERS 19:16
DX: L03.116 Cellulitis of left lower limb (principal); L03.115 Cellulitis of right lower limb; Z87.891 Personal history of nicotine dependence
CPT/HCPCS: 99283

== ENCOUNTER 2022-06-15 12:25 | Emergency (ER) | payer OTHER ==
[2022-06-15 14:14] LABS: #Eosinphils 0.2 thou/uL (0.0-0.7); #Lymphocytes 1.4 thou/uL (1.20-3.40); #Neutrophils 5.4 thou/uL (1.40-6.50); %Basophils 0.3 % (0.0-1.0); %Eosinophils 2.1 % (0.0-10.0); %Lymphocytes 17.8 % (21.0-51.0); %Monocytes 12.4 % (0.0-10.0); %Neutrophils 67.4 % (42.0-75.0); Hemoglobin 8.8 g/dL (14.0-18.0); Mean Corpuscular Hemoglobin 23.8 pg (27.0-31.0); Mean Corpuscular Volume 76.8 fL (78.0-98.0); Mean Platelet Volume 7.7 fL (7.4-10.4); Platelet Count 422 thou/uL (130-400); Red Blood Cell (RBC) Count 3.68 mill/uL (4.70-6.10)
[2022-06-15] MEDS ORDERED: Ketorolac Tromethamine 30 MG/ML VIAL ONE (14:30)
[2022-06-15 14:54] LABS: ALT (SGPT) 8 U/L (8-55); AST (SGOT) 9 U/L (5-34); Albumin 3.2 g/dL (3.5-5.0); Alkaline Phosphatase 79 U/L (40-110); Anion Gap 16 mmol/L (10-20); BUN (Urea Nitrogen) 14 mg/dL (8.4-25.7); Bilirubin, Total 0.3 mg/dL (0.2-1.2); Calc. Creatinine Clearance 0 mL/min (70-130); Calcium 9.2 mg/dL (7.8-10.44); Carbon Dioxide 25 mmol/L (22-29); Chloride 99 mmol/L (98-107); Estimated GFR 89; Globulin 5.3 g/dL (2.4-3.5); Glucose 101 mg/dL (70-105); Potassium 4.1 mmol/L (3.5-5.1); Protein, Total 8.5 g/dL (6.0-8.3); Sodium 136 mmol/L (136-145)
[2022-06-15 15:14] LABS: Bacteria/HPF None Seen HPF (None Seen); Bilirubin Negative (Negative); Blood, Urine Negative (Negative); Clarity Turbid (Clear); Glucose, Urine (Dipstick) Normal (Negative); Ketone, Urine Negative (Negative); Leukocyte Negative Leu/uL (Negative); Nitrite Negative (Negative); Protein, Urine (Dipstick) 30 mg/dL (Neg-Trace); RBC/HPF 0-3 HPF (0-3); Specific Gravity, Urine 1.028 (1.002-1.036); Squamous Epithelial 0-3 HPF (0-3); Urobilinogen Normal mg/dL (Less than 2); WBC/HPF 0-3 HPF (0-3)
[2022-06-15] MEDS ORDERED: Iopamidol-370 76% 500 ML 1 ML ONE (15:20)
== END 2022-06-15 17:38 | disposition home or self-care (01) ==
LOC: ERS 12:25
DX: K40.90 Unilateral inguinal hernia, without obstruction or gangrene, not specified as recurrent (principal); D64.9 Anemia, unspecified
CPT/HCPCS: 36415; 74177; 76870; 80053; 81003; 81015; 85025; 85652; 86140; 93976; 96374; J1885; Q9967

== ENCOUNTER 2022-10-03 19:33 | Inpatient (IN) | payer OTHER ==
[2022-10-03] MEDS ORDERED: Ondansetron PF 4 MG/2 ML Vial ONE (19:39)
[2022-10-03] MEDS ORDERED: Morphine 4 MG/ML VIAL ONE (19:39)
[2022-10-03] MEDS ORDERED: Ipratropium/Albuterol 3 ML NEB NEB PRN (20:09)
[2022-10-03] MEDS ORDERED: hydrALAZINE 20 MG/ML VIAL SLOW IVP PRN (20:09)
[2022-10-03] MEDS ORDERED: Ondansetron PF 4 MG/2 ML Vial IVP PRN (20:09)
[2022-10-03] MEDS ORDERED: Sodium Chloride 0.9% 1,000 ML IV SCH (20:15)
[2022-10-03] MEDS ORDERED: TETANUS, DIPHTHERIA TOX,ADULT (TDVAX) 0.5 ML VIAL IM ONE (21:00)
[2022-10-03] MEDS: Morphine 2 MG/ML VIAL SLOW IVP PRN (21:42)
[2022-10-03] MEDS: Cyclobenzaprine 10 MG TAB PO PRN (21:47)
[2022-10-03] MEDS: Famotidine 20 MG TAB PO SCH (21:48)
[2022-10-03] MEDS: Senokot S 8.6-50 MG TAB PO SCH (21:48)
[2022-10-03 22:40] LABS: SARS-CoV-2 NAA Rapid Test Not Detected (NotDetected)
[2022-10-04] MEDS: Acetaminophen 325 MG TAB PO SCH ×2 (00:13→05:56)
[2022-10-04] MEDS: Acetaminophen/Codeine 30-300mg Tablet PO PRN ×2 (00:14→05:56)
[2022-10-04] MEDS: Morphine 2 MG/ML VIAL SLOW IVP PRN ×2 (00:41→03:41)
[2022-10-04 00:53] LABS: Amphetamine Detected (NotDetected); Barbiturates Screen Not Detected (NotDetected); Benzodiazepine Screen Not Detected (NotDetected); Cocaine Metabolite Screen Not Detected (NotDetected); Methadone Not Detected (NotDetected); Methamphetamine Detected (NotDetected); Opiate Screen Detected (NotDetected); Oxycodone Screen Not Detected (NotDetected); Phencyclidine (PCP) Not Detected (NotDetected); THC/Cannabinoid Screen Detected (NotDetected); Tricyclic Screen Not Detected (NotDetected)
[2022-10-04 03:06] VITALS: BMI 29.7
[2022-10-04 07:16] LABS: Anion Gap 12 mmol/L (10-20); BUN (Urea Nitrogen) 9 mg/dL (8.4-25.7); Calc. Creatinine Clearance 165 mL/min (70-130); Calcium 8.8 mg/dL (7.8-10.44); Carbon Dioxide 25 mmol/L (22-29); Chloride 103 mmol/L (98-107); Estimated GFR 107; Glucose 106 mg/dL (70-105); Potassium 3.8 mmol/L (3.5-5.1); Sodium 136 mmol/L (136-145)
[2022-10-04 07:20] LABS: INR-International Normal Ratio 1.2; Prothrombin Time 15.5 sec (12.0-14.7)
[2022-10-04 07:21] LABS: PTT 37.7 sec (22.9-36.1)
[2022-10-04 07:32] LABS: #Lymphocytes 1.2 thou/uL (1.20-3.40); #Monocytes 0.7 thou/uL (0.11-0.59); #Neutrophils 5.2 thou/uL (1.40-6.50); %Basophils 0.2 % (0.0-1.0); %Eosinophils 0.4 % (0.0-10.0); %Lymphocytes 16.8 % (21.0-51.0); %Monocytes 9.4 % (0.0-10.0); %Neutrophils 73.2 % (42.0-75.0); Hemoglobin 9.3 g/dL (14.0-18.0); Hypochromia SLIGHT = 6-15 cells (100X) (0-5/hpf); MDiff Complete? YES; Mean Corpuscular HGB CONC 30.9 g/dL (32.0-36.0); Mean Corpuscular Hemoglobin 22.4 pg (27.0-31.0); Mean Corpuscular Volume 72.5 fl (78.0-98.0); Mean Platelet Volume 7.3 fL (7.4-10.4); Microcytosis SLIGHT = 6-15 cells (100X) (0-5/hpf); Ovalocytes SLIGHT = 2-5 cells (100X) (0-1/hpf); Platelet Count 396 10x3/uL (130-400); Platelet Morphology Comment Appears Adequate; Polychromasia SLIGHT = 2-3 cells (100X) (0-2/hpf); RBC Distribution Width 15.7 % (11.5-14.5); Red Blood Cell (RBC) Count 4.13 mill/uL (4.70-6.10); Tear Drops SLIGHT = 2-5 cells (100X) (0-1/hpf); White Blood Cell (WBC) Count 7.1 10x3/uL (4.8-10.8)
[2022-10-04] MEDS ORDERED: Ferrous Sulfate 325 MG TAB PO SCH (08:00)
[2022-10-04 08:08] VITALS: TEMP 97.7
[2022-10-04] MEDS ORDERED: Bacitracin 1 PK TOP SCH (09:00)
[2022-10-04] MEDS ORDERED: Polyethylene Glycol 3350 17 GM Packet PO SCH (09:00)
[2022-10-04] MEDS ORDERED: Ascorbic Acid 500 mg Chewable Tablet PO SCH (09:00)
[2022-10-04] MEDS: Famotidine 20 MG TAB PO SCH (10:01)
[2022-10-04] MEDS: Senokot S 8.6-50 MG TAB PO SCH (10:02)
[2022-10-04] MEDS: Cyclobenzaprine 10 MG TAB PO PRN (10:08)
[2022-10-04] MEDS ORDERED: Acetaminophen/Codeine 30-300mg Tablet PO SCH (12:00)
[2022-10-04 12:35] VITALS: BP 138/79
[2022-10-07] MEDS ORDERED: FLU VACC QS2022-23(6MOS UP)/PF 60 MCG/0.5 ML SYRINGE IM ONE (09:00)
== END 2022-10-04 16:17 | disposition home or self-care (01) | DRG 86 ==
LOC: ERS 19:33 → SURG B 20:12
PROVIDERS: ADMIT Surgery; ATTEND Surgery
DX: S06.6X1A Traumatic subarachnoid hemorrhage with loss of consciousness of 30 minutes or less, initial encounter (principal); M00.9 Pyogenic arthritis, unspecified; S52.91XA Unspecified fracture of right forearm, initial encounter for closed fracture; S22.20XA Unspecified fracture of sternum, initial encounter for closed fracture; M86.8X8 Other osteomyelitis, other site; S02.85XA Fracture of orbit, unspecified, initial encounter for closed fracture; S02.40DA Maxillary fracture, left side, initial encounter for closed fracture; S02.40FA Zygomatic fracture, left side, initial encounter for closed fracture; K46.9 Unspecified abdominal hernia without obstruction or gangrene; S06.5X1A Traumatic subdural hemorrhage with loss of consciousness of 30 minutes or less, initial encounter; Z20.822 Contact with and (suspected) exposure to COVID-19; V24.49XA Other motorcycle driver injured in collision with heavy transport vehicle or bus in traffic accident, initial encounter; Z98.52 Vasectomy status
CPT/HCPCS: 36415; 70450; 80048; 80306; 85025; 85610; 85730; 86850; 86900; 86901; 96374; 96375; G0390; J2270; J2272; J2405; J7050; U0002

== ENCOUNTER 2023-01-12 07:26 | Inpatient (IN) | payer OTHER ==
[2023-01-12] MEDS ORDERED: Ketorolac Tromethamine 30 MG/ML VIAL ONE (08:12)
[2023-01-12 08:31] LABS: #Eosinphils 0.1 thou/uL (0.0-0.7); #Lymphocytes 1.4 thou/uL (1.20-3.40); #Monocytes 0.6 thou/uL (0.11-0.59); #Neutrophils 3.5 thou/uL (1.40-6.50); %Basophils 0.2 % (0.0-1.0); %Eosinophils 1.5 % (0.0-10.0); %Lymphocytes 24.7 % (21.0-51.0); %Monocytes 11.5 % (0.0-10.0); %Neutrophils 62.2 % (42.0-75.0); Hemoglobin 10.2 g/dL (14.0-18.0); Mean Corpuscular HGB CONC 30.8 g/dL (32.0-36.0); Mean Corpuscular Hemoglobin 22.8 pg (27.0-31.0); Mean Corpuscular Volume 73.8 fl (78.0-98.0); Mean Platelet Volume 7.3 fL (7.4-10.4); Platelet Count 416 10x3/uL (130-400); Red Blood Cell (RBC) Count 4.48 mill/uL (4.70-6.10); White Blood Cell (WBC) Count 5.6 10x3/uL (4.8-10.8)
[2023-01-12 08:46] LABS: Calcium 8.8 mg/dL (7.8-10.44); Chloride 100 mmol/L (98-107); Sodium 138 mmol/L (136-145)
[2023-01-12 08:47] LABS: MDiff Complete? YES; Microcytosis SLIGHT = 6-15 cells (100X) (0-5/hpf); Platelet Morphology Comment Appears Increased; Polychromasia SLIGHT = 2-3 cells (100X) (0-2/hpf)
[2023-01-12 08:57] LABS: ALT (SGPT) 9 U/L (8-55); AST (SGOT) 12 U/L (5-34); Acetaminophen Less than 10.0 mcg/mL (10.0-30.0); Albumin 3.3 g/dL (3.5-5.0); Alcohol Less than 10 mg/dL (Less than 10); Alkaline Phosphatase 80 U/L (40-110); Anion Gap 15 mmol/L (10-20); BUN (Urea Nitrogen) 16 mg/dL (8.4-25.7); Bilirubin, Total 0.3 mg/dL (0.2-1.2); Calc. Creatinine Clearance 0 mL/min (70-130); Carbon Dioxide 27 mmol/L (22-29); Estimated GFR 104; Globulin 4.9 g/dL (2.4-3.5); Glucose 99 mg/dL (70-105); Lipase 17 U/L (8-78); Protein, Total 8.2 g/dL (6.0-8.3); Salicylate Less than 8.0 mg/dL (15.0-30.0)
[2023-01-12] MEDS ORDERED: Cefepime 2 GM VIAL ONE (10:07)
[2023-01-12] MEDS ORDERED: Vancomycin 1 GM/200 ML (FROZEN) BAG ONE (10:07)
[2023-01-12 11:25] VITALS: BMI 29.4
[2023-01-12] MEDS ORDERED: Ondansetron PF 4 MG/2 ML Vial IVP PRN ×2 (11:26→11:30)
[2023-01-12] MEDS ORDERED: cloNIDine 0.1 MG TAB PO PRN (11:26)
[2023-01-12] MEDS ORDERED: diphenhydrAMINE 25 MG CAP PO PRN (11:26)
[2023-01-12] MEDS ORDERED: Dicyclomine 10 MG CAP PO PRN (11:26)
[2023-01-12] MEDS ORDERED: VANCOMYCIN IVPB PRN (11:26)
[2023-01-12] MEDS ORDERED: Acetaminophen 325 MG TAB PO PRN (11:26)
[2023-01-12] MEDS ORDERED: Methocarbamol 500 MG TAB PO PRN (11:26)
[2023-01-12] MEDS ORDERED: D5 1/2 NS w/20 mEq KCL 1,000 ML IV SCH (11:30)
[2023-01-12] MEDS ORDERED: Ondansetron ODT 4 MG TAB SL PRN (11:30)
[2023-01-12] MEDS ORDERED: Lorazepam 2 MG/ML VIAL SLOW IVP PRN (11:41)
[2023-01-12] MEDS ORDERED: Vancomycin HCl 500 MG in Sodium Chloride 0.9% 100 ML IVPB SCH (12:30)
[2023-01-12 13:12] LABS: Bilirubin Negative (Negative); Blood, Urine Negative (Negative); Clarity Extra Turbid (Clear); Glucose, Urine (Dipstick) Normal (Negative); Ketone, Urine Negative (Negative); Leukocyte Negative Leu/uL (Negative); Nitrite Negative (Negative); Protein, Urine (Dipstick) Negative (Neg-Trace); Specific Gravity, Urine 1.028 (1.002-1.036); Urobilinogen Normal mg/dL (Less than 2); pH, Urine 5.5 (5.0-9.0)
[2023-01-12 13:16] LABS: Amphetamine Detected (NotDetected); Barbiturates Screen Not Detected (NotDetected); Benzodiazepine Screen Not Detected (NotDetected); Cocaine Metabolite Screen Not Detected (NotDetected); Methadone Not Detected (NotDetected); Methamphetamine Detected (NotDetected); Opiate Screen Detected (NotDetected); Oxycodone Screen Not Detected (NotDetected); Phencyclidine (PCP) Not Detected (NotDetected); THC/Cannabinoid Screen Not Detected (NotDetected); Tricyclic Screen Not Detected (NotDetected)
[2023-01-12] MEDS: Clindamycin/D5W 900 MG in Premix Bag 1 BAG IVPB SCH ×2 (14:51→20:52)
[2023-01-12] MEDS: Cefepime 2 GM in Sodium Chloride 0.9% 100 ML IVPB SCH (20:43)
[2023-01-12] MEDS: Ketorolac Tromethamine 30 MG/ML VIAL IVP PRN (20:46)
[2023-01-12] MEDS: Vancomycin 1.5 GRAM/300 ML BAG 1.5 GM in Premix Bag 1 BAG IVPB SCH (23:34)
[2023-01-13] MEDS: Clindamycin/D5W 900 MG in Premix Bag 1 BAG IVPB SCH ×2 (05:47→15:53)
[2023-01-13 08:56] LABS: Anion Gap 14 mmol/L (10-20); BUN (Urea Nitrogen) 16 mg/dL (8.4-25.7); Calc. Creatinine Clearance 153 mL/min (70-130); Calcium 8.6 mg/dL (7.8-10.44); Carbon Dioxide 22 mmol/L (22-29); Chloride 105 mmol/L (98-107); Estimated GFR 105; Glucose 89 mg/dL (70-105); Potassium 4.2 mmol/L (3.5-5.1); Sodium 137 mmol/L (136-145)
[2023-01-13] MEDS: Cefepime 2 GM in Sodium Chloride 0.9% 100 ML IVPB SCH (09:16)
[2023-01-13] MEDS ORDERED: fentaNYL 50 mcg/mL 1 mL Vial ONE (10:34)
[2023-01-13] MEDS ORDERED: Midazolam HCl 2 mg/2 ml Vial ONE (10:34)
[2023-01-13] MEDS ORDERED: Lidocaine 1% PF 5 ML VIAL ONE (10:35)
[2023-01-13] MEDS ORDERED: Sodium Bicarbonate 2.5 MEQ/5 ML VIAL ONE (10:35)
[2023-01-13 10:44] LABS: #Eosinphils 0.1 thou/uL (0.0-0.7); #Monocytes 0.5 thou/uL (0.11-0.59); #Neutrophils 4.2 thou/uL (1.40-6.50); %Basophils 0.1 % (0.0-1.0); %Eosinophils 1.7 % (0.0-10.0); %Lymphocytes 17.8 % (21.0-51.0); %Monocytes 8.2 % (0.0-10.0); %Neutrophils 72.2 % (42.0-75.0); Mean Corpuscular HGB CONC 27.6 g/dL (32.0-36.0); Mean Corpuscular Hemoglobin 20.2 pg (27.0-31.0); Mean Corpuscular Volume 73.3 fl (78.0-98.0); Mean Platelet Volume 8.8 fL (7.4-10.4); Platelet Count 268 10x3/uL (130-400); Red Blood Cell (RBC) Count 3.94 mill/uL (4.70-6.10); White Blood Cell (WBC) Count 5.8 10x3/uL (4.8-10.8)
[2023-01-13 11:57] LABS: Hypochromia SLIGHT = 6-15 cells (100X) (0-5/hpf); MDiff Complete? YES; Microcytosis SLIGHT = 6-15 cells (100X) (0-5/hpf); Platelet Morphology Comment Appears Adequate; Polychromasia SLIGHT = 2-3 cells (100X) (0-2/hpf)
[2023-01-13] MEDS: Vancomycin 1.5 GRAM/300 ML BAG 1.5 GM in Premix Bag 1 BAG IVPB SCH (12:45)
[2023-01-13 14:16] LABS: BF Color Yellow; Body Fluid Source Abscess Fluid; Clarity Cloudy/Turbid (Clear)
[2023-01-13 16:06] VITALS: BP 134/82; TEMP 98.2
[2023-01-13] MEDS ORDERED: Acetaminophen 500 MG TAB PO PRN (17:43)
[2023-01-13] MEDS: Ketorolac Tromethamine 30 MG/ML VIAL IVP PRN (18:35)
== END 2023-01-13 20:10 | disposition left against medical advice (07) | DRG 549 ==
LOC: ERS 07:26 → T4-A 10:24
PROVIDERS: ADMIT Family Medicine; ATTEND Hospitalist
PROC: 0S993ZZ Drainage of Right Hip Joint, Percutaneous Approach (ICD-10-PCS; principal; 2023-01-13)
DX: M00.851 Arthritis due to other bacteria, right hip (principal); L03.115 Cellulitis of right lower limb; M60.051 Infective myositis, right thigh; Z98.52 Vasectomy status
CPT/HCPCS: 36415; 49020; 72193; 77012; 80048; 80053; 80306; 80307; 81003; 83605; 83690; 85025; 85060; 85652; 86140; 87040; 87070; 87205; 89051; J0692; J1885; J2250; J3010; J3370; J3370-JW; J3490

== ENCOUNTER 2023-04-18 23:02 | Inpatient (IN) | payer OTHER ==
[2023-04-18 23:37] LABS: Bacteria/HPF None Seen HPF (None Seen); Bilirubin Negative (Negative); Blood, Urine Negative (Negative); CAUTI Indications for Culture Pelvic or flank pain; Clarity Clear (Clear); Glucose, Urine (Dipstick) Normal (Negative); Ketone, Urine Negative (Negative); Leukocyte Negative Leu/uL (Negative); Nitrite Negative (Negative); Protein, Urine (Dipstick) 10 mg/dL (Neg-Trace); RBC/HPF 0-3 HPF (0-3); Specific Gravity, Urine 1.027 (1.002-1.036); Squamous Epithelial 0-3 HPF (0-3); Urobilinogen Normal mg/dL (Less than 2); WBC/HPF 0-3 HPF (0-3); pH, Urine 5.5 (5.0-9.0)
[2023-04-18 23:50] LABS: Urine Culture Reflex No No
[2023-04-18 23:55] LABS: #Eosinphils 0.1 thou/uL (0.0-0.7); #Monocytes 0.4 thou/uL (0.11-0.59); #Neutrophils 2.9 thou/uL (1.40-6.50); %Basophils 0.4 % (0.0-1.0); %Eosinophils 2.2 % (0.0-10.0); %Lymphocytes 29.7 % (21.0-51.0); %Neutrophils 58.5 % (42.0-75.0); Hemoglobin 11.5 g/dL (14.0-18.0); Mean Corpuscular HGB CONC 31.3 g/dL (32.0-36.0); Mean Corpuscular Hemoglobin 24.3 pg (27.0-31.0); Mean Corpuscular Volume 77.4 fl (78.0-98.0); Mean Platelet Volume 8.5 fL (7.4-10.4); Platelet Count 342 10x3/uL (130-400); RBC Distribution Width 15.2 % (11.5-14.5); Red Blood Cell (RBC) Count 4.74 mill/uL (4.70-6.10); White Blood Cell (WBC) Count 4.9 10x3/uL (4.8-10.8)
[2023-04-19 00:22] LABS: ALT (SGPT) 9 U/L (8-55); AST (SGOT) 11 U/L (5-34); Albumin 3.6 g/dL (3.5-5.0); Alkaline Phosphatase 80 U/L (40-110); Anion Gap 13 mmol/L (10-20); BUN (Urea Nitrogen) 16 mg/dL (8.4-25.7); Bilirubin, Total 0.2 mg/dL (0.2-1.2); Calc. Creatinine Clearance 0 mL/min (70-130); Carbon Dioxide 28 mmol/L (22-29); Chloride 107 mmol/L (98-107); Estimated GFR 90; Globulin 3.8 g/dL (2.4-3.5); Glucose 122 mg/dL (70-105); Potassium 4.4 mmol/L (3.5-5.1); Protein, Total 7.4 g/dL (6.0-8.3); Sodium 144 mmol/L (136-145)
[2023-04-19 05:21] VITALS: BMI 29.9
[2023-04-19] MEDS ORDERED: Acetaminophen 325 MG TAB PO PRN (09:07)
[2023-04-19] MEDS ORDERED: Ondansetron ODT 4 MG TAB PO PRN (09:07)
[2023-04-19] MEDS ORDERED: Ondansetron PF 4 MG/2 ML Vial IVP PRN (09:07)
[2023-04-19] MEDS ORDERED: cloNIDine 0.1 MG TAB PO PRN (09:13)
[2023-04-19] MEDS ORDERED: diphenhydrAMINE 25 MG CAP PO PRN (09:15)
[2023-04-19] MEDS ORDERED: Methocarbamol 500 MG TAB PO PRN (09:15)
[2023-04-19] MEDS ORDERED: Nafcillin 2 GM in Sodium Chloride 0.9% 100 ML IVPB SCH (13:00)
[2023-04-19] MEDS: Oxacillin 2 GM in Sodium Chloride 0.9% 100 ML IVPB SCH ×3 (14:19→20:00)
[2023-04-19] MEDS: Ketorolac Tromethamine 30 MG/ML VIAL IVP PRN (14:34)
[2023-04-20] MEDS: Oxacillin 2 GM in Sodium Chloride 0.9% 100 ML IVPB SCH ×6 (01:36→21:18)
[2023-04-20] MEDS: Ketorolac Tromethamine 30 MG/ML VIAL IVP PRN ×2 (09:46→21:21)
[2023-04-20] MEDS: Lorazepam 2 MG/ML VIAL SLOW IVP PRN ×2 (11:09→21:19)
[2023-04-20 11:25] LABS: #Eosinphils 0.1 thou/uL (0.0-0.7); #Monocytes 0.4 thou/uL (0.11-0.59); #Neutrophils 4.8 thou/uL (1.40-6.50); %Basophils 0.3 % (0.0-1.0); %Eosinophils 1.4 % (0.0-10.0); %Lymphocytes 17.4 % (21.0-51.0); %Monocytes 5.7 % (0.0-10.0); %Neutrophils 74.7 % (42.0-75.0); Hemoglobin 10.7 g/dL (14.0-18.0); Mean Corpuscular Hemoglobin 24.9 pg (27.0-31.0); Mean Platelet Volume 10.2 fL (7.4-10.4); Platelet Count 141 10x3/uL (130-400); RBC Distribution Width 15.4 % (11.5-14.5); White Blood Cell (WBC) Count 6.4 10x3/uL (4.8-10.8)
[2023-04-20] MEDS: Morphine 2 MG/ML VIAL SLOW IVP PRN ×2 (11:25→17:16)
[2023-04-20 12:36] LABS: Potassium 4.5 mmol/L (3.5-5.1)
[2023-04-20 12:45] LABS: Anion Gap 14 mmol/L (10-20); BUN (Urea Nitrogen) 15 mg/dL (8.4-25.7); Calc. Creatinine Clearance 144 mL/min (70-130); Carbon Dioxide 21 mmol/L (22-29); Chloride 106 mmol/L (98-107); Estimated GFR 102; Glucose 94 mg/dL (70-105); Sodium 136 mmol/L (136-145)
[2023-04-20 12:46] LABS: Calcium 8.5 mg/dL (7.6-10.4)
[2023-04-21] MEDS: Oxacillin 2 GM in Sodium Chloride 0.9% 100 ML IVPB SCH ×3 (00:16→08:21)
[2023-04-21] MEDS: Morphine 2 MG/ML VIAL SLOW IVP PRN ×2 (00:18→08:19)
[2023-04-21] MEDS: Lorazepam 2 MG/ML VIAL SLOW IVP PRN (04:20)
[2023-04-21 08:50] VITALS: BP 168/98; TEMP 97.7
== END 2023-04-21 11:36 | disposition left against medical advice (07) | DRG 863 ==
LOC: ERS 23:02 → SJJU 04-19 04:05
PROVIDERS: ADMIT Internal Medicine; ATTEND Internal Medicine
DX: T81.49XA Infection following a procedure, other surgical site, initial encounter (principal); L02.415 Cutaneous abscess of right lower limb; M00.071 Staphylococcal arthritis, right ankle and foot; M86.8X8 Other osteomyelitis, other site; B95.61 Methicillin susceptible Staphylococcus aureus infection as the cause of diseases classified elsewhere; S71.001A Unspecified open wound, right hip, initial encounter; F15.90 Other stimulant use, unspecified, uncomplicated; F17.210 Nicotine dependence, cigarettes, uncomplicated; D64.9 Anemia, unspecified; Z98.890 Other specified postprocedural states; Z98.52 Vasectomy status; Y83.8 Other surgical procedures as the cause of abnormal reaction of the patient, or of later complication, without mention of misadventure at the time of the procedure
CPT/HCPCS: 36415; 80048; 80053; 81001; 85025; 85652; 86140; 87070; 87077; 87186; 87205; 97139; 99284; J1885; J2060; J2272; J2700; J3490

== ENCOUNTER 2023-04-27 21:07 | Inpatient (IN) | payer OTHER ==
[~2023-04-27 21:07] MED LIST changes: +Iopamidol-370 76% 500 ML MDV (1 ML CHARGE) ONE; -Ketorolac Tromethamine 30 MG/ML VIAL ONE; -Lidocaine 1% PF 5 ML VIAL ONE; -Ondansetron HCl/PF 4 MG/2 ML Vial ONE; -PROPOFOL 200 MG/20 ML VIAL ONE; -Succinylcholine Chloride 20 MG/ML 10 ml SYRINGE FS ONE
[2023-04-28] MEDS ORDERED: Cefepime 2 GM VIAL ONE (00:19)
[2023-04-28] MEDS ORDERED: cloNIDine 0.1 MG TAB ONE (00:19)
[2023-04-28 00:21] LABS: #Eosinphils 0.1 thou/uL (0.0-0.7); #Monocytes 0.7 thou/uL (0.11-0.59); #Neutrophils 4.5 thou/uL (1.40-6.50); %Basophils 0.3 % (0.0-1.0); %Eosinophils 1.4 % (0.0-10.0); %Lymphocytes 25.2 % (21.0-51.0); %Monocytes 9.8 % (0.0-10.0); Hemoglobin 11.8 g/dL (14.0-18.0); Mean Corpuscular HGB CONC 30.7 g/dL (32.0-36.0); Mean Corpuscular Hemoglobin 24.3 pg (27.0-31.0); Mean Platelet Volume 9.1 fL (7.4-10.4); Platelet Count 335 10x3/uL (130-400); RBC Distribution Width 15.5 % (11.5-14.5); Red Blood Cell (RBC) Count 4.86 mill/uL (4.70-6.10); White Blood Cell (WBC) Count 7.1 10x3/uL (4.8-10.8)
[2023-04-28] MEDS ORDERED: Ketorolac Tromethamine 30 MG/ML VIAL ONE (00:50)
[2023-04-28 00:51] LABS: ALT (SGPT) 12 U/L (8-55); AST (SGOT) 16 U/L (5-34); Albumin 3.7 g/dL (3.5-5.0); Alkaline Phosphatase 82 U/L (40-110); Anion Gap 10 mmol/L (10-20); BUN (Urea Nitrogen) 18 mg/dL (8.4-25.7); Bilirubin, Total Less than 0.2 mg/dL (0.2-1.2); Calc. Creatinine Clearance 0 mL/min (70-130); Calcium 9.1 mg/dL (7.8-10.44); Carbon Dioxide 26 mmol/L (22-29); Chloride 106 mmol/L (98-107); Estimated GFR 76; Globulin 4.5 g/dL (2.4-3.5); Glucose 71 mg/dL (70-105); Potassium 4.3 mmol/L (3.5-5.1); Protein, Total 8.2 g/dL (6.0-8.3); Sodium 138 mmol/L (136-145)
[2023-04-28] MEDS ORDERED: VANCOMYCIN 2 GRAM/500 ML BAG 2 GM in Premix Bag 1 BAG IVPB SCH (01:00)
[2023-04-28] MEDS ORDERED: Acetaminophen 325 MG TAB PO PRN (03:39)
[2023-04-28] MEDS ORDERED: Acetaminophen 650 MG Suppository PR PRN (03:39)
[2023-04-28] MEDS ORDERED: Ondansetron PF 4 MG/2 ML Vial IVP PRN (03:39)
[2023-04-28] MEDS ORDERED: Ondansetron ODT 4 MG TAB PO PRN (03:39)
[2023-04-28 03:45] VITALS: BMI 29.9
[2023-04-28] MEDS: Ketorolac Tromethamine 30 MG/ML VIAL IVP PRN (05:51)
[2023-04-28] MEDS ORDERED: Cefepime 2 GM in Sodium Chloride 0.9% 100 ML IVPB SCH (12:00)
[2023-04-28] MEDS ORDERED: Vancomycin HCl 1.5 GM in Sodium Chloride 0.9% 250 ML 300 ML IVPB SCH (14:00)
[2023-04-28] MEDS ORDERED: Nafcillin 2 GM in Sodium Chloride 0.9% 100 ML IVPB SCH (17:00)
[2023-04-28] MEDS: Oxacillin 2 GM in Sodium Chloride 0.9% 100 ML IVPB SCH ×2 (17:20→21:48)
[2023-04-29] MEDS: Oxacillin 2 GM in Sodium Chloride 0.9% 100 ML IVPB SCH ×5 (01:00→17:10)
[2023-04-29] MEDS: Ketorolac Tromethamine 30 MG/ML VIAL IVP PRN (01:00)
[2023-04-29 07:10] LABS: #Eosinphils 0.2 thou/uL (0.0-0.7); #Monocytes 0.4 thou/uL (0.11-0.59); %Basophils 0.4 % (0.0-1.0); %Eosinophils 3.1 % (0.0-10.0); %Lymphocytes 24.9 % (21.0-51.0); %Monocytes 7.8 % (0.0-10.0); %Neutrophils 63.6 % (42.0-75.0); Hemoglobin 11.1 g/dL (14.0-18.0); Mean Corpuscular HGB CONC 31.1 g/dL (32.0-36.0); Mean Corpuscular Hemoglobin 24.3 pg (27.0-31.0); Mean Corpuscular Volume 78.3 fl (78.0-98.0); Mean Platelet Volume 9.1 fL (7.4-10.4); Platelet Count 265 10x3/uL (130-400); RBC Distribution Width 15.3 % (11.5-14.5); Red Blood Cell (RBC) Count 4.56 mill/uL (4.70-6.10); White Blood Cell (WBC) Count 4.8 10x3/uL (4.8-10.8)
[2023-04-29 07:42] LABS: Anion Gap 13 mmol/L (10-20); BUN (Urea Nitrogen) 21 mg/dL (8.4-25.7); Calc. Creatinine Clearance 147 mL/min (70-130); Calcium 8.5 mg/dL (7.8-10.44); Carbon Dioxide 24 mmol/L (22-29); Chloride 106 mmol/L (98-107); Estimated GFR 103; Glucose 88 mg/dL (70-105); Potassium 4.3 mmol/L (3.5-5.1); Sodium 139 mmol/L (136-145)
[2023-04-29] MEDS: Lorazepam 2 MG/ML VIAL SLOW IVP PRN ×2 (10:31→17:10)
[2023-04-29 16:42] VITALS: BP 169/94; TEMP 98
[2023-04-30] MEDS ORDERED: Thiamine 100 MG TAB PO SCH (09:00)
[2023-04-30] MEDS ORDERED: Folic Acid 1 MG TAB PO SCH (09:00)
== END 2023-04-29 20:25 | disposition left against medical advice (07) | DRG 540 ==
LOC: ERS 21:07 → T4-B 04-28 01:34
PROVIDERS: ADMIT Student in an Organized Health Care Education/Training Program; ATTEND Internal Medicine
DX: M86.9 Osteomyelitis, unspecified (principal); L02.214 Cutaneous abscess of groin; M00.051 Staphylococcal arthritis, right hip; S71.001A Unspecified open wound, right hip, initial encounter; F12.10 Cannabis abuse, uncomplicated; L98.8 Other specified disorders of the skin and subcutaneous tissue; K08.89 Other specified disorders of teeth and supporting structures; D64.9 Anemia, unspecified; Z98.890 Other specified postprocedural states; Z90.79 Acquired absence of other genital organ(s)
CPT/HCPCS: 36415; 80048; 80053; 85025; 85652; 86140; 87040; 87070; 87077; 87186; 87205; 96365; 96366; 96367; 96375; 97139; J0692; J1885; J2060; J2700; J3370; J3490; Q9967

== ENCOUNTER 2025-05-03 11:37 | Inpatient (IN) | payer OTHER, SELFPAY ==
[2025-05-03 13:55] VITALS: BMI 32.9
[2025-05-03] MEDS ORDERED: Calcium Carbonate 500 MG ChewTAB PO PRN (14:45)
[2025-05-03] MEDS ORDERED: Melatonin 3 MG TAB PO PRN (14:45)
[2025-05-03] MEDS ORDERED: Senokot S 8.6-50 MG TAB PO PRN (14:45)
[2025-05-03] MEDS ORDERED: Ondansetron PF 4 MG/2 ML Vial IVP PRN (14:45)
[2025-05-03] MEDS: Heparin 5,000 UNITS/ML VIAL SC SCH (15:16)
[2025-05-03 15:37] LABS: CRP, High Sensitivity at Bryan 14.40 mg/dL (< or = 0.5); Magnesium 1.9 mg/dL (1.6-2.6); Uric Acid 8.9 mg/dL (3.7-7.7)
[2025-05-03 15:39] LABS: Troponin I 0.025 ng/mL (< 0.028)
[2025-05-03 16:16] LABS: Influenza A by NAA Not Detected (NotDetected); Influenza B by NAA Not Detected (NotDetected); SARS-CoV-2 NAA Rapid Test Not Detected (NotDetected)
[2025-05-03] MEDS: predniSONE 20 MG TAB PO SCH (17:28)
[2025-05-03 17:59] LABS: Cocaine Metabolite Screen Negative (Negative); THC/Cannabinoid Screen Negative (Negative); Tricyclic Screen Negative (Negative)
[2025-05-03 18:10] LABS: Legionella Urinary Ag Negative (Negative); Strep pneumo Urine Ag NEGATIVE (NEGATIVE)
[2025-05-03 18:28] LABS: Troponin I 0.019 ng/mL (< 0.028)
[2025-05-03] MEDS: Famotidine 20 MG TAB PO SCH (20:06)
[2025-05-04 04:44] LABS: #Basophils Less than 0.03 10x3/uL (0.0-0.2); #Eosinophils Less than 0.03 10x3/uL (0.0-0.7); #Monocytes 0.47 10x3/uL (0.11-0.59); #Neutrophils 5.96 10x3/uL (1.40-6.50); %Basophils 0.3 % (0.0-1.0); %Eosinophils 0.0 % (0.0-10.0); %Lymphocytes 8.3 % (21.0-51.0); %Monocytes 6.6 % (0.0-10.0); %Neutrophils 84.4 % (42.0-75.0); Hematocrit 42.5 % (42.0-52.0); Hemoglobin 14.2 g/dL (14.0-18.0); Mean Corpuscular Hemoglobin 28.5 pg (27.0-31.0); Mean Corpuscular Volume 85.2 fL (78.0-98.0); Platelet Count 248 10x3/uL (130-400); Red Blood Cell (RBC) Count 4.99 mill/uL (4.70-6.10); White Blood Cell (WBC) Count 7.07 10x3/uL (4.8-10.8)
[2025-05-04 04:57] LABS: Anion Gap 13 mmol/L (10-20); BUN (Urea Nitrogen) 27 mg/dL (8.4-25.7); Calc. Creatinine Clearance 135 mL/min (70-130); Calcium 8.7 mg/dL (7.8-10.44); Carbon Dioxide 21 mmol/L (22-29); Chloride 109 mmol/L (98-107); Glucose 142 mg/dL (70-105); Potassium 4.0 mmol/L (3.5-5.1); Sodium 139 mmol/L (136-145)
[2025-05-04] MEDS ORDERED: predniSONE 20 MG TAB PO SCH (08:00)
[2025-05-04] MEDS: Aspirin 81 mg Enteric Coated Tablet PO SCH (08:54)
[2025-05-04] MEDS: Acetaminophen 325 MG TAB PO PRN (08:56)
[2025-05-04] MEDS: predniSONE 20 MG TAB PO SCH (08:57)
[2025-05-04] MEDS ORDERED: Guaifenesin DM 100-10/5 ML UDCUP PO PRN (09:21)
[2025-05-04] MEDS: cefTRIAXone\\ROCEPHIN 1 GM in Sodium Chloride 0.9% 100 ML IVPB SCH (10:30)
[2025-05-04] MEDS: Azithromycin 500 MG in Sodium Chloride 0.9% 250 ML 250 ML IVPB SCH (11:54)
[2025-05-05 04:13] LABS: #Basophils Less than 0.03 10x3/uL (0.0-0.2); #Eosinophils Less than 0.03 10x3/uL (0.0-0.7); #Monocytes 0.19 10x3/uL (0.11-0.59); #Neutrophils 7.30 10x3/uL (1.40-6.50); %Basophils 0.0 % (0.0-1.0); %Eosinophils 0.0 % (0.0-10.0); %Lymphocytes 6.3 % (21.0-51.0); %Monocytes 2.4 % (0.0-10.0); %Neutrophils 90.8 % (42.0-75.0); Hematocrit 40.4 % (42.0-52.0); Hemoglobin 13.4 g/dL (14.0-18.0); Mean Corpuscular Hemoglobin 28.8 pg (27.0-31.0); Mean Corpuscular Volume 86.7 fL (78.0-98.0); Platelet Count 251 10x3/uL (130-400); Red Blood Cell (RBC) Count 4.66 mill/uL (4.70-6.10); White Blood Cell (WBC) Count 8.04 10x3/uL (4.8-10.8)
[2025-05-05 04:49] LABS: Anion Gap 14 mmol/L (10-20); BUN (Urea Nitrogen) 23 mg/dL (8.4-25.7); Calc. Creatinine Clearance 165 mL/min (70-130); Calcium 9.0 mg/dL (7.8-10.44); Carbon Dioxide 22 mmol/L (22-29); Chloride 110 mmol/L (98-107); Glucose 173 mg/dL (70-105); Potassium 4.3 mmol/L (3.5-5.1); Sodium 142 mmol/L (136-145)
[2025-05-05] MEDS: Lisinopril 20 MG TAB PO SCH (13:46)
[2025-05-06] MEDS: Lisinopril 20 MG TAB PO SCH (08:47)
[2025-05-06] MEDS ORDERED: hydrALAZINE 20 MG/ML VIAL SLOW IVP PRN (10:29)
[2025-05-06] MEDS: Lisinopril 10 MG TAB PO SCH (11:08)
[2025-05-06 15:34] VITALS: BP 155/88; TEMP 98.2
== END 2025-05-06 17:30 | disposition home or self-care (01) | DRG 202 ==
LOC: 2NO 13:21
PROVIDERS: ADMIT Family Medicine; ATTEND Internal Medicine
DX: J40 Bronchitis, not specified as acute or chronic (principal); A41.9 Sepsis, unspecified organism; N17.9 Acute kidney failure, unspecified; E87.20 Acidosis, unspecified; I24.89 Other forms of acute ischemic heart disease; I10 Essential (primary) hypertension; E66.9 Obesity, unspecified; E87.6 Hypokalemia; M17.12 Unilateral primary osteoarthritis, left knee; F15.90 Other stimulant use, unspecified, uncomplicated; Z88.0 Allergy status to penicillin; Z68.33 Body mass index [BMI] 33.0-33.9, adult; Z71.3 Dietary counseling and surveillance; Z91.199 Patient's noncompliance with other medical treatment and regimen due to unspecified reason
CPT/HCPCS: 36415; 80048; 80306; 83036; 83605; 83735; 84550; 85025; 85379; 86141; 87040; 87449; 87636; 87899; 94640; J0456; J0696; J1644; J2919; J7050; J7120; J7512; J7620